=== PATIENT | male | born 1950 | race Caucasian/White ===

== ENCOUNTER → 2017-07-15 09:12 | Outpatient (CLI) | payer MEDICARE ==
[2015-03-11 08:24] VITALS: BMI 25.7
[~2017-07-15 09:12] MED LIST: ATARAX 25 MG TA25 MG PO; BAYER CHEWABLE81 MG PO; GLUCOPHAGE1000 MG PO; LANTUS SOL100 UNIT/1 SQ; LISINOPRIL2.5 MG PO; PLAVIX75 MG PO; PRAVACHOL40 MG PO; PROZAC20 MG PO; TENORMIN25 MG PO
--- NOTE | 2017-07-15 11:29 | NUR ---
ATTEMPTED TO IN AND OUT CATHETERIZE PATIENT WITH 15 BENINESE IN AND OUT CATHETER, UNABLE TO ADVANCE CATHETER, CALLED FOR SMALLER STRAIGHT URINARY CATHETER
--- NOTE | 2017-07-15 11:50 | NUR ---
PATIENT CATHETERIZED SUCCESSFULLY WITH KUDE CATHETER BY GHADA CHILEL RN, ENOUGH URINE DRAINED FOR SPECIMEN AND PATIENT SENT TO BATHROOM TO FINISH URINATING.
[2017-07-15 13:08] LABS: APPEARANCE SLT CLOUDY (CLEAR); COLOR YELLOW (YELLOW); LEUKOCYTE ESTERASE 2+ (NEGATIVE); NITRITE NEGATIVE (NEGATIVE); PROTEIN TRACE mg/dL (NEGATIVE); SPECIFIC GRAVITY 1.015 (1.005-1.020)
[2017-07-15 13:09] LABS: BACTERIA MODERATE /hpf (NONE SEEN); BILIRUBIN NEGATIVE (NEGATIVE); EPITHELIAL CELLS 0-5 /hpf (0-5); GLUCOSE 1000 mg/dL (NEGATIVE); KETONE NEGATIVE (NEGATIVE); MUCUS <1+ /lpf (NONE SEEN); RED CELLS - URINE 0-5 /hpf (0-5); UROBILINOGEN NORMAL (NORMAL); WHITE CELLS - URINE >50 /hpf (0-5)
== END | disposition home or self-care (01) ==
LOC: D.OPS 09:12
PROVIDERS: Radiology Diagnostic Radiology
DX: N39.0 Urinary tract infection, site not specified (principal)

== ENCOUNTER → 2017-07-18 16:29 | Outpatient (CLI) | payer MEDICARE ==
[2017-07-18 17:18] VITALS: BP 125/67; BMI 28.1
--- NOTE | 2017-07-18 17:39 | NUR ---
5258 DISCHARGE INSTRUCTIONS COMPLETE. IN AND OUT CATH DONE. PT HAS NO QUESTIONS OR CONCERNS AT THIS TIME. ESCORTED OUT.
[2017-07-18 19:07] LABS: APPEARANCE CLOUDY (CLEAR); BACTERIA MODERATE /hpf (NONE SEEN); BILIRUBIN NEGATIVE (NEGATIVE); COLOR YELLOW (YELLOW); EPITHELIAL CELLS 0-5 /hpf (0-5); GLUCOSE 1000 mg/dL (NEGATIVE); KETONE NEGATIVE (NEGATIVE); NITRITE NEGATIVE (NEGATIVE); PROTEIN 1+ mg/dL (NEGATIVE); UROBILINOGEN NORMAL (NORMAL); WHITE CELLS - URINE >50 /hpf (0-5)
--- NOTE | 2017-07-19 11:49 | NUR ---
1745 DISCHARGE INSTRUCTIONS GIVEN. PT HAS NO QUESTIONS OR CONCERNS AT THIS TIME. ESCORTED OUT BY CORNELIUS HOWARD.
== END | disposition home or self-care (01) ==
LOC: D.OPS 16:29
PROVIDERS: Radiology Diagnostic Radiology
DX: N39.0 Urinary tract infection, site not specified (principal)

== ENCOUNTER → 2017-07-22 08:05 | Outpatient (CLI) | payer MEDICARE ==
[2017-07-18 17:18] VITALS: BMI 28.1
[2017-07-22 08:38] LABS: APPEARANCE CLOUDY (CLEAR); BILIRUBIN NEGATIVE (NEGATIVE); COLOR YELLOW (YELLOW); GLUCOSE 1000 mg/dL (NEGATIVE); KETONE NEGATIVE (NEGATIVE); NITRITE NEGATIVE (NEGATIVE); PROTEIN 1+ mg/dL (NEGATIVE); UROBILINOGEN NORMAL (NORMAL)
[2017-07-22 08:39] LABS: BACTERIA FEW /hpf (NONE SEEN); WHITE CELLS - URINE >50 /hpf (0-5)
[2017-07-22 08:40] LABS: EPITHELIAL CELLS RARE /hpf (0-5); MUCUS <1+ /lpf (NONE SEEN)
== END | disposition home or self-care (01) ==
LOC: D.LAB 08:05
PROVIDERS: Radiology Diagnostic Radiology
DX: S32.038A Other fracture of third lumbar vertebra, initial encounter for closed fracture (principal)

== ENCOUNTER 2019-08-31 14:15 | Inpatient (IN) | payer MEDICARE ==
[~2019-08-31] VITALS: Ht 175.3 cm; Wt 78.5 kg
[2019-08-31 15:01] LABS: APPEARANCE CLEAR (CLEAR); BILIRUBIN NEGATIVE (NEGATIVE); COLOR YELLOW (YELLOW); GLUCOSE 1000 mg/dL (NEGATIVE); KETONE NEGATIVE (NEGATIVE); NITRITE NEGATIVE (NEGATIVE); PROTEIN NEGATIVE (NEGATIVE); SPECIFIC GRAVITY 1.015 (1.005-1.020); UROBILINOGEN NORMAL (NORMAL)
[2019-08-31 15:02] LABS: UDS - AMPHET NEGATIVE QUAL (NEGATIVE); UDS - BARB NEGATIVE QUAL (NEGATIVE); UDS - BENZO NEGATIVE QUAL (NEGATIVE); UDS - COCAINE NEGATIVE QUAL (NEGATIVE); UDS - OPIATE NEGATIVE QUAL (NEGATIVE); UDS - PCP NEGATIVE QUAL (NEGATIVE); UDS - THC NEGATIVE QUAL (NEGATIVE)
[2019-08-31 15:45] LABS: BASOPHILS 0.3 % (0-2); EOSINOPHILS 2.1 % (0-7); HEMATOCRIT 39.3 % (42.0-54.0); HEMOGLOBIN 12.6 g/dL (13.5-17.5); IMMATURE GRANULOCYTES 0.4 % (0-5); LYMPHOCYTES 15.8 % (15-50); MCH 29.3 pg (26.0-34.0); MCHC 32.1 g/dL (31.0-37.0); MCV 91.4 fL (80.0-100.0); MONOCYTES 7.3 % (2-11); NEUTROPHILS 74.1 % (40-80); PLATELET COUNT 228 10x3/uL (130-400); RDW 13.5 % (11.5-14.5); WBC 9.6 10x3/uL (4.8-10.8)
[2019-08-31 16:00] LABS: CALC OSMOLALITY 289 mosm/kg (275-300); CALCIUM 8.8 mg/dL (8.5-10.1); CARBON DIOXIDE 27.5 mmol/L (21.0-32.0); CHLORIDE - SERUM 101 mmol/L (98-107); CREATININE - SERUM 1.7 mg/dL (0.6-1.3); POTASSIUM - SERUM 4.7 mmol/L (3.5-5.1); SODIUM 135 mmol/L (136-145); UREA NITROGEN 28 mg/dL (7-18); eGFR NON AFRICAN AMERICAN 43 mL/min (90-120)
[2019-08-31 16:06] LABS: GLUCOSE 354 mg/dL (74-106)
[2019-08-31 16:19] LABS: ALBUMIN 3.5 g/dL (3.4-5.0); ALKALINE PHOSPHATASE 74 U/L (46-116); ALT (SGPT) 28 U/L (10-68); BILIRUBIN - TOTAL 0.36 mg/dL (0.2-1.3); CKMB 0.4 U/L (0.0-3.6); CREATINE KINASE 42 UL (21-232); PROTEIN - SERUM 6.7 g/dL (6.4-8.2); THYROID STIMULATING HORMONE 1.57 uIU/mL (0.36-3.74); TROPONIN-I < 0.017 ng/mL (0.000-0.060)
[2019-08-31 16:58] LABS: APTT 26.9 SECONDS (22.8-39.4); INR 1.14 (0.85-1.17); PROTIME 14.1 SECONDS (11.6-15.0)
--- NOTE | 2019-08-31 19:25 | NUR ---
BS 207 SEE EMAR. PT GIVEN MEAL TRAY AT THIS TIME PT SITTING UP IN BED DENIES NEEDS.
[2019-08-31 22:03] VITALS: BP 169/75; BMI 24.4
[2019-09-01 01:06] VITALS: BP 151/76
[2019-09-01 04:49] VITALS: BP 138/71
--- NOTE | 2019-09-01 07:56 | NUR ---
PT LYING IN BED AWAKE ALERT AND ORIENTED, NATIVE, NO NEEDS VOICED, STATED HE IS PLEASED WITH MORNING SUGAR LEVEL. PT BLOOD SUGAR 109 THIS MORNING, CONTINUE WITH PLAN OF CARE
[2019-09-01 09:05] VITALS: BP 130/74
[2019-09-01 10:53] LABS: BASOPHILS 0.3 % (0-2); EOSINOPHILS 2.7 % (0-7); HEMATOCRIT 38.1 % (42.0-54.0); HEMOGLOBIN 12.2 g/dL (13.5-17.5); IMMATURE GRANULOCYTES 0.4 % (0-5); LYMPHOCYTES 15.9 % (15-50); MCH 29.6 pg (26.0-34.0); MCV 92.5 fL (80.0-100.0); MEAN PLATELET VOLUME 10.9 fL (7.4-10.4); MONOCYTES 9.8 % (2-11); NEUTROPHILS 70.9 % (40-80); PLATELET COUNT 215 10x3/uL (130-400); RBC 4.12 10x6/uL (4.20-6.10); RDW 13.6 % (11.5-14.5)
[2019-09-01 11:00] LABS: WBC 7.1 10x3/uL (4.8-10.8)
[2019-09-01 11:10] LABS: ALBUMIN 3.3 g/dL (3.4-5.0); ANION GAP 8.9 mmol/L (8-16); BILIRUBIN - TOTAL 0.51 mg/dL (0.2-1.3); CALCIUM 8.4 mg/dL (8.5-10.1); CARBON DIOXIDE 28.1 mmol/L (21.0-32.0); CREATININE - SERUM 1.5 mg/dL (0.6-1.3); PROTEIN - SERUM 6.7 g/dL (6.4-8.2)
--- NOTE | 2019-09-01 12:16 | NUR ---
I have reviewed this patient and I concur with the Shift Assessment completed by the Licensed Practical Nurse today this shift.
[2019-09-01 12:54] VITALS: BP 185/85
[2019-09-01 13:25] VITALS: Ht 175.3 cm; Wt 78.5 kg
--- NOTE | 2019-09-01 17:09 | NUR ---
OT NOTE: PT COMPLETED SIT TO STAND WITH CGA. PT COMPLETED ADL MOB WITH CGA. PT COMPLETED HAND WASH AT SINK WITH CGA. PT COMPLETED UE AROM AX. THANK YOU,SHARMAINE PALMER
[2019-09-01 17:17] VITALS: BP 119/71
[2019-09-01 20:31] VITALS: BP 139/70
--- NOTE | 2019-09-02 | NUR ---
RESTING IN BED WITH NO S/S OF DISTRESS. REQUESTED TO SKIP MIDNIGHT VS. PAST VS ARE STABLE. WILL CONTINUE TO MONITOR.
--- NOTE | 2019-09-02 00:01 | NUR ---
ANSWERS QUESTIONS APPROPRIATELY BUT IS SLOW TO RESPOND. IV TO THE RT FOREARM WITH NO REDNESS OR SWELLING. ROHIT ALARM ON. DENIES NO NEEDS AT THIS TIME. CONTINUE PLAN OF CARE.
[2019-09-02 03:58] VITALS: BP 134/68
[2019-09-02 06:27] LABS: BASOPHILS 0.3 % (0-2); EOSINOPHILS 3.2 % (0-7); HEMOGLOBIN 12.7 g/dL (13.5-17.5); IMMATURE GRANULOCYTES 0.3 % (0-5); LYMPHOCYTES 23.5 % (15-50); MCH 29.2 pg (26.0-34.0); MCHC 31.8 g/dL (31.0-37.0); MEAN PLATELET VOLUME 11.2 fL (7.4-10.4); MONOCYTES 11.9 % (2-11); NEUTROPHILS 60.8 % (40-80); PLATELET COUNT 227 10x3/uL (130-400); RBC 4.35 10x6/uL (4.20-6.10); RDW 13.8 % (11.5-14.5); WBC 6.2 10x3/uL (4.8-10.8)
[2019-09-02 06:34] LABS: ALBUMIN 3.4 g/dL (3.4-5.0); ANION GAP 12.6 mmol/L (8-16); BILIRUBIN - TOTAL 0.39 mg/dL (0.2-1.3); CALCIUM 8.2 mg/dL (8.5-10.1); CARBON DIOXIDE 27.3 mmol/L (21.0-32.0); CREATININE - SERUM 1.2 mg/dL (0.6-1.3); POTASSIUM - SERUM 3.9 mmol/L (3.5-5.1); PROTEIN - SERUM 6.7 g/dL (6.4-8.2)
--- NOTE | 2019-09-02 07:25 | NUR ---
PT RESTING IN BED. NO SIGNS OF DISTRESS. IV TO RIGHT FORARM PATENT NO REDNESS OR TENDERNESS. ON TELEMETRY 69 SR. ALL FALL PRECAUTIONS ARE IN PLACE. DENIES ANY FURTHER NEED AT THIS TIME. CALL LIGHT IN REACH. BED LOW POSITION. NO FAMILY AT BEDSIDE AT THIS TIME.
[2019-09-02 09:13] VITALS: BP 131/75
--- NOTE | 2019-09-02 10:46 | NUR ---
OT NOTE: PT PERFORMED VERY WELL TODAY. BED MOB WITH CGA; SIT TO STAND WITH MIN ASSIST; AMB WITH MIN ASSIST APPROX 250 FT WITH RW AND G- BALANCE. SLIGHTLY IMPULSIVE WHEN ATTEMPTING TO GET TO CHAIR. EDUCATED PT ON SAFETY AWARENESS AND INSTRUCTED TO USE CALL LIGHT IF NEEDING TO GET UP. AROM EXS WHILE UP IN CHAIR; MIN ASSIST WITH DONNING SOCKS AND GOWN. SET UP WITH WASHING FACE AND HANDS WITH CLOTH. PT A AND O X 3 TODAY. NEHA CUMMINGS, OTR/L
[2019-09-02 12:26] VITALS: BP 110/65
--- NOTE | 2019-09-02 13:39 | MORECARE ---
CASE MANAGEMENT DISCHARGE SUMMARY PATIENT: IWONA ALCANTAR DON UNIT: [id number] ADM DATE: 09/01/19 AGE: 69 : 49 SEX: M ROOM/BED: D.2233 AUTHOR: ERIK REN PHYSICIAN: REFERRING PHYSICIAN: RED NIEVES MD DATE OF SERVICE: 09/02/19 Discharge Plan Patient Name: IWONA ALCANTAR Facility: [facility]:[place] : 1950 Planned Disposition: Home Anticipated Discharge Date: Discharge Date: Expected LOS: Initial Reviewer: [email or web address] Initial Review Date: 09/02/2019 Generated: 09/02/19 2:39 pm DCPIA - Discharge Planning Initial Assessment Updated by [email or web address]: Kaila Strickland on 09/02/19 1:35 pm * Is the patient Alert and Oriented? Yes * How many steps to enter\exit or inside your home? 0/0 * PCP Mary Coates * Pharmacy [facility] * Preadmission Environment Home with Family * ADLs Independent * Equipment Walker * List name and contact numbers for known caregivers / representatives who currently or will assist patient after discharge: Chilango Alcantar - [id number] - [phone] * Verbal permission to speak to the caregivers and representatives has been obtained from the patient. Yes * Community resources currently utilized None * Additional services required to return to the preadmission environment? No * Can the patient safely return to the preadmission environment? Yes * Has this patient been hospitalized within the prior 30 days at any hospital? No Coverage Notice Reviewer: [id number] Raisa Graff Notice Issued Date-Time: 08/31/2019 18:00 Notice Type: Medicare Outpatient Observation Notice Notice Delivered To: Patient Relationship to Patient: Flower Planter Name: Delivery Method: HAND - Hand Delivered Dionna Days: Prior Verbal Notification: Recipient Understood Notice: Recipient Signature: Med Rec Note Co-signed by Attending: Coverage Notice Comment: Patient Name: IWONA ALCANTAR Page 68812 at 1339 All edits/amendments must be made on the electronic document DICTATION DATE: 09/02/19 1339 FAMILY WORKER: SUSAN 09/02/19 1339 RPT#: [id number] [place] DATE: STATUS: ADM IN [facility] [address] [place] [address] END OF REPORT
--- NOTE | 2019-09-02 13:49 | MORECARE ---
CASE MANAGEMENT DISCHARGE SUMMARY PATIENT: IWONA ALCANTAR UNIT: [id number] ADM DATE: 09/01/19 AGE: 69 : 49 SEX: M ROOM/BED: D.2233 AUTHOR: MIKALDOC PHYSICIAN: REFERRING PHYSICIAN: RED NIEVES MD DATE OF SERVICE: 09/02/19 Discharge Plan Patient Name: IWONA ALCANTAR Facility: [facility]:[place] : 1950 Planned Disposition: Home Anticipated Discharge Date: Discharge Date: Expected LOS: Initial Reviewer: [email or web address] Initial Review Date: 09/02/2019 Generated: 09/02/19 2:49 pm Comments DCP- Discharge Planning Updated by [id number]: Kaila Strickland on 09/02/19 12:[address] Patient Name: IWONA ALCANTAR Admission Status: ER Accout number: [id number] Admission Date: 09-01-2019 : 1950 Admission Diagnosis: Attending: RED NIEVES Current LOS: 1 Anticipated DC Date: Planned Disposition: Home Primary Insurance: [facility] MEDICARE SOLUTIONS Discharge Planning Comments: CM met with patient to complete initial dc planning assessment. CM educated patient on the CM role and verbal consent given by patient to complete assessment. Patient lives at home with his mother. States he plans to return home on discharge and feels this is a safe discharge. States he will need to take a taxi to [address] [address] to get his car. States he has money for a taxi. I discussed the availability of inpatient rehab, SNF, home health and additional DME if needed and he declines needs at this time. CM will continue to follow and assist with discharge planning/needs. Line Maintainer: Kaila Strickland DCPIA - Discharge Planning Initial Assessment Updated by [id number]: Kaila Strickland on 09/02/19 1:35 pm * Is the patient Alert and Oriented? Yes * How many steps to enter\exit or inside your home? 0/0 * PCP Mary Coates * [facility] [address] * Preadmission Environment Home with Family * ADLs Independent * Equipment Walker * List name and contact numbers for known caregivers / representatives who currently or will assist patient after discharge: Chilango Alcantar - [id number] - [phone] * Verbal permission to speak to the caregivers and representatives has been obtained from the patient. Yes * Community resources currently utilized None * Additional services required to return to the preadmission environment? No * Can the patient safely return to the preadmission environment? Yes * Has this patient been hospitalized within the prior 30 days at any hospital? No Coverage Notice Reviewer: [id number] Raisa Graff Notice Issued Date-Time: 08/31/2019 18:00 Notice Type: Medicare Outpatient Observation Notice Notice Delivered To: Patient Relationship to Patient: Tank Storage Supervisor Name: Delivery Method: HAND - Hand Delivered Dionna Days: Prior Verbal Notification: Recipient Understood Notice: Recipient Signature: Med Rec Note Co-signed by Attending: Coverage Notice Comment: Last DP export: 09/02/19 12:40 Patient Name: IWONA ALCANTAR Page 37813 at 1349 All edits/amendments must be made on the electronic document DICTATION DATE: 09/02/19 1349 ELECTRIC MOTOR REBUILDER: SUSAN 09/02/19 1349 RPT#: [id number] DC DATE: STATUS: ADM IN [facility] [address] [place] [address] END OF REPORT
[2019-09-02 16:22] VITALS: BP 140/73
[2019-09-02 19:30] VITALS: BP 149/66
[2019-09-03 00:30] VITALS: BP 152/70
[2019-09-03 04:30] VITALS: BP 161/78
[2019-09-03 06:36] LABS: BASOPHILS 0.2 % (0-2); EOSINOPHILS 1.1 % (0-7); HEMATOCRIT 41.7 % (42.0-54.0); HEMOGLOBIN 13.2 g/dL (13.5-17.5); IMMATURE GRANULOCYTES 0.4 % (0-5); LYMPHOCYTES 15.4 % (15-50); MCH 29.1 pg (26.0-34.0); MCHC 31.7 g/dL (31.0-37.0); MCV 92.1 fL (80.0-100.0); MEAN PLATELET VOLUME 11.4 fL (7.4-10.4); MONOCYTES 9.6 % (2-11); NEUTROPHILS 73.3 % (40-80); PLATELET COUNT 226 10x3/uL (130-400); RBC 4.53 10x6/uL (4.20-6.10); RDW 13.8 % (11.5-14.5)
[2019-09-03 06:46] LABS: WBC 10.3 10x3/uL (4.8-10.8)
[2019-09-03 07:11] LABS: ALBUMIN 3.4 g/dL (3.4-5.0); BILIRUBIN - TOTAL 0.35 mg/dL (0.2-1.3); CALCIUM 8.4 mg/dL (8.5-10.1); CREATININE - SERUM 1.4 mg/dL (0.6-1.3)
[2019-09-03 08:03] LABS: ANION GAP 14.2 mmol/L (8-16); POTASSIUM - SERUM 3.2 mmol/L (3.5-5.1)
[2019-09-03 09:02] VITALS: BP 131/66
--- NOTE | 2019-09-03 11:29 | NUR ---
BILLY SINAN- [phone] WOULD LIKE TO ADD HER PHONE NUMBER A SECONDARY CONTACT IF POSSIBLE. PATIENT AGREES.
[2019-09-03 13:07] VITALS: BP 126/59
--- NOTE | 2019-09-03 13:37 | NUR ---
NUTRITION F/U PT TOLERATING DIABETIC DIET. REPORTS GOOD APPETITE AND PO INTAKE. WILL CONTINUE TO PROVIDE DIET, MONITOR PO INTAKE. RD FOLLOWING
--- NOTE | 2019-09-03 14:03 | NUR ---
OT NOTE: PT DOING WELL. REMAINS CGA FOR IN ROOM AMBULATION, TRANSFERS, AND ADLS DUE TO IMPULSIVITY. CONT WORKING ON SAFETY AWARENESS DEFECITS. NEHA CUMMINGS, OTR/L
--- NOTE | 2019-09-03 15:14 | NUR ---
OT NOTE: PT EXHIBITS DECREASED SAFETY AWARENESS. PT REQUIRED CGA FOR ADL MOB AND DYNAMIC BALANCE AXS SECONDARY TO IMPULSIVITY. PT COMPLETED TOILETING TASKS WITH DONNA Maldonado. THANK YOU,SHARMAINE PALMER
[2019-09-03 16:45] VITALS: BP 149/73
--- NOTE | 2019-09-03 19:00 | NUR ---
BEDSIDE REPORT RECEIVED AND CARE OF PT ASSUMED. PT LYING IN SUPINE POSITION WATCHING TV. IV TO LEFT FA SALINE LOCKED. WILL MONITOR FOR NEEDS. BED ALARM IN USE FOR SAFETY.
[2019-09-03 19:30] VITALS: BP 175/76
--- NOTE | 2019-09-03 21:25 | NUR ---
HS MEDICATIONS GIVEN. FSBS 105 THIS CHECK REQUIRING NO COVERAGE PER SLIDING SCALE.
[2019-09-04] VITALS: BP 133/57
[2019-09-04 04:00] VITALS: BP 140/68
[2019-09-04 05:42] LABS: BASOPHILS 0.3 % (0-2); EOSINOPHILS 2.4 % (0-7); HEMATOCRIT 39.3 % (42.0-54.0); HEMOGLOBIN 12.5 g/dL (13.5-17.5); IMMATURE GRANULOCYTES 0.3 % (0-5); LYMPHOCYTES 23.9 % (15-50); MCH 29.3 pg (26.0-34.0); MCHC 31.8 g/dL (31.0-37.0); MCV 92.3 fL (80.0-100.0); MONOCYTES 9.7 % (2-11); NEUTROPHILS 63.4 % (40-80); PLATELET COUNT 203 10x3/uL (130-400); RBC 4.26 10x6/uL (4.20-6.10); RDW 13.8 % (11.5-14.5)
[2019-09-04 05:48] LABS: WBC 7.6 10x3/uL (4.8-10.8)
[2019-09-04 06:32] LABS: ALBUMIN 3.3 g/dL (3.4-5.0); ANION GAP 14.4 mmol/L (8-16); BILIRUBIN - TOTAL 0.29 mg/dL (0.2-1.3); CALCIUM 8.1 mg/dL (8.5-10.1); CARBON DIOXIDE 24.4 mmol/L (21.0-32.0); CREATININE - SERUM 1.4 mg/dL (0.6-1.3); POTASSIUM - SERUM 3.8 mmol/L (3.5-5.1); PROTEIN - SERUM 6.3 g/dL (6.4-8.2)
[2019-09-04 08:07] VITALS: BP 141/60
[2019-09-04 12:58] VITALS: BP 145/80
--- NOTE | 2019-09-04 16:00 | NUR ---
IV THERAPY RESTARTED IN LEFT FOREARM WITH 22G. ONE ATTEMPT. IV THERAPY DC'ED FROM LEFT FOREARM WHERE IT WAS PREVIOUSLY. CONSIDERABLE AMOUNT OF HAIR WAS REMOVED AND REDNESS WHERE IT WAS. CL IN REACH. TOLERATED WELL. WCTM
[2019-09-04 17:43] VITALS: BP 146/62
--- NOTE | 2019-09-04 19:00 | NUR ---
BEDSIDE REPORT RECEIVED AND CARE OF PT ASSUMED. PT LYING IN LOW HADLEY'S POSITION WATCHING TV. IV TO LEFT FA SALINE LOCKED. TELEMETRY IN PLACE PER ORDER. BED ALARM IN USE FOR SAFETY.
[2019-09-04 20:00] VITALS: BP 121/68
--- NOTE | 2019-09-04 20:01 | NUR ---
OT NOTE: PT COMPLETED ADL MOB WITH CGA. PT COMPLETED SIT TO STAND WITH CGA. PT COMPLETED LB HYGIENE TASKS WITH CGA. THANK YOU, SHARMAINE PALMER
--- NOTE | 2019-09-04 20:01 | NUR ---
HS MEDICATIONS GIVEN. FSBS 213 THIS CHECK REQUIRING COVERAGE WITH 4 UNITS OF REGULAR INSULIN PER SLIDING SCALE. GAVE SNACK OF JIGNESH CRACKERS.
--- NOTE | 2019-09-04 23:17 | NUR ---
PT SHOWERED, SHAVED AND PERFORMED ORAL CARE. ALL BEDDING AND GOWN CHANGED.
[2019-09-05] VITALS: BP 129/59
[2019-09-05 04:00] VITALS: BP 96/69
[2019-09-05 06:36] LABS: BASOPHILS 0.1 % (0-2); EOSINOPHILS 0 % (0-7); HEMATOCRIT 38.3 % (42.0-54.0); HEMOGLOBIN 12.6 g/dL (13.5-17.5); IMMATURE GRANULOCYTES 0.2 % (0-5); LYMPHOCYTES 6.9 % (15-50); MCH 29.5 pg (26.0-34.0); MCHC 32.9 g/dL (31.0-37.0); MEAN PLATELET VOLUME 11.2 fL (7.4-10.4); MONOCYTES 2.1 % (2-11); NEUTROPHILS 90.7 % (40-80); PLATELET COUNT 212 10x3/uL (130-400); RBC 4.27 10x6/uL (4.20-6.10); RDW 13.4 % (11.5-14.5); WBC 9.4 10x3/uL (4.8-10.8)
[2019-09-05 06:40] LABS: MCV 89.7 fL (80.0-100.0)
[2019-09-05 07:03] LABS: ALBUMIN 3.5 g/dL (3.4-5.0); ANION GAP 14.2 mmol/L (8-16); BILIRUBIN - TOTAL 0.4 mg/dL (0.2-1.3); CALCIUM 8.5 mg/dL (8.5-10.1); CREATININE - SERUM 1.1 mg/dL (0.6-1.3); POTASSIUM - SERUM 4.2 mmol/L (3.5-5.1)
--- NOTE | 2019-09-05 08:07 | NUR ---
AWAKE AND ALERT. ORIENTED X3. NO C/O AT THIS TIME. LUNGS ARE CLEAR BILATERALLY, NO COUGH NOTED. SKIN IS INTACT WTIHOUT REDNESS. SL TO LEFT FOREARM IS PATENT WITHOUT REDNESS AT INSERTION SITE. VOIDED CLEAR YELLOW URINE IN URINAL. DENIES NEEDS.
[2019-09-05 08:45] VITALS: BP 136/78
--- NOTE | 2019-09-05 10:00 | NUR ---
ATE ALMOST ALL OF BREAKFAST. DENIES NEEDS.
[2019-09-05 12:32] VITALS: BP 132/66
--- NOTE | 2019-09-05 13:14 | CN ---
PATIENT NAME:IWONA BIRCH MEDICAL RECORD: [id number] : [birth year] LOCATION:D.MS [id number] ADMIT DATE: 09/01/19 ACCOUNT: [id number] CONSULTING PHYSICIAN: BEATRIZ OROPEZA MD REFERRING PHYSICIAN: RED NIEVES MD DATE OF CONSULTATION: 09/04/2019 IDENTIFYING DATA: The patient is 69 years old and he was admitted to the hospital 4 days ago because of hyperglycemia and incontinence. HISTORY OF PRESENT ILLNESS: The patient is currently being treated medically. He did have some confusion. At that time, he was admitted and I have reviewed the chart and I am unclear about what I am being asked to evaluate. Please clarify and reconsult if he is still a patient you wish me to see. I do not understand the reason for consult. TRANSINT:[id number] Voice Confirmation ID: [id number] DOCUMENT ID: [id number] BEATRIZ OROPEZA MD at 1314 CC: [id number] DICTATION DATE: 09/04/19 174 ORNAMENT STITCHER: 09/04/19 1830 ADM IN [facility] [address] [place] [address]
[2019-09-05 16:43] VITALS: BP 146/68
--- NOTE | 2019-09-05 17:00 | NUR ---
FSBS 309. GIVEN 8 UNITS REGULAR SUBQ PER SS. CONSENTS FOR AM SURGERY SIGNED AT THIS TIME. ALL QUESTIONS ANSWERED.
--- NOTE | 2019-09-05 18:24 | NUR ---
ATE MOST OF SUPPER. DENIES NEEDS. NO CHANGES NOTED.
--- NOTE | 2019-09-05 19:00 | NUR ---
BEDSIDE REPORT RECEIVED AND CARE OF PT ASSUMED. PT LYING IN SUPINE POSITION WITH EYES CLOSED. IV TO LEFT FA SALINE LOCKED. TELEMETRY IN PLACE AND READING 53 SB AT THIS ASSESSMENT. WILL MONITOR FOR NEEDS.
[2019-09-05 19:57] VITALS: BP 152/73
--- NOTE | 2019-09-05 20:04 | NUR ---
HS MEDICATIONS GIVEN. FSBS 270 THIS CHECK REQUIRING COVERAGE WITH 6 UNITS OF INSULIN PER SLIDING SCALE. WILL CONTINUE TO MONITOR FOR NEEDS.
--- NOTE | 2019-09-05 22:41 | NUR ---
PT HAD HIBACLENS SHOWER AND ALLL LINENS AND GOWN CHANGED.
[2019-09-06] VITALS (19 sets, daily range): BP systolic 116–185; BP diastolic 58–100
--- NOTE | 2019-09-06 | NUR ---
VS STABLE. WILL CONTINUE TO MONITOR.
--- NOTE | 2019-09-06 | NUR ---
NPO STATUS STARTS NOW FOR AM SURGERY.
[2019-09-06 06:33] LABS: BASOPHILS 0 % (0-2); EOSINOPHILS 0 % (0-7); HEMATOCRIT 36.2 % (42.0-54.0); HEMOGLOBIN 11.8 g/dL (13.5-17.5); IMMATURE GRANULOCYTES 0.2 % (0-5); LYMPHOCYTES 9.2 % (15-50); MCH 29.4 pg (26.0-34.0); MCHC 32.6 g/dL (31.0-37.0); MEAN PLATELET VOLUME 11.7 fL (7.4-10.4); MONOCYTES 4.9 % (2-11); NEUTROPHILS 85.7 % (40-80); PLATELET COUNT 221 10x3/uL (130-400); RBC 4.02 10x6/uL (4.20-6.10); RDW 13.6 % (11.5-14.5); WBC 8.7 10x3/uL (4.8-10.8)
[2019-09-06 07:00] LABS: ALBUMIN 3.2 g/dL (3.4-5.0); ANION GAP 12.4 mmol/L (8-16); BILIRUBIN - TOTAL 0.31 mg/dL (0.2-1.3); CALCIUM 8.6 mg/dL (8.5-10.1); CARBON DIOXIDE 26.6 mmol/L (21.0-32.0); CREATININE - SERUM 1.3 mg/dL (0.6-1.3); PROTEIN - SERUM 6.9 g/dL (6.4-8.2)
--- NOTE | 2019-09-06 07:59 | NUR ---
AWAKE AND ALERT. ORIENTED X3. NO C/O AT THIS TIME. LUNGS ARE CLEAR BILATERALLY, NO COUGH NOTED. SKIN IS INTACT WITHOUT REDNESS. SL TO LEFT FOREARM IS PATENT WITHOUT REDNESS AT INSERTION SITE. DENIES NEEDS. NPO FOR SURGERY THIS AM.
--- NOTE | 2019-09-06 08:45 | NUR ---
OFF UNIT VIA BED TO SURGERY.
--- NOTE | 2019-09-06 12:10 | NUR ---
REC'D VIA BED FROM RECOVERY ROOM NURSE, JANICE AND KADE, C/O OF BEING TIRED, BUT NOT HAVING ANY PAIN, VS BP 167/90, HR 70, RR 10,, AND SAT 98% ON ROOM AIR, RIGHT NECK, DRESSING CDI, PIV TO LFT WRIST WITH NS ATTACHED, ASSESSMENT COMPLETED PER FLOWSHEET, NO FAMILY IN WAITING ROOM AT THIS TIME, WILL CONTINUE TO MONITOR
--- NOTE | 2019-09-06 14:09 | NUR ---
C/O OF PAIN 6-7/10 IN NECK, NORCO 5/325 X2, ROBAXIN 750MG, AND DECAFRON 4MG GIVEN PER MAR ORDER, APPLE JUICE AND JELLO TO BEDSIDE, WILL CONTINUE TO MONITOR
--- NOTE | 2019-09-06 16:19 | NUR ---
PC TO JIGNESH BIRCH WHO IS PATIENTS MOM, STATUS UPDATED, STATES SHE WILL CALL BACK ON TOMORROW, NO OTHER NEEDS AT THIS TIME
--- NOTE | 2019-09-06 18:06 | NUR ---
BEDSIDE SHIFT REPORT OBTAINED FROM DANIEL HOWARD.
--- NOTE | 2019-09-06 19:00 | NUR ---
DURING BEDSIDE SHIFT REPORT PT ATTEMPTED TO GET OUT OF BED TO LEAVE TO GO TO THE BATHROOM. ATTEMPTED REORIENTATION. PT INCREASINGLY AGGITATED. URINAL PROVIDED. PT STATES "HE WANTS A NEW NURSE AND WE ARE TRYING TO RESTRAIN HIM." PT REFUSES TO WEAR SCD. WILL CONTINUE TO MONITOR.
--- NOTE | 2019-09-06 20:00 | NUR ---
VS STABLE. WILL CONTINUE TO MONITOR.
--- NOTE | 2019-09-06 20:09 | NUR ---
DR BUI INFORMED OF PT STATUS. NO CERVICAL COLLAR NEEDED. NO PM PAIN MED TO BE GIVEN. NO SCD NEEDED. WILL CONTINUE TO MONITOR.
--- NOTE | 2019-09-06 22:00 | NUR ---
VS STABLE. WILL CONTINUE TO MONITOR.
[2019-09-07] VITALS (9 sets, daily range): BP systolic 137–171; BP diastolic 60–91
--- NOTE | 2019-09-07 02:00 | NUR ---
VS STABLE. WILL CONTINUE TO MONITOR.
--- NOTE | 2019-09-07 04:00 | NUR ---
VS STABLE. WILL CONTINUE TO MONITOR.
[2019-09-07 04:23] LABS: BASOPHILS 0.1 % (0-2); EOSINOPHILS 0 % (0-7); HEMATOCRIT 34.7 % (42.0-54.0); IMMATURE GRANULOCYTES 0.2 % (0-5); LYMPHOCYTES 8.8 % (15-50); MCHC 31.7 g/dL (31.0-37.0); MCV 91.6 fL (80.0-100.0); MEAN PLATELET VOLUME 11.5 fL (7.4-10.4); MONOCYTES 7.7 % (2-11); NEUTROPHILS 83.2 % (40-80); PLATELET COUNT 230 10x3/uL (130-400); RBC 3.79 10x6/uL (4.20-6.10); RDW 13.8 % (11.5-14.5)
[2019-09-07 04:36] LABS: WBC 11.3 10x3/uL (4.8-10.8)
[2019-09-07 04:55] LABS: ANION GAP 11.5 mmol/L (8-16); BILIRUBIN - TOTAL 0.39 mg/dL (0.2-1.3); CALCIUM 7.8 mg/dL (8.5-10.1); CARBON DIOXIDE 27.4 mmol/L (21.0-32.0); CREATININE - SERUM 1.1 mg/dL (0.6-1.3); MAGNESIUM - SERUM 2.1 mg/dL (1.8-2.4); POTASSIUM - SERUM 3.9 mmol/L (3.5-5.1); PROTEIN - SERUM 6.6 g/dL (6.4-8.2)
--- NOTE | 2019-09-07 06:00 | NUR ---
VS STABLE. WILL CONTINUE TO MONITOR.
--- NOTE | 2019-09-07 07:00 | NUR ---
BEDSIDE REPORT RECEIVED. PT AGGITATED AND ANGRY, REFUSING MEDICATIONS, VS, ASSESSMENTS ETC. PT DEMANDED PIV TO BE REMOVED. L FA PIV REMOVED CATH INTACT. PT ABLE TO STATE NAME DATE AND SITUATION. PT ABLE TO STATE 2/3 WORDS GIVEN TO HIM AT THE BEGINNING OF THE ASSESSMENT. PT STATES HE IS LEAVING AT THIS TIME. WAS TOLD HE COULD NOT LEAVE UNTIL I WAS ABLE TO CLARIFY WITH DR BUI. DR BUI PAGED AT THIS TIME. PT PACING IN HIS ROOM.
--- NOTE | 2019-09-07 08:00 | NUR ---
DR BUI AT BEDSIDE. PT AGREED TO GOING TO THE FLOOR AND GOING TO REHAB UPON DISCHARGE. DR BUI NEW ORDER TO TRANSFER OUT OF ICU IMMEDIATELY. HOUSE SUP CALLED GIVEN UPDATE.
--- NOTE | 2019-09-07 08:30 | NUR ---
RECEIVED PATIENT FROM ICU. ALERT AND ORIENTED. UP AD HUY. NO C/O PAIN. NO S/S OF ACUTE DISTRESS NOTED. IV TO LEFT FOREARM, SL. SITE PATENT WITHOUT REDNESS OR SWELLING. DENIES ANY NEEDS AT THIS TIME. CALL LIGHT IN REACH. WILL CONTINUE TO MONITOR.
--- NOTE | 2019-09-07 09:41 | NUR ---
I have reviewed this patient and I concur with the Shift Assessment completed by the Licensed Practical Nurse today this shift.
--- NOTE | 2019-09-07 10:01 | NUR ---
Nutrition follow-up: Diet advanced to consistent CHO PO intake 100% of meals Labs reviewed WT: 173# Will provide food choices with selective menus and honor food preferences within diet restrictions. RDN following.
--- NOTE | 2019-09-07 18:44 | NUR ---
ALERT AND ORIENTED, RESTING IN BED. NO C/O PAIN. NO S/S OF ACUTE DISTRESS NOTED. DENIES ANY NEEDS AT THIS TIME. CALL LIGHT IN REACH. WILL CONTINUE TO MONITOR.
--- NOTE | 2019-09-08 04:52 | NUR ---
I have reviewed this patient and I concur with the Shift Assessment completed by the Licensed Practical Nurse today this shift.
[2019-09-08 06:38] LABS: ALBUMIN 2.9 g/dL (3.4-5.0); ANION GAP 11.1 mmol/L (8-16); BILIRUBIN - TOTAL 0.39 mg/dL (0.2-1.3); CALCIUM 8.1 mg/dL (8.5-10.1); CARBON DIOXIDE 27.7 mmol/L (21.0-32.0); CREATININE - SERUM 1.3 mg/dL (0.6-1.3); POTASSIUM - SERUM 3.8 mmol/L (3.5-5.1); PROTEIN - SERUM 6.5 g/dL (6.4-8.2)
[2019-09-08 06:51] LABS: BASOPHILS 0 % (0-2); EOSINOPHILS 0 % (0-7); HEMATOCRIT 34.8 % (42.0-54.0); IMMATURE GRANULOCYTES 0.3 % (0-5); LYMPHOCYTES 11.7 % (15-50); MCH 28.9 pg (26.0-34.0); MCHC 31.6 g/dL (31.0-37.0); MCV 91.6 fL (80.0-100.0); MEAN PLATELET VOLUME 12.1 fL (7.4-10.4); MONOCYTES 10.7 % (2-11); NEUTROPHILS 77.3 % (40-80); PLATELET COUNT 226 10x3/uL (130-400); RDW 13.9 % (11.5-14.5); WBC 10.1 10x3/uL (4.8-10.8)
--- NOTE | 2019-09-08 09:48 | NUR ---
Rehab Prescreening Consult recieved and the chart has been reviewed. He is [facility] and would reguire a preauth for the rehab. He is up ad aleida and has been signed off by PT. He is to high level for the ARU at this time. Discussed with the CM Kaila Awan RN Clinical Liaison, Rehab
--- NOTE | 2019-09-08 09:53 | MORECARE ---
CASE MANAGEMENT DISCHARGE SUMMARY PATIENT: IWONA ALCANTAR DON UNIT: [id number] ADM DATE: 09/01/19 AGE: 69 : 49 SEX: M ROOM/BED: D.2229 AUTHOR: ERIK REN PHYSICIAN: REFERRING PHYSICIAN: RED NIEVES MD DATE OF SERVICE: 09/08/19 Discharge Plan Patient Name: IWONA ALCANTAR Facility: [facility]:[place] : 1950 Planned Disposition: Home Anticipated Discharge Date: Discharge Date: Expected LOS: Initial Reviewer: [email or web address] Initial Review Date: 09/02/2019 Generated: 09/08/19 10:53 am Comments DCP- Discharge Planning Updated by [id number]: Kaila Strickland on 09/08/19 8:[address] I met with patient today concerning discharge planning/needs. He states a family friend is taking care of his mother while he is in the hospital. He states Dr. Berg wants him to get rehab. I discussed the availability of inpatient rehab vs SNF. He understands he will need authorization from insurance prior to admission to rehab. He states he would like to stay here at [facility] for inpatient rehab. I have placed an order for PT/OT to continue to see him and a rehab screen. CM will continue to follow and assist with discharge planning/needs. DCP- Discharge Planning Updated by [id number]: Kaila Strickland on 09/02/19 12:[address] Patient Name: IWONA ALCANTAR Admission Status: ER Accout number: [id number] Admission Date: 09-01-2019 : 1950 Admission Diagnosis: Attending: RED NIEVES Current LOS: 1 Anticipated DC Date: Planned Disposition: Home Primary Insurance: [facility] MEDICARE SOLUTIONS Discharge Planning Comments: CM met with patient to complete initial dc planning assessment. CM educated patient on the CM role and verbal consent given by patient to complete assessment. Patient lives at home with his mother. States he plans to return home on discharge and feels this is a safe discharge. States he will need to take a taxi to [facility] [address] to get his car. States he has money for a taxi. I discussed the availability of inpatient rehab, SNF, home health and additional DME if needed and he declines needs at this time. CM will continue to follow and assist with discharge planning/needs. Print Graphic Designer: Kaila Strickland DCPIA - Discharge Planning Initial Assessment Updated by [id number]: Kaila Strickland on 09/02/19 1:35 pm * Is the patient Alert and Oriented? Yes * How many steps to enter\exit or inside your home? 0/0 * PCP Mary Coates * Pharmacy [facility] on [address] * Preadmission Environment Home with Family * ADLs Independent * Equipment Walker * List name and contact numbers for known caregivers / representatives who currently or will assist patient after discharge: Chilango Alcantar - [id number] - [phone] * Verbal permission to speak to the caregivers and representatives has been obtained from the patient. Yes * Community resources currently utilized None * Additional services required to return to the preadmission environment? No * Can the patient safely return to the preadmission environment? Yes * Has this patient been hospitalized within the prior 30 days at any hospital? No Coverage Notice Reviewer: [id number] Raisa Graff Notice Issued Date-Time: 08/31/2019 18:00 Notice Type: Medicare Outpatient Observation Notice Notice Delivered To: Patient Relationship to Patient: Special Police Officer Name: Delivery Method: HAND - Hand Delivered Dionna Days: Prior Verbal Notification: Recipient Understood Notice: Recipient Signature: Anibal Rec Note Co-signed by Attending: Coverage Notice Comment: Last DP export: 09/02/19 12:49 Patient Name: IWONA ALCANTAR Page 21100 at 0953 All edits/amendments must be made on the electronic document DICTATION DATE: 09/08/19952 SOLAR SALES SPECIALIST: SUSAN 09/08/19 09 RPT#: [id number] DC DATE: STATUS: ADM IN [facility] [address] [place] [address] END OF REPORT
--- NOTE | 2019-09-08 12:45 | MORECARE ---
CASE MANAGEMENT DISCHARGE SUMMARY PATIENT: IWONA ALCANTAR DON UNIT: [id number] ADM DATE: 09/01/19 AGE: 69 : 49 SEX: M ROOM/BED: D.2229 AUTHOR: ERIK REN PHYSICIAN: REFERRING PHYSICIAN: RED NIEVES MD DATE OF SERVICE: 09/08/19 Discharge Plan Patient Name: IWONA ALCANTAR Facility: [facility]:[place] : 1950 Planned Disposition: Home Anticipated Discharge Date: Discharge Date: Expected LOS: Initial Reviewer: [email or web address] Initial Review Date: 09/02/2019 Generated: 09/08/19 1:45 pm Comments DCP- Discharge Planning Updated by [email or web address]: Kaila Strickland on 09/08/19 8:[address] I met with patient today concerning discharge planning/needs. He states a family friend is taking care of his mother while he is in the hospital. He states Dr. Berg wants him to get rehab. I discussed the availability of inpatient rehab vs SNF. He understands he will need authorization from insurance prior to admission to rehab. He states he would like to stay here at [facility] for inpatient rehab. I have placed an order for PT/OT to continue to see him and a rehab screen. CM will continue to follow and assist with discharge planning/needs. DCP- Discharge Planning Updated by [id number]: Kaila Strickland on 09/02/19 12:[address] Patient Name: IWONA ALCANTAR Admission Status: ER Accout number: [id number] Admission Date: 09-01-2019 : 1950 Admission Diagnosis: Attending: RED NIEVES Current LOS: 1 Anticipated DC Date: Planned Disposition: Home Primary Insurance: [facility] MEDICARE SOLUTIONS Discharge Planning Comments: CM met with patient to complete initial dc planning assessment. CM educated patient on the CM role and verbal consent given by patient to complete assessment. Patient lives at home with his mother. States he plans to return home on discharge and feels this is a safe discharge. States he will need to take a taxi to [facility] [address] to get his car. States he has money for a taxi. I discussed the availability of inpatient rehab, SNF, home health and additional DME if needed and he declines needs at this time. CM will continue to follow and assist with discharge planning/needs. Knot Bumper: Kaila Strickland DCPIA - Discharge Planning Initial Assessment Updated by [email or web address]: Kaila Strickland on 09/02/19 1:35 pm * Is the patient Alert and Oriented? Yes * How many steps to enter\exit or inside your home? 0/0 * PCP Mary Coates * Pharmacy [facility] on [address] * Preadmission Environment Home with Family * ADLs Independent * Equipment Walker * List name and contact numbers for known caregivers / representatives who currently or will assist patient after discharge: Chilango Alcantar - [id number] - [phone] * Verbal permission to speak to the caregivers and representatives has been obtained from the patient. Yes * Community resources currently utilized None * Additional services required to return to the preadmission environment? No * Can the patient safely return to the preadmission environment? Yes * Has this patient been hospitalized within the prior 30 days at any hospital? No External Providers External Provider: [facility] Next Contact Date: Service Request Date: Service Type: Resolution: Reviewer: Comments: Coverage Notice Reviewer: [id number] Raisa Graff Notice Issued Date-Time: 08/31/2019 18:00 Notice Type: Medicare Outpatient Observation Notice Notice Delivered To: Patient Relationship to Patient: Science Instructor Name: Delivery Method: HAND - Hand Delivered Dionna Days: Prior Verbal Notification: Recipient Understood Notice: Recipient Signature: Med Rec Note Co-signed by Attending: Coverage Notice Comment: Last DP export: 09/08/19 8:53 Patient Name: IWONA ALCANTAR Page [phone] at 1245 All edits/amendments must be made on the electronic document DICTATION DATE: 09/08/19 1245 SANDWICH HAND: SUSAN 09/08/19 1245 RPT#: [id number] [place] DATE: STATUS: ADM IN [facility] [address] [place] [address] END OF REPORT
--- NOTE | 2019-09-08 12:51 | MORECARE ---
CASE MANAGEMENT DISCHARGE SUMMARY PATIENT: IWONA ALCANTAR DON UNIT: [id number] ADM DATE: 09/01/19 AGE: 69 : 49 SEX: M ROOM/BED: D.2229 AUTHOR: ERIK REN PHYSICIAN: REFERRING PHYSICIAN: RED NIEVES MD DATE OF SERVICE: 09/08/19 Discharge Plan Patient Name: IWONA ALCANTAR Facility: [facility]:[place] : 1950 Planned Disposition: Home Anticipated Discharge Date: Discharge Date: Expected LOS: Initial Reviewer: [email or web address] Initial Review Date: 09/02/2019 Generated: 09/08/19 1:51 pm Comments DCP- Discharge Planning Updated by [id number]: Kaila Strickland on 09/08/19 8:[address] I met with patient today concerning discharge planning/needs. He states a family friend is taking care of his mother while he is in the hospital. He states Dr. Berg wants him to get rehab. I discussed the availability of inpatient rehab vs SNF. He understands he will need authorization from insurance prior to admission to rehab. He states he would like to stay here at [facility] for inpatient rehab. I have placed an order for PT/OT to continue to see him and a rehab screen. CM will continue to follow and assist with discharge planning/needs. DCP- Discharge Planning Updated by [id number]: Kaila Strickland on 09/02/19 12:[address] Patient Name: IWONA ALCANTAR Admission Status: ER Accout number: [id number] Admission Date: 09-01-2019 : 1950 Admission Diagnosis: Attending: RED NIEVES Current LOS: 1 Anticipated DC Date: Planned Disposition: Home Primary Insurance: [facility] MEDICARE SOLUTIONS Discharge Planning Comments: CM met with patient to complete initial dc planning assessment. CM educated patient on the CM role and verbal consent given by patient to complete assessment. Patient lives at home with his mother. States he plans to return home on discharge and feels this is a safe discharge. States he will need to take a taxi to [address] [address] to get his car. States he has money for a taxi. I discussed the availability of inpatient rehab, SNF, home health and additional DME if needed and he declines needs at this time. CM will continue to follow and assist with discharge planning/needs. Taxi Dancer: Kaila Em DCPIA - Discharge Planning Initial Assessment Updated by [id number]: Kaila Strickland on 09/02/19 1:35 pm * Is the patient Alert and Oriented? Yes * How many steps to enter\exit or inside your home? 0/0 * PCP Mary Coates * Pharmacy [facility] on [address] * Preadmission Environment Home with Family * ADLs Independent * Equipment Walker * List name and contact numbers for known caregivers / representatives who currently or will assist patient after discharge: Chilango Alcantar - [email or web address] - [phone] * Verbal permission to speak to the caregivers and representatives has been obtained from the patient. Yes * Community resources currently utilized None * Additional services required to return to the preadmission environment? No * Can the patient safely return to the preadmission environment? Yes * Has this patient been hospitalized within the prior 30 days at any hospital? No Coverage Notice Reviewer: [id number] Raisa Graff Notice Issued Date-Time: 08/31/2019 18:00 Notice Type: Medicare Outpatient Observation Notice Notice Delivered To: Patient Relationship to Patient: Barrel Rib Matting Machine Operator Name: Delivery Method: HAND - Hand Delivered Dionna Days: Prior Verbal Notification: Recipient Understood Notice: Recipient Signature: Med Rec Note Co-signed by Attending: Coverage Notice Comment: Reviewer: [id number] - Kaila Strickland Notice Issued Date-Time: 09/08/2019 12:47 Notice Type: Patient Choice Letter Notice Delivered To: Patient Relationship to Patient: Self Barrel Rib Matting Machine Operator Name: Delivery Method: HAND - Hand Delivered Dionna Days: Prior Verbal Notification: Recipient Understood Notice: Yes Recipient Signature: Yes Med Rec Note Co-signed by Attending: Coverage Notice Comment: [facility] for [facility] or second choice is [facility] Last DP export: 09/08/19 11:45 Patient Name: IWONA ALCANTAR Page [id number] at 1251 All edits/amendments must be made on the electronic document DICTATION DATE: 09/08/19 1251 ACID ADJUSTER: SUSAN 09/08/19 1251 RPT#: [id number] MS DATE: STATUS: ADM IN [place] [address] [place] [address] END OF REPORT
--- NOTE | 2019-09-08 13:05 | MORECARE ---
CASE MANAGEMENT DISCHARGE SUMMARY PATIENT: IWONA ALCANTAR UNIT: [id number] ADM DATE: 09/01/19 AGE: 69 : 49 SEX: M ROOM/BED: D.2229 AUTHOR: MIKAL,DOC PHYSICIAN: REFERRING PHYSICIAN: RED NIEVES MD DATE OF SERVICE: 09/08/19 Discharge Plan Patient Name: IWONA ALCANTAR Facility: [facility]:[place] : 1950 Planned Disposition: Home Anticipated Discharge Date: Discharge Date: Expected LOS: Initial Reviewer: [id number] Initial Review Date: 09/02/2019 Generated: 09/08/19 2:05 pm Comments DCP- Discharge Planning Updated by [id number]: Kaila Em on 09/08/19 12:[address] Patient is too high level for inpatient rehab per Massiel. I spoke with the patient and he is agreeable to home health which PT and OT recommend. IKE for [facility] signed. I spoke with Taty at [facility] and referral faxed. He states he has a friend that will run errands for him and does house keeping. He states she also may be able to pick him up at discharge. Her name is Kat Cartagena and phone number is [phone]. I called her and she states she will be able to transport him home and to call her at her number or if it is in the morning to call at the patient's house, she will be taking care of his mother. CM will continue to follow and assist with discharge planning/needs. DCP- Discharge Planning Updated by [id number]: Kaila Strickland on 09/08/19 8:[address] I met with patient today concerning discharge planning/needs. He states a family friend is taking care of his mother while he is in the hospital. He states Dr. Berg wants him to get rehab. I discussed the availability of inpatient rehab vs SNF. He understands he will need authorization from insurance prior to admission to rehab. He states he would like to stay here at [facility] for inpatient rehab. I have placed an order for PT/OT to continue to see him and a rehab screen. CM will continue to follow and assist with discharge planning/needs. DCP- Discharge Planning Updated by [id number]: Kaila Strickland on 09/02/19 12:[address] Patient Name: IWONA ALCANTAR Admission Status: ER Accout number: [id number] Admission Date: 09-01-2019 : 1950 Admission Diagnosis: Attending: RED NIEVES Current LOS: 1 Anticipated DC Date: Planned Disposition: Home Primary Insurance: [facility] MEDICARE SOLUTIONS Discharge Planning Comments: CM met with patient to complete initial dc planning assessment. CM educated patient on the CM role and verbal consent given by patient to complete assessment. Patient lives at home with his mother. States he plans to return home on discharge and feels this is a safe discharge. States he will need to take a taxi to [facility] [address] to get his car. States he has money for a taxi. I discussed the availability of inpatient rehab, SNF, home health and additional DME if needed and he declines needs at this time. CM will continue to follow and assist with discharge planning/needs. District Administrative Assistant: Kaila Strickland DCPIA - Discharge Planning Initial Assessment Updated by [id number]: Kaila Strickland on 09/02/19 1:35 pm * Is the patient Alert and Oriented? Yes * How many steps to enter\exit or inside your home? 0/0 * PCP Mary Coates * Pharmacy [facility] * Preadmission Environment Home with Family * ADLs Independent * Equipment Walker * List name and contact numbers for known caregivers / representatives who currently or will assist patient after discharge: Chilango Alcantar - mother - [phone] * Verbal permission to speak to the caregivers and representatives has been obtained from the patient. Yes * Community resources currently utilized None * Additional services required to return to the preadmission environment? No * Can the patient safely return to the preadmission environment? Yes * Has this patient been hospitalized within the prior 30 days at any hospital? No Coverage Notice Reviewer: [email or web address] - Alyx Graff Notice Issued Date-Time: 08/31/2019 18:00 Notice Type: Medicare Outpatient Observation Notice Notice Delivered To: Patient Relationship to Patient: Flight Nurse Name: Delivery Method: HAND - Hand Delivered Dionna Days: Prior Verbal Notification: Recipient Understood Notice: Recipient Signature: Med Rec Note Co-signed by Attending: Coverage Notice Comment: Reviewer: [id number] - Kaila Strickland Notice Issued Date-Time: 09/08/2019 12:47 Notice Type: Patient Choice Letter Notice Delivered To: Patient Relationship to Patient: Self Flight Nurse Name: Delivery Method: HAND - Hand Delivered Dionna Days: Prior Verbal Notification: Recipient Understood Notice: Yes Recipient Signature: Yes Med Rec Note Co-signed by Attending: Coverage Notice Comment: IKE for [facility] or second choice is [facility] Last DP export: 09/08/19 11:51 Patient Name: IWONA ALCANTAR Page 78497 at 1305 All edits/amendments must be made on the electronic document DICTATION DATE: 09/08/19 1305 CORRECTIONAL FACILITY PSYCHIATRIST: SUSAN 09/08/19 1305 RPT#: [id number] DC DATE: STATUS: ADM IN [facility] [address] [place] [address] END OF REPORT
[2019-09-08] MEDS ORDERED: ROBAXIN PO (15:29)
--- NOTE | 2019-09-08 15:58 | MORECARE ---
CASE MANAGEMENT DISCHARGE SUMMARY PATIENT: IWONA ALCANTAR UNIT: [id number] ADM DATE: 09/01/19 AGE: 69 : 49 SEX: M ROOM/BED: D.2229 AUTHOR: ERIK REN PHYSICIAN: REFERRING PHYSICIAN: RED NIEVES MD DATE OF SERVICE: 09/08/19 Discharge Plan Patient Name: IWONA ALCANTAR Facility: [facility]:[place] : 1950 Planned Disposition: Home Anticipated Discharge Date: Discharge Date: Expected LOS: Initial Reviewer: [email or web address] Initial Review Date: 09/02/2019 Generated: 09/08/19 4:57 pm Comments DCP- Discharge Planning Updated by [id number]: Kaila Strickland on 09/08/19 2:[address] Patient Name: IWONA ALCANTAR Encounter No: [id number] : 1950 Primary Insurance: [facility] MEDICARE SOLUTIONS Anticipated DC Date: Planned Disposition: Home External Planned Provider: : DCP follow-up note: Patient in agreement with discharge plan. No changes to plan. Taty at [facility] informed of discharging today. Case management will follow and assist as needed. Kaila Strickland DCP- Discharge Planning Updated by [id number]: Kaila Strickland on 09/08/19 12:[address] Patient is too high level for inpatient rehab per Massiel. I spoke with the patient and he is agreeable to home health which PT and OT recommend. IKE for [facility] signed. I spoke with Taty at [facility] and referral faxed. He states he has a friend that will run errands for him and does house keeping. He states she also may be able to pick him up at discharge. Her name is Kat Cartagena and phone number is [phone]. I called her and she states she will be able to transport him home and to call her at her number or if it is in the morning to call at the patient's house, she will be taking care of his mother. CM will continue to follow and assist with discharge planning/needs. DCP- Discharge Planning Updated by [id number]: Kaila Strickland on 09/08/19 8:[address] I met with patient today concerning discharge planning/needs. He states a family friend is taking care of his mother while he is in the hospital. He states Dr. Berg wants him to get rehab. I discussed the availability of inpatient rehab vs SNF. He understands he will need authorization from insurance prior to admission to rehab. He states he would like to stay here at [facility] for inpatient rehab. I have placed an order for PT/OT to continue to see him and a rehab screen. CM will continue to follow and assist with discharge planning/needs. DCP- Discharge Planning Updated by [id number]: Kaila Strickland on 09/02/19 12:[address] Patient Name: IWONA ALCANTAR Admission Status: ER Accout number: [id number] Admission Date: 09-01-2019 : 1950 Admission Diagnosis: Attending: RED NIEVES Current LOS: 1 Anticipated DC Date: Planned Disposition: Home Primary Insurance: [facility] MEDICARE SOLUTIONS Discharge Planning Comments: CM met with patient to complete initial dc planning assessment. CM educated patient on the CM role and verbal consent given by patient to complete assessment. Patient lives at home with his mother. States he plans to return home on discharge and feels this is a safe discharge. States he will need to take a taxi to [facility] [address] to get his car. States he has money for a taxi. I discussed the availability of inpatient rehab, SNF, home health and additional DME if needed and he declines needs at this time. CM will continue to follow and assist with discharge planning/needs. Hr Internship: Kaila Strickland DCPIA - Discharge Planning Initial Assessment Updated by [email or web address]: Kaila Strickland on 09/02/19 1:35 pm * Is the patient Alert and Oriented? Yes * How many steps to enter\exit or inside your home? 0/0 * PCP Mary Coates * Pharmacy [facility] * Preadmission Environment Home with Family * ADLs Independent * Equipment Walker * List name and contact numbers for known caregivers / representatives who currently or will assist patient after discharge: Chilango Alcantar - mother - [phone] * Verbal permission to speak to the caregivers and representatives has been obtained from the patient. Yes * Community resources currently utilized None * Additional services required to return to the preadmission environment? No * Can the patient safely return to the preadmission environment? Yes * Has this patient been hospitalized within the prior 30 days at any hospital? No Coverage Notice Reviewer: [id number] Raisa Graff Notice Issued Date-Time: 08/31/2019 18:00 Notice Type: Medicare Outpatient Observation Notice Notice Delivered To: Patient Relationship to Patient: Gasoline Engine Inspector Name: Delivery Method: HAND - Hand Delivered Dionna Days: Prior Verbal Notification: Recipient Understood Notice: Recipient Signature: Med Rec Note Co-signed by Attending: Coverage Notice Comment: Reviewer: [id number] Strickland Notice Issued Date-Time: 09/08/2019 12:47 Notice Type: Patient Choice Letter Notice Delivered To: Patient Relationship to Patient: Self Gasoline Engine Inspector Name: Delivery Method: HAND - Hand Delivered Dionna Days: Prior Verbal Notification: Recipient Understood Notice: Yes Recipient Signature: Yes Med Rec Note Co-signed by Attending: Coverage Notice Comment: IKE for [place] [facility] or second choice is [facility] Reviewer: [email or web address] Raisa Strickland Notice Issued Date-Time: 09/08/2019 15:44 Notice Type: IM Discharge Notice Notice Delivered To: Patient Relationship to Patient: Self Gasoline Engine Inspector Name: Delivery Method: HAND - Hand Delivered Dionna Days: Prior Verbal Notification: Recipient Understood Notice: Yes Recipient Signature: Yes Med Rec Note Co-signed by Attending: Coverage Notice Comment: IMM explained, signed, given, copy placed in MR Last DP export: 09/08/19 12:05 Patient Name: IWONA ALCANTAR Page [id number] at 1558 All edits/amendments must be made on the electronic document DICTATION DATE: 09/08/191556 DIRECT CHILL CASTER: SUSAN 09/08/191556 RPT#: [id number] DC DATE: STATUS: ADM IN [facility] [address] [place] [address] END OF REPORT
[2019-09-08] MEDS ORDERED: PREDNISONE10 MG PO (16:08)
--- NOTE | 2019-09-08 17:12 | NUR ---
IV DCD WITH CATH TIP INTACT.DISCHARGE INSTRUCTIONS,STATES UNDERSTANDING. CALL TO LATOSHA GARNER [phone] FOR [facility]
--- NOTE | 2019-09-08 19:44 | NUR ---
OT NOTE: PT COMPLETED ADL MOB WITH MIN A WITH GAIT BELT. PT COMPLETED SUPINE TO SIT WITH MIN A. PT COMPLETED UB HYGIENE TASKS WITH SBA/CGA. THANK YOU, SHARMAINE PALMER
--- NOTE | 2019-09-10 06:53 | MORECARE ---
CASE MANAGEMENT DISCHARGE SUMMARY PATIENT: IWONA ALCANTAR UNIT: [id number] ADM DATE: 09/01/19 AGE: 69 : 49 SEX: M ROOM/BED: D.2229 AUTHOR: MIKALDOC PHYSICIAN: REFERRING PHYSICIAN: RED NIEVES MD DATE OF SERVICE: 09/10/19 Discharge Plan Patient Name: IWONA ALCANTAR Facility: [facility]:[place] : 1950 Planned Disposition: Home Anticipated Discharge Date: Discharge Date: 09/08/2019 Expected LOS: 0 Initial Reviewer: [email or web address] Initial Review Date: 09/02/2019 Generated: 09/10/19 7:53 am Comments DCP- Discharge Planning Updated by [id number]: Kaila Strickland on 09/08/19 2:[address] Patient Name: IWONA ALCANTAR Encounter No: [id number] : 1950 Primary Insurance: [facility] MEDICARE SOLUTIONS Anticipated DC Date: Planned Disposition: Home External Planned Provider: : DCP follow-up note: Patient in agreement with discharge plan. No changes to plan. Taty at [facility] informed of discharging today. Case management will follow and assist as needed. Kaila Strickland DCP- Discharge Planning Updated by [id number]: Kaila Strickland on 09/08/19 12:[address] Patient is too high level for inpatient rehab per Massiel. I spoke with the patient and he is agreeable to home health which PT and OT recommend. IKE for [facility] signed. I spoke with Taty at [facility] and referral faxed. He states he has a friend that will run errands for him and does house keeping. He states she also may be able to pick him up at discharge. Her name is Kat Cartagena and phone number is [phone]. I called her and she states she will be able to transport him home and to call her at her number or if it is in the morning to call at the patient's house, she will be taking care of his mother. CM will continue to follow and assist with discharge planning/needs. DCP- Discharge Planning Updated by [id number]: Kaila Strickland on 09/08/19 8:[address] I met with patient today concerning discharge planning/needs. He states a family friend is taking care of his mother while he is in the hospital. He states Dr. Berg wants him to get rehab. I discussed the availability of inpatient rehab vs SNF. He understands he will need authorization from insurance prior to admission to rehab. He states he would like to stay here at [facility] for inpatient rehab. I have placed an order for PT/OT to continue to see him and a rehab screen. CM will continue to follow and assist with discharge planning/needs. DCP- Discharge Planning Updated by [id number]: Kaila Em on 09/02/19 12:[address] Patient Name: IWONA ALCANTAR Admission Status: ER Accout number: [id number] Admission Date: 09-01-2019 : 1950 Admission Diagnosis: Attending: RED NIEVES Current LOS: 1 Anticipated DC Date: Planned Disposition: Home Primary Insurance: [facility] MEDICARE SOLUTIONS Discharge Planning Comments: CM met with patient to complete initial dc planning assessment. CM educated patient on the CM role and verbal consent given by patient to complete assessment. Patient lives at home with his mother. States he plans to return home on discharge and feels this is a safe discharge. States he will need to take a taxi to [facility] [address] to get his car. States he has money for a taxi. I discussed the availability of inpatient rehab, SNF, home health and additional DME if needed and he declines needs at this time. CM will continue to follow and assist with discharge planning/needs. Transmission Specialist: Kaila Strickland DCPIA - Discharge Planning Initial Assessment Updated by [id number]: aKila Strickland on 09/02/19 1:35 pm * Is the patient Alert and Oriented? Yes * How many steps to enter\exit or inside your home? 0/0 * PCP Mary Coates * Pharmacy [facility] on [address] * Preadmission Environment Home with Family * ADLs Independent * Equipment Walker * List name and contact numbers for known caregivers / representatives who currently or will assist patient after discharge: Chilango Alcantar - mother - [phone] * Verbal permission to speak to the caregivers and representatives has been obtained from the patient. Yes * Community resources currently utilized None * Additional services required to return to the preadmission environment? No * Can the patient safely return to the preadmission environment? Yes * Has this patient been hospitalized within the prior 30 days at any hospital? No Coverage Notice Reviewer: [id number] Raisa Graff Notice Issued Date-Time: 08/31/2019 18:00 Notice Type: Medicare Outpatient Observation Notice Notice Delivered To: Patient Relationship to Patient: Line Installer Trolley Name: Delivery Method: HAND - Hand Delivered Dionna Days: Prior Verbal Notification: Recipient Understood Notice: Recipient Signature: Med Rec Note Co-signed by Attending: Coverage Notice Comment: Reviewer: [id number] Strickland Notice Issued Date-Time: 09/08/2019 12:47 Notice Type: Patient Choice Letter Notice Delivered To: Patient Relationship to Patient: Self Line Installer Trolley Name: Delivery Method: HAND - Hand Delivered Dionna Days: Prior Verbal Notification: Recipient Understood Notice: Yes Recipient Signature: Yes Med Rec Note Co-signed by Attending: Coverage Notice Comment: IKE for [place] [facility] or second choice is [facility] Reviewer: [id number] Strickland Notice Issued Date-Time: 09/08/2019 15:44 Notice Type: IM Discharge Notice Notice Delivered To: Patient Relationship to Patient: Self Line Installer Trolley Name: Delivery Method: HAND - Hand Delivered Dionna Days: Prior Verbal Notification: Recipient Understood Notice: Yes Recipient Signature: Yes Med Rec Note Co-signed by Attending: Coverage Notice Comment: IMM explained, signed, given, copy placed in MR Last DP export: 09/08/19 2:58 Patient Name: IWONA ALCANTAR Page 74639 at 0653 All edits/amendments must be made on the electronic document DICTATION DATE: 09/10/19652 RAILROAD DETECTIVE: SUSAN 09/10/19652 RPT#: [id number] DC DATE:09/08/19 STATUS: DIS IN [facility] [address] [place] [address] END OF REPORT
--- NOTE | 2019-09-25 09:47 | OP ---
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 SURGEON: Val Bui MD PROCEDURE: Anterior cervical discectomy and fusion at C4-C5 and C5-C6 with Zavation anterior cervical plate and screws, PEEK interbody cages, Lilian bone allograft with bone stem cells. DESCRIPTION AND TECHNIQUE: After induction of general endotracheal anesthesia, the patient was positioned supine on the operating table. Neck was prepped and draped in usual sterile fashion. Fluoroscopic x-ray and Dillon dissector localized the C4-C5 interspace. After infiltration of skin with 1:100,000 epinephrine and 1% lidocaine, a transverse skin incision was carried out from the midline to the sternocleidomastoid muscle. The platysma was divided with #15 blade. Using blunt and sharp dissection with Metzenbaum scissors, I proceeded in avascular plane medial to the carotid sheath. The C4-C5 and C5-C6 interspace was identified with fluoroscopic x-ray and a spinal needle. The longus colli muscles were elevated from C4, C5, and C6. Osteophytes removed anteriorly with Adson rongeurs. Portal distracting pins were placed in the bodies of C4, C5, and C6. The C4-C5 and C5-C6 interspaces were incised with a #11 blade. Pituitary rongeurs and curettes were used to prepare the endplates at each level at C4-C5 and C5-C6 into the disc space and disc material. Osteophytes removed with the Midas Scott drill under microscopic illumination at each level. The posterior longitudinal was removed at C4-C5 and C5-C6 with 2 mm Cloward rongeurs. Following this, the central dura as well as the nerve roots were decompressed well. Peek interbody cages were placed in disc spaces at C4-C5 and C5-C6. Prior to this, they were filled with Lilian bone allograft with bone stem cells. Zavation anterior cervical plate and screws was used to span the C4-C5 and C5-C6 interspaces. Locking cams were tightened down over the screw heads. Good position of the hardware was confirmed with fluoroscopic x-ray. Meticulous hemostasis was maintained throughout the wound. Wound was irrigated with copious amounts of Ancef irrigant solution. The platysma and subdermal layer closed with interrupted 3-0 Vicryl suture. The skin was reapproximated with Steri-Strips and benzoin. A sterile dressing was applied to the wound. The patient was awakened in good condition, taken to recovery. All counts were reported as correct. Estimated blood loss was minimal. TRANSINT:[id number] Voice Confirmation ID: [id number] DOCUMENT ID: [id number] OPERATIVE REPORT [id number] IWONA BIRCH, VAL CARIAS at 0947 CC: [id number] DICTATION DATE: 09/10/1933 SEARCH ENGINE OPTIMIZATION MANAGER: 09/10/19 0726 DIS IN 09/08/19 [id number] [place] [address]
== END 2019-09-08 17:14 | disposition home health service (06) | DRG 471 ==
LOC: D.ER 14:15 → D.MS 17:50 → OBSVTIME 17:50 → D.MS 17:50 → D.SDCHOLD 09-02 13:25 → D.ICU 09-06 11:03 → D.MS 09-07 08:22
PROVIDERS: Emergency Medicine; Neurological Surgery; ADMIT Internal Medicine Nephrology; ATTEND Internal Medicine Nephrology
PROC: 0RB30ZZ Excision of Cervical Vertebral Disc, Open Approach (ICD-10-PCS; 2019-09-06)
PROC: 0RG20A0 Fusion of 2 or more Cervical Vertebral Joints with Interbody Fusion Device, Anterior Approach, Anterior Column, Open Approach (ICD-10-PCS; principal; 2019-09-06 06:53)
DX: M48.02 Spinal stenosis, cervical region (principal); G93.41 Metabolic encephalopathy; J96.01 Acute respiratory failure with hypoxia; R53.2 Functional quadriplegia; G91.9 Hydrocephalus, unspecified; G99.2 Myelopathy in diseases classified elsewhere; E11.65 Type 2 diabetes mellitus with hyperglycemia; I25.10 Atherosclerotic heart disease of native coronary artery without angina pectoris; I10 Essential (primary) hypertension; E78.5 Hyperlipidemia, unspecified; M19.90 Unspecified osteoarthritis, unspecified site; F41.8 Other specified anxiety disorders; F03.90 Unspecified dementia, unspecified severity, without behavioral disturbance, psychotic disturbance, mood disturbance, and anxiety; N40.0 Benign prostatic hyperplasia without lower urinary tract symptoms; Z91.81 History of falling

== ENCOUNTER 2019-09-24 02:04 | Emergency (ER) | payer MEDICARE ==
[~2019-09-24] VITALS: Ht 175.3 cm; Wt 75.0 kg
[~2019-09-24 02:04] MED LIST changes: +PREDNISONE10 MG PO; +ROBAXIN PO
[2019-09-24 02:05] VITALS: Ht 175.3 cm; Wt 75.0 kg
[2019-09-24 03:28] LABS: HEMATOCRIT 33.9 % (42.0-54.0); HEMOGLOBIN 11.2 g/dL (13.5-17.5); LYMPHOCYTES 24.4 % (15-50); MCH 29.7 pg (26.0-34.0); MCV 89.9 fL (80.0-100.0); MEAN PLATELET VOLUME 9.7 fL (7.4-10.4); NEUTROPHILS 62.8 % (40-80); RBC 3.77 10x6/uL (4.20-6.10); RDW 13.5 % (11.5-14.5); WBC 5.4 10x3/uL (4.8-10.8)
[2019-09-24 03:31] LABS: PLATELET COUNT 178 10x3/uL (130-400)
[2019-09-24 03:33] LABS: CALC OSMOLALITY 289 mosm/kg (275-300); CALCIUM 8.4 mg/dL (8.5-10.1); CHLORIDE - SERUM 106 mmol/L (98-107); CREATININE - SERUM 1.4 mg/dL (0.6-1.3); GLUCOSE 113 mg/dL (74-106); SODIUM 143 mmol/L (136-145); UREA NITROGEN 25 mg/dL (7-18); eGFR NON AFRICAN AMERICAN 53 mL/min (90-120)
[2019-09-24 03:50] LABS: ALBUMIN 2.9 g/dL (3.4-5.0); ALKALINE PHOSPHATASE 73 U/L (46-116); ALT (SGPT) 41 U/L (10-68); BILIRUBIN - TOTAL 0.33 mg/dL (0.2-1.3); CREATINE KINASE 77 UL (21-232); LIPASE 90 U/L (73-393); MAGNESIUM - SERUM 2.3 mg/dL (1.8-2.4); PRO BNP 968 pg/mL (0-125); PROTEIN - SERUM 6.5 g/dL (6.4-8.2); TROPONIN-I < 0.017 ng/mL (0.000-0.060)
[2019-09-24 04:10] LABS: APPEARANCE CLEAR (CLEAR); BILIRUBIN NEGATIVE (NEGATIVE); COLOR YELLOW (YELLOW); GLUCOSE 100 mg/dL (NEGATIVE); KETONE NEGATIVE (NEGATIVE); NITRITE NEGATIVE (NEGATIVE); PROTEIN 1+ mg/dL (NEGATIVE); UROBILINOGEN NORMAL (NORMAL)
[2019-09-24 04:18] LABS: UDS - AMPHET NEGATIVE QUAL (NEGATIVE); UDS - BARB NEGATIVE QUAL (NEGATIVE); UDS - BENZO NEGATIVE QUAL (NEGATIVE); UDS - COCAINE NEGATIVE QUAL (NEGATIVE); UDS - OPIATE NEGATIVE QUAL (NEGATIVE); UDS - PCP NEGATIVE QUAL (NEGATIVE); UDS - THC NEGATIVE QUAL (NEGATIVE)
[2019-09-24] MEDS ORDERED: CHRONULAC30 ML PO (06:59)
[2019-09-24 07:18] VITALS: BP 168/83
== END 2019-09-24 07:18 | disposition home or self-care (01) ==
LOC: D.ER 02:04
PROVIDERS: Family Medicine
DX: K59.00 Constipation, unspecified (principal); R53.1 Weakness; E11.9 Type 2 diabetes mellitus without complications; Z79.4 Long term (current) use of insulin

== ENCOUNTER → 2020-02-29 07:21 | Outpatient (CLI) | payer MEDICARE ==
[2019-09-24 02:05] VITALS: BMI 24.4
[~2020-02-29 07:21] MED LIST changes: +CHRONULAC30 ML PO
--- NOTE | 2020-03-02 08:24 | EC ---
PATIENT:IWONA BIRCH DATE OF SERVICE: 02/29/20 SEX: M MEDICAL RECORD: [id number] DATE OF : 48 LOCATION:[facility] AGE OF PATIENT: 70 ADMISSION DATE: 02/29/20 REFERRING PHYSICIAN: INTERPRETING PHYSICIAN: FRANCO PARR MD ECHOCARDIOGRAM REPORT ECHO CHARGES 4 ECHO COMPLETE Date: 02/29/20 CLINICAL DIAGNOSIS: HTN HEART MURMUR ECHOCARDIOGRAPHIC MEASUREMENTS (adult normal given) AC root (d.<3.7cm) 3.6 cm LV Septum d (<1.2 cm> 1.4 cm Valve Excursion 1.8 cm LV Septum (systole) 1.7 cm Left Atria (s.<4.0cm> 4.0 cm LVPW d(<1.2cm) 1.5 cm RV (d.<2.3cm) 4.1 cm LVPW (sytole) 1.9 cm LV diastole(<5.6CM) 5.2 cm MV E-F(>70mm/sec) cm LV systole 3.1 cm LVOT Diameter 1.9 cm MV exc.(>10mm) 1.1 cm Est.ejection fraction (50-75%) % DOPPLER: LVIT cm/sec A 82.0 cm/sec E 52.0 cm/sec LA cm/sec RVSP 28 mmHg LVOT 72 cm/sec AOP1/2T m/s Asc. Ao 107 cm/sec RVOT 68 cm/sec RA cm/sec PA 115 cm/sec AV Gradient Peak 4.62 mmHg AV Mean 2.42 mmHg AV Area cm MV Gradient Peak mmHg MV Mean mmHg MV Area cm COMMENTS: Steam Conditioner Operator: 2 DAVE MARTINEZ Fleet Assistant: 3 Dr. Mcallister TAPE# PACS Pericardial Effusion N DATE OF SERVICE: Adequate 2D, color flow imaging, spectral Doppler, and M-Mode. LVH is present. LV internal dimensions are normal. Wall motion is normal. EF is greater than or equal to 55%. Aortic valve is tricuspid. No evidence of stenosis by Doppler interrogation. Left atrium is normal at 4.0 cm. Mitral valve shows no prolapse. Trace MR. Right-sided chambers are grossly normal. Mild TR. ECHOCARDIOGRAM REPORT [id number] IWONA BIRCH TRANSINT:[id number] Voice Confirmation ID: [id number] DOCUMENT ID: [id number] FRANCO PARR MD at 0824 CC: [id number] DICTATION DATE: 03/01/20 0843 MASTER AT ARMS: 03/01/20 0929 DEP CLI 02/29/20 [id number] [place] [address]
== END | disposition home or self-care (01) ==
LOC: D.HCCECHO 07:21
PROVIDERS: ATTEND Internal Medicine Cardiovascular Disease
DX: I25.119 Atherosclerotic heart disease of native coronary artery with unspecified angina pectoris (principal); I10 Essential (primary) hypertension; R09.89 Other specified symptoms and signs involving the circulatory and respiratory systems

== ENCOUNTER 2020-12-19 19:33 | Emergency (ER) | payer MEDICARE ==
[~2020-12-19] VITALS: Ht 175.3 cm; Wt 75.0 kg
[~2020-12-19 19:33] MED LIST changes: +ACETAMINOPHEN325 MG PO; +ACETAMINOPHEN500 M1 PO; +BUPROPION HCL200 M1 PO; +COLACE100 MG PO; +CYCLOBENZAPRINE10 MG PO; +FLORAJEN3 CAPS460 MG PO; +HYDROCODON-ACE1 EAC7 PO; +LANTUS INS100 UNITS/ SC; +LEVOFLOXACIN500 MG PO; +MEDROL DOSE PACK4 MG PO; +MIRALAX17 GM PO; +PHENAZOPYRIDIN100 MG PO; +PRAVACHOL20 MG PO; +PROSCAR5 MG PO; +PROTONIX40 MG PO; +WELLBUTRIN XL150 M1 PO; +ZOFRAN4 MG PO
[2020-12-19 19:38] VITALS: BP 135/70; Ht 175.3 cm; Wt 75.0 kg
[2020-12-19] MEDS ORDERED: PROZAC20 MG PO (19:49)
[2020-12-19] MEDS ORDERED: BUPROPION XL150 MG PO (19:49)
== END 2020-12-19 21:03 | disposition home or self-care (01) ==
LOC: D.ER 19:33
DX: R45.851 Suicidal ideations (principal); R45.4 Irritability and anger; E11.9 Type 2 diabetes mellitus without complications; Z79.4 Long term (current) use of insulin; Z95.5 Presence of coronary angioplasty implant and graft; F32.9 Major depressive disorder, single episode, unspecified; M54.9 Dorsalgia, unspecified

== ENCOUNTER 2021-03-04 12:06 | Observation (INO) | payer MEDICARE ==
[~2021-03-04] VITALS: Ht 175.3 cm; Wt 74.8 kg
[~2021-03-04 12:06] MED LIST changes: +BUPROPION XL150 MG PO
[2021-03-04 12:57] VITALS: Ht 175.3 cm; Wt 74.8 kg
[2021-03-04 13:31] LABS: BASOPHILS 0.3 % (0-2); EOSINOPHILS 9.6 % (0-7); HEMOGLOBIN 10.6 g/dL (13.5-17.5); IMMATURE GRANULOCYTES 0.3 % (0-5); LYMPHOCYTE ABS# 0.64 10x3/uL (1.32-3.57); LYMPHOCYTES 6.8 % (15-50); MCH 27.7 pg (26.0-34.0); MCHC 31.2 g/dL (31.0-37.0); MCV 88.8 fL (80.0-100.0); MEAN PLATELET VOLUME 10.5 fL (7.4-10.4); MONOCYTES 10.7 % (2-11); NEUTROPHILS 72.3 % (40-80); PLATELET COUNT 311 10x3/uL (130-400); RBC 3.83 10x6/uL (4.20-6.10); RDW 14.4 % (11.5-14.5); WBC 9.4 10x3/uL (4.8-10.8)
[2021-03-04 13:37] LABS: APTT 27.2 SECONDS (22.8-39.4); INR 1.22 (0.85-1.17); PROTIME 14.3 SECONDS (11.6-15.0)
[2021-03-04 13:39] LABS: CALC OSMOLALITY 291 mosm/kg (275-300); CALCIUM 9.1 mg/dL (8.5-10.1); CARBON DIOXIDE 31.4 mmol/L (21.0-32.0); CHLORIDE - SERUM 103 mmol/L (98-107); CREATININE - SERUM 1.9 mg/dL (0.6-1.3); POTASSIUM - SERUM 4.5 mmol/L (3.5-5.1); SODIUM 142 mmol/L (136-145); UREA NITROGEN 36 mg/dL (7-18); eGFR NON AFRICAN AMERICAN 37 mL/min (90-120)
[2021-03-04 13:44] LABS: GLUCOSE 115 mg/dL (74-106)
--- NOTE | 2021-03-04 13:52 | NUR ---
RESPIRATORY CALLED AT THIS TIME FOR BREATHING TREATMENT AND ABG'S
[2021-03-04 13:56] LABS: ALBUMIN 3.1 g/dL (3.4-5.0); ALKALINE PHOSPHATASE 99 U/L (30-120); ALT (SGPT) 23 U/L (10-68); BILIRUBIN - TOTAL 0.23 mg/dL (0.2-1.3); CKMB 0.9 U/L (0.0-3.6); CREATINE KINASE 56 UL (21-232); PRO BNP 1261 pg/mL (0-125); PROTEIN - SERUM 7.2 g/dL (6.4-8.2)
[2021-03-04 14:00] LABS: TROPONIN-I < 0.017 ng/mL (0.000-0.060)
[2021-03-04 14:30] VITALS: BP 147/77
[2021-03-04 15:30] VITALS: BP 154/75
--- NOTE | 2021-03-04 15:30 | NUR ---
PT RETURN FROM SCAN, MONIORS AND IV FLUIDS RECONNECTED AT THIS TIME
[2021-03-04 15:39] LABS: BILIRUBIN NEGATIVE (NEGATIVE); KETONE NEGATIVE (NEGATIVE); NITRITE NEGATIVE (NEGATIVE); SQUAMOUS EPITHELIAL 0-5 HPF (0-4); UROBILINOGEN NORMAL mg/dL (< 2); WHITE CELLS - URINE >50 HPF (0-1)
[2021-03-04 15:40] LABS: BACTERIA MANY HPF (NONE SEEN)
[2021-03-04 16:30] VITALS: BP 164/83
--- NOTE | 2021-03-04 18:21 | NUR ---
PT BLOOD GLUCOSE 69, NO SYMPTOMS, PT REQUESTED SANDWICH TRAY, SANDWICH TRAY, SODA, AND PUDDING PROVIDED, PT IS SITTING UP EATING AT THIS TIME.
--- NOTE | 2021-03-04 18:43 | NUR ---
REPORT HAS BEEN CALED ON PT TO ALEX RN AWAITING TRANPORT TO ROOM.
--- NOTE | 2021-03-04 19:05 | NUR ---
PT TO ROOM 2135 VIA WHEELCHAIR ACCOMPANIED BY HOSPITAL STAFF.
[2021-03-04 20:32] VITALS: BP 118/69
[2021-03-04 21:46] VITALS: BP 104/62
--- NOTE | 2021-03-05 00:38 | NUR ---
CARLIN, AAOX4. DURING ADMISSION PROCESS, PT REQUESTED TO GO HOME, STATES, "I FEEL MUCH BETTER THAN I DID THIS MORNING AND THESE PAST FEW DAYS." THIS NURSE EXPLAINED RISKS OF LEAVING AMA AND BENEFITS OF STAYING INPATIENT, PT VERBALIZED UNDERSTANDING. ENCOURAGED PT TO ARRANGE APPOINTMENT WITH HIS PCP, DR. JAJA LEOS. SPOKE WITH BARBY BUTT APRN, REGARDING PT REQUEST, AMA FORM SIGNED AND WITNESSED. PIV TO LEFT HAND DC'D, TIP INTACT, TOLERATED WELL. PT OFF FLOOR.
== END 2021-03-05 00:49 | disposition left against medical advice (07) ==
LOC: D.ER 12:06 → D.M2 14:33 → OBSVTIME 14:33 → D.M2 03-05 00:49
PROVIDERS: Family Medicine; ADMIT Emergency Medicine; ATTEND Emergency Medicine
DX: R06.09 Other forms of dyspnea (principal); G72.81 Critical illness myopathy; E86.0 Dehydration; N17.9 Acute kidney failure, unspecified; E11.65 Type 2 diabetes mellitus with hyperglycemia; F32.9 Major depressive disorder, single episode, unspecified; G62.9 Polyneuropathy, unspecified; Z53.29 Procedure and treatment not carried out because of patient's decision for other reasons; Z79.4 Long term (current) use of insulin

== ENCOUNTER 2021-03-19 10:48 | Emergency (ER) | payer MEDICARE ==
[~2021-03-19] VITALS: Ht 175.3 cm; Wt 75.0 kg
[2021-03-19 11:03] VITALS: Ht 175.3 cm; Wt 75.0 kg
[2021-03-19 11:45] LABS: BASOPHILS 0.6 % (0-2); EOSINOPHILS 8.2 % (0-7); HEMATOCRIT 30.1 % (42.0-54.0); HEMOGLOBIN 9.8 g/dL (13.5-17.5); LYMPHOCYTES 7.4 % (15-50); MCH 27.6 pg (26.0-34.0); MCHC 32.5 g/dL (31.0-37.0); MCV 84.7 fL (80.0-100.0); MEAN PLATELET VOLUME 7.7 fL (7.4-10.4); MONOCYTES 7.6 % (2-11); NEUTROPHILS 76.2 % (40-80); PLATELET COUNT 318 10x3/uL (130-400); RBC 3.56 10x6/uL (4.20-6.10); RDW 15.1 % (11.5-14.5)
[2021-03-19 11:53] LABS: CALC OSMOLALITY 284 mosm/kg (275-300); CALCIUM 8.4 mg/dL (8.5-10.1); CHLORIDE - SERUM 104 mmol/L (98-107); CREATININE - SERUM 1.4 mg/dL (0.6-1.3); GLUCOSE 135 mg/dL (74-106); INR 1.29 (0.85-1.17); PROTIME 14.9 SECONDS (11.6-15.0); SODIUM 140 mmol/L (136-145); UREA NITROGEN 25 mg/dL (7-18); eGFR NON AFRICAN AMERICAN 53 mL/min (90-120)
[2021-03-19 11:54] LABS: D-DIMER-QUANTITATIVE 0.93 ug/mLFEU (0.20-0.54)
[2021-03-19 12:11] LABS: ALBUMIN 2.9 g/dL (3.4-5.0); ALKALINE PHOSPHATASE 91 U/L (30-120); ALT (SGPT) 24 U/L (10-68); BILIRUBIN - TOTAL 0.37 mg/dL (0.2-1.3); CKMB 0.5 U/L (0.0-3.6); CREATINE KINASE 20 UL (21-232); PRO BNP 2330 pg/mL (0-125); PROTEIN - SERUM 6.9 g/dL (6.4-8.2); TROPONIN-I < 0.017 ng/mL (0.000-0.060)
[2021-03-19 13:26] VITALS: BP 152/69
[2021-03-19] MEDS ORDERED: FUROSEMIDE20 MG PO (13:49)
== END 2021-03-19 14:15 | disposition home or self-care (01) ==
LOC: D.ER 10:48
PROVIDERS: Family Medicine
DX: R06.09 Other forms of dyspnea (principal); R62.7 Adult failure to thrive; R06.02 Shortness of breath; R79.89 Other specified abnormal findings of blood chemistry; E11.40 Type 2 diabetes mellitus with diabetic neuropathy, unspecified; Z79.4 Long term (current) use of insulin; R11.0 Nausea

== ENCOUNTER 2021-03-29 07:23 | Inpatient (IN) | payer MEDICARE ==
[~2021-03-29] VITALS: Ht 175.3 cm; Wt 67.8 kg
[~2021-03-29 07:23] MED LIST changes: +FUROSEMIDE20 MG PO
[2021-03-29 08:17] LABS: BASOPHILS 0.4 % (0-2); EOSINOPHILS 3.3 % (0-7); HEMATOCRIT 30.5 % (42.0-54.0); HEMOGLOBIN 9.8 g/dL (13.5-17.5); LYMPHOCYTES 5.7 % (15-50); MCH 27.1 pg (26.0-34.0); MCHC 32.2 g/dL (31.0-37.0); MCV 84.1 fL (80.0-100.0); MEAN PLATELET VOLUME 7.9 fL (7.4-10.4); MONOCYTES 7.7 % (2-11); NEUTROPHILS 82.9 % (40-80); PLATELET COUNT 312 10x3/uL (130-400); RBC 3.62 10x6/uL (4.20-6.10); RDW 15.7 % (11.5-14.5); WBC 10.7 10x3/uL (4.8-10.8)
--- NOTE | 2021-03-29 08:19 | NUR ---
PT STATES SYMPTOMS STARTED UP 2 WEEKS AGO.
[2021-03-29 08:28] LABS: CALC OSMOLALITY 282 mosm/kg (275-300); CALCIUM 8.3 mg/dL (8.5-10.1); CARBON DIOXIDE 29.9 mmol/L (21.0-32.0); CHLORIDE - SERUM 103 mmol/L (98-107); CREATININE - SERUM 1.2 mg/dL (0.6-1.3); POTASSIUM - SERUM 3.2 mmol/L (3.5-5.1); SODIUM 141 mmol/L (136-145); UREA NITROGEN 20 mg/dL (7-18); eGFR NON AFRICAN AMERICAN 63 mL/min (90-120)
[2021-03-29 08:30] LABS: GLUCOSE 87 mg/dL (74-106)
[2021-03-29 08:44] LABS: ALBUMIN 2.5 g/dL (3.4-5.0); ALKALINE PHOSPHATASE 86 U/L (30-120); ALT (SGPT) 29 U/L (10-68); BILIRUBIN - TOTAL 0.38 mg/dL (0.2-1.3); CKMB 0.7 U/L (0.0-3.6); CREATINE KINASE 29 UL (21-232); PRO BNP 3368 pg/mL (0-125); PROTEIN - SERUM 6.5 g/dL (6.4-8.2)
[2021-03-29 08:45] LABS: TROPONIN-I < 0.017 ng/mL (0.000-0.060)
[2021-03-29 08:52] LABS: INR 1.28 (0.85-1.17); PROTIME 14.8 SECONDS (11.6-15.0)
[2021-03-29 08:53] LABS: SARS-CoV-2 ANTIGEN NEGATIVE- SARS-COV-2 (NEGATIVE)
[2021-03-29 08:53] LABS: D-DIMER-QUANTITATIVE 1.14 ug/mLFEU (0.20-0.54)
[2021-03-29 09:25] LABS: BILIRUBIN NEGATIVE (NEGATIVE); KETONE NEGATIVE (NEGATIVE); NITRITE NEGATIVE (NEGATIVE); UROBILINOGEN NORMAL mg/dL (< 2)
[2021-03-29 09:26] LABS: BACTERIA FEW HPF (NONE SEEN); SQUAMOUS EPITHELIAL 0-5 HPF (0-4)
[2021-03-29 09:34] LABS: APTT 37.9 SECONDS (22.8-39.4)
[2021-03-29 11:22] LABS: CREATINE KINASE 27 UL (21-232)
[2021-03-29 11:25] LABS: TROPONIN-I < 0.017 ng/mL (0.000-0.060)
[2021-03-29 11:27] VITALS: BP 162/61
--- NOTE | 2021-03-29 11:53 | NUR ---
PT ARRIVED TO UNIT ACCOMPANIED BY HOSPITAL STAFF. SETTLED INTO ROOM. NO DISTRESS NOTED. CLIR. BED IN LOWEST POSITION. SIDE RAILS X2
--- NOTE | 2021-03-29 12:15 | NUR ---
PT ADMITTED TO SUICIDAL THOUGHTS. CHARGE NURSE, PING HOWARD, AND RANGE SCIENTIST NOTIFIED. DETENTION TO COME AND EVALUATE
[2021-03-29 12:45] VITALS: BP 162/61; BMI 22.9
[2021-03-29 15:16] VITALS: BP 131/50
[2021-03-29 17:48] LABS: CKMB 0.5 U/L (0.0-3.6); CREATINE KINASE 28 UL (21-232); TROPONIN-I < 0.017 ng/mL (0.000-0.060)
--- NOTE | 2021-03-29 19:00 | NUR ---
REPORT RECEIVED. PATIENT IS AAOX3, SITTING UP IN BED. NO S/S OF DISTRESS OBSERVED, RR EVEN AND UNLABORED ON 3L O2 VIA NC. PIV TO RT FA, PATENT, INFUSING NS @ 50ML/HR. PATIENT DENIES NEEDS AT THIS TIME. CL IN REACH, BED LOCKED AND LOWERED. COVID PRECAUTIONS FOLLWED. WILL CPOC.
[2021-03-29 20:50] VITALS: BP 151/61
[2021-03-29 23:41] LABS: CKMB 0.5 U/L (0.0-3.6); CREATINE KINASE 26 UL (21-232)
[2021-03-29 23:45] LABS: TROPONIN-I < 0.017 ng/mL (0.000-0.060)
[2021-03-30 00:23] VITALS: BP 141/66
--- NOTE | 2021-03-30 00:52 | NUR ---
PATIENT C/O HEADACHE. ADMINISTERED PRN TYLENOL PER ORDERS.
--- NOTE | 2021-03-30 01:37 | NUR ---
I have reviewed this patient and I concur with the Shift Assessment completed by the Licensed Practical Nurse today this shift.
[2021-03-30 04:58] VITALS: BP 158/70
[2021-03-30 06:34] LABS: BASOPHILS 0.5 % (0-2); EOSINOPHILS 2.6 % (0-7); HEMATOCRIT 29.6 % (42.0-54.0); HEMOGLOBIN 9.6 g/dL (13.5-17.5); LYMPHOCYTES 5.9 % (15-50); MCH 27.1 pg (26.0-34.0); MCHC 32.5 g/dL (31.0-37.0); MCV 83.6 fL (80.0-100.0); MEAN PLATELET VOLUME 7.7 fL (7.4-10.4); MONOCYTES 8.4 % (2-11); NEUTROPHILS 82.6 % (40-80); PLATELET COUNT 373 10x3/uL (130-400); RBC 3.54 10x6/uL (4.20-6.10); RDW 15.2 % (11.5-14.5); WBC 11.7 10x3/uL (4.8-10.8)
[2021-03-30 07:23] LABS: ALBUMIN 2.5 g/dL (3.4-5.0); ANION GAP 13.1 mmol/L (8-16); BILIRUBIN - TOTAL 0.52 mg/dL (0.2-1.3); CALCIUM 8.2 mg/dL (8.5-10.1); CARBON DIOXIDE 31.3 mmol/L (21.0-32.0); CREATININE - SERUM 1.3 mg/dL (0.6-1.3); POTASSIUM - SERUM 3.4 mmol/L (3.5-5.1); PROTEIN - SERUM 7.1 g/dL (6.4-8.2)
[2021-03-30 08:09] VITALS: BP 158/72
--- NOTE | 2021-03-30 08:22 | NUR ---
PATIENT AAOX4, RESP EVEN AND NON LABORED, NO S/S OF DISTRESS, LAB CALLED WITH A GLUCOSE OF 55, APPLE JUICE AND ORANGE JUICE GIVEN, BREAKAST PROVIDED, MEDICATIONS ADMINISTERED, IV ANTIBIOTICS INFUSING, NO FURTHER NEEDS, PATIENT IN A PLEASANT MOOD, CLIR, BLP
[2021-03-30 11:38] VITALS: BP 138/65
[2021-03-30 15:11] VITALS: BP 164/76
--- NOTE | 2021-03-30 16:11 | NUR ---
COVID PCR negative. May discontinue enhanced droplet isolation.
--- NOTE | 2021-03-30 16:51 | CN ---
PATIENT NAME:IWONA BIRCH MEDICAL RECORD: [id number] : 48 LOCATION:D. D.2102 ADMIT DATE: 03/29/21 ACCOUNT: [id number] CONSULTING PHYSICIAN: BEATRIZ OROPEZA MD REFERRING PHYSICIAN: BRYANT BENITO MD DATE OF CONSULTATION: 03/29/2021 IDENTIFYING DATA: The patient is 71 years old and he is admitted to the hospital on a voluntary basis. CHIEF COMPLAINT: Shortness of breath. HISTORY OF PRESENT ILLNESS: The patient tells me that he has been short of breath and would become winded with minor exertion for several weeks. He has been to the Emergency Room 3 times about this, in the first 2 times he says he was checked out and sent home and this most recent time he was admitted. The chest x-ray is reading a pneumonia, multifocal and apparently at some point during this entire process, he was being assessed by nursing and did make some statements that he wanted to hurt himself. He now is backing away from that saying that he has just been very frustrated and upset and that he does not want to hurt himself, he has never wanted to hurt himself, he never has tried to hurt himself, he has never been hospitalized for psychiatric reasons, he is not an alcoholic or drug addict and that he has no history of inpatient or outpatient psychiatric care. He has been treated for depression by his primary care physician and recently some changes were made to his Prozac. I see that on the MAR that he currently is taking 20 mg a day instead of 40. He thinks that the increase to 40 may have caused some dizziness. Again, he has no thoughts of harming himself, he does have a depressive illness. ASSESSMENT: Major depression. PLAN: The patient does not require a sitter. He does not need to be transferred to the behavioral unit once medically stabilized. He is taking 2 antidepressants, which is probably a redundant polypharmacy. I did talk to him about changing him to another medicine from a different class. I was thinking perhaps Effexor, but he wanted to try and take the lower dose of the Prozac first. I or Karen Guillen, the nurse practitioner will follow up with him while he is hospitalized here in case the circumstances described here change and he needs something in addition to what we are currently doing. TRANSINT:[id number] Voice Confirmation ID: [id number] DOCUMENT ID: [id number] BEATRIZ OROPEZA MD at 1651 CC: [id number] DICTATION DATE: 03/29/21 1613 FINISH SANDER: 03/29/21 1714 ADM IN [facility] [address] [place] [address]
--- NOTE | 2021-03-30 19:45 | NUR ---
REPORT RECEIVED. PT A&C, UP IN BED. REQUESTS THAT THIS NURSE KEEPS HIM ALIVE UNTIL THE MORNING SO HE CAN SAY HIS GOODBYES. ENSURED PT THAT WE WILL FOLLOW THE MDS ORDERS SO THAT HE CAN GET BETTER AND D/C. PT STATES HE WANTS TO NATURALLY AND HAS NO PLANS OF SUICIDE. NO S/S OF DISTRESS OBSERVED. RR EVEN & UNLABORED ON 3L. ST 103 ON TELE. BED LOCKED AND LOWERED, CL IN REACH. ASSESSMENT COMPLETE. WILL CONT POC.
--- NOTE | 2021-03-30 20:21 | NUR ---
RECEIVED PT W/O IV. WILL ATTEMPT TO REGAIN ACCESS THIS SHIFT.
[2021-03-30 21:34] VITALS: BP 157/73
--- NOTE | 2021-03-30 22:46 | NUR ---
DR. OROPEZA NOTIFIED AND REVIEWED PT'S BEHAVIOR AND ASSESSMENT RESULTS. PT IS A LOW RISK PER DR. OROPEZA. DR. OROPEZA STATED TO GIVE RESOURCES TO PT AT TIME OF DISCHARGE. NO FURTHER ORDERS AT THIS TIME. RESOURCES REVIEWED WITH PT AND HE VERBALIZED UNDERSTANDING. PT STATES HE DOESNT WANT TO HURT HIMSELF BUT HAS THOUGHTS AT TIMES THAT TELL HIM TO END IT.
--- NOTE | 2021-03-30 23:37 | NUR ---
CONSULTED WITH ANITA SANDHU FROM [facility] TO EVALUATE PT FOR SUICIDAL IDEATIONS. EVALUATION COMPLETE BY ANITA SANDHU. NO NEW ORDERS RECEIVED. PLACE PT ON VIDEO MONITOR FOR CLOSE MONITORING. PT A&O TO SELF, TIME, LOCATION BUT CONFUSED ABOUT SITUATION AND DISEASE PROCESS. NO S/S OF DISTRESS OBSERVED. RR EVEN AND UNLABORED. WILL CONT POC.
--- NOTE | 2021-03-31 00:19 | NUR ---
IV RESITED TO R HAND 22G X3 STICKS. PT TOLERATED WELL. NO S/S OF DISTRESS OBSERVED. RR EVEN & UNLABORED. RESTING IN BED PEACEFULLY.
[2021-03-31 03:12] VITALS: BP 156/76
[2021-03-31 07:06] LABS: BASOPHILS 0.4 % (0-2); EOSINOPHILS 1.2 % (0-7); HEMATOCRIT 28.7 % (42.0-54.0); HEMOGLOBIN 9.1 g/dL (13.5-17.5); LYMPHOCYTES 8.3 % (15-50); MCH 26.5 pg (26.0-34.0); MCHC 31.8 g/dL (31.0-37.0); MCV 83.4 fL (80.0-100.0); MEAN PLATELET VOLUME 7.9 fL (7.4-10.4); MONOCYTES 8.9 % (2-11); NEUTROPHILS 81.2 % (40-80); PLATELET COUNT 378 10x3/uL (130-400); RBC 3.44 10x6/uL (4.20-6.10); RDW 15.4 % (11.5-14.5); WBC 11.4 10x3/uL (4.8-10.8)
[2021-03-31 07:46] LABS: ALBUMIN 2.3 g/dL (3.4-5.0); ANION GAP 8.9 mmol/L (8-16); BILIRUBIN - TOTAL 0.56 mg/dL (0.2-1.3); CALCIUM 8.5 mg/dL (8.5-10.1); CARBON DIOXIDE 30.4 mmol/L (21.0-32.0); CREATININE - SERUM 1.2 mg/dL (0.6-1.3); MAGNESIUM - SERUM 2.2 mg/dL (1.8-2.4); PHOSPHOROUS 3.1 mg/dL (2.5-4.9); POTASSIUM - SERUM 3.3 mmol/L (3.5-5.1); PROTEIN - SERUM 7.2 g/dL (6.4-8.2)
--- NOTE | 2021-03-31 07:47 | NUR ---
AM ROUNDING DONE WITH PATIENTSLIGHT CONFUSION, SLOW TO RESPOND BUT NIGHT NURSE STATES HE IS THIS WAY. ON VENTIMASK 50 %. 12 L. RIGHT HAND SEEN WITH SALINE LOCK, ORANGE SWAB CAP IN PLACE. ROHIT MAT ALARM PLACED UNDER PATIENT AND TURNED ON. PATIENT HAS YELLOW ARM BAND, YELLOW GOWN AND NON SKID SOCKS ON. RIGHT SHOULDER TO RIGHT FA SEEN WITH HEALING BRUISE, STATES HE FELL 5 DAYS PRIOR. ON HEART MONITOR. CALL LIGHT IN LAP.
[2021-03-31 07:50] VITALS: BP 152/75
--- NOTE | 2021-03-31 09:05 | NUR ---
AM MEDS CRUSHED AND GIVEN WITH APPLESAUCE.
--- NOTE | 2021-03-31 09:24 | EC ---
PATIENT:IWONA BIRCH DATE OF SERVICE: 03/29/21 SEX: M MEDICAL RECORD: [id number] DATE OF : 48 LOCATION:D.M2 D.210 AGE OF PATIENT: 71 ADMISSION DATE: 03/29/21 REFERRING PHYSICIAN: INTERPRETING PHYSICIAN: FRANCO PARR MD ECHOCARDIOGRAM REPORT ECHO CHARGES 5 ECHO LIMITED Date: 03/30/21 CLINICAL DIAGNOSIS: SOB ECHOCARDIOGRAPHIC MEASUREMENTS (adult normal given) AC root (d.<3.7cm) 0 cm LV Septum d (<1.2 cm> 0 cm Valve Excursion 0 cm LV Septum (systole) 0 cm Left Atria (s.<4.0cm> 0 cm LVPW d(<1.2cm) 0 cm RV (d.<2.3cm) 0 cm LVPW (sytole) 0 cm LV diastole(<5.6CM) 0 cm MV E-F(>70mm/sec) 0 cm LV systole 0 cm LVOT Diameter 0 cm MV exc.(>10mm) 0 cm Est.ejection fraction (50-75%) % DOPPLER: LVIT cm/sec A 62 cm/sec E 88 cm/sec LA cm/sec RVSP 27 mmHg LVOT cm/sec AOP1/2T m/s Asc. Ao cm/sec RVOT 68 cm/sec RA 76 cm/sec PA cm/sec AV Gradient Peak mmHg AV Mean mmHg AV Area cm MV Gradient Peak mmHg MV Mean mmHg MV Area cm COMMENTS: Gm Video: Blaine GARCIA Professor Of Music: 3 Dr. Mcallister TAPE# Pericardial Effusion N DATE OF SERVICE: Limited 2D, color flow. FINDINGS: No LVH. LV internal dimension is normal. Wall motion is normal. EF is greater than or equal to 55%. Aortic valve is tricuspid with good valve excursion. No significant AI. Left atrium grossly appears normal. Mitral valve has no prolapse and no more than trivial MR. Right-sided chambers appear grossly normal. Normal and trivial TR. ECHOCARDIOGRAM REPORT [id number] IWONA BIRCH TRANSINT:[id number] Voice Confirmation ID: [id number] DOCUMENT ID: [id number] FRANCO PARR MD at 0924 CC: [id number] DICTATION DATE: 03/30/21 170 CASINO RUNNER: 03/30/21 1802 ADM IN [facility] [address] [id number]
--- NOTE | 2021-03-31 10:35 | NUR ---
TO CT SCAN VIA BED AND PORTABLE OXYGEN
--- NOTE | 2021-03-31 10:47 | NUR ---
LAB TO CALL ON CRITICAL D. DIMER WITH RESULT OF 2.52. BACK FROM CT SCAN AND DR BENITO AND MARTINEZ MEADE APN MADE AWARE OF THIS.
[2021-03-31 10:55] VITALS: BP 142/66
--- NOTE | 2021-03-31 12:22 | NUR ---
COMPLETE BED AND LINEN CHANGE DONE FOR INCONT OF SPILLED URINE. PATIENT ALSO WAS ASSSITED TO BEDPAN AND HAD LARGE SOFT BROWN STOOL.
--- NOTE | 2021-03-31 13:07 | NUR ---
REDRAW OF POTASSIUM LEVEL IS RESULTED AT 3.8.
[2021-03-31 15:59] VITALS: BP 147/71
--- NOTE | 2021-03-31 19:46 | NUR ---
PT IN BED, AAO X 2, RESP EVEN AND UNLABORED, NO DISTRESS NOTED, CL IN REACH, SR UP X 2.
[2021-03-31 21:33] VITALS: BP 154/67
[2021-04-01 05:07] VITALS: BP 130/61
[2021-04-01 05:47] LABS: BASOPHILS 0.4 % (0-2); EOSINOPHILS 2.7 % (0-7); HEMATOCRIT 26.2 % (42.0-54.0); HEMOGLOBIN 8.7 g/dL (13.5-17.5); LYMPHOCYTES 7.3 % (15-50); MCH 27.5 pg (26.0-34.0); MCV 83.2 fL (80.0-100.0); MEAN PLATELET VOLUME 8.1 fL (7.4-10.4); MONOCYTES 8.1 % (2-11); NEUTROPHILS 81.5 % (40-80); PLATELET COUNT 357 10x3/uL (130-400); RBC 3.15 10x6/uL (4.20-6.10); RDW 15.4 % (11.5-14.5); RETIC 2.33 % (0.45-2.28); WBC 10.5 10x3/uL (4.8-10.8)
[2021-04-01 05:55] LABS: % SATURATION 6 % (15-55); IRON 12 ug/dl (35-150); TOTAL IRON BIND CAPACITY 182 ug/dl (260-445); UNSAT IRON BIND CAPACITY 170 ug/dl (150-375)
[2021-04-01 06:17] LABS: ALBUMIN 2.3 g/dL (3.4-5.0); BILIRUBIN - TOTAL 0.55 mg/dL (0.2-1.3); CALCIUM 8.4 mg/dL (8.5-10.1); CARBON DIOXIDE 29.4 mmol/L (21.0-32.0); CREATININE - SERUM 1.3 mg/dL (0.6-1.3); MAGNESIUM - SERUM 2.3 mg/dL (1.8-2.4); PHOSPHOROUS 3.2 mg/dL (2.5-4.9); POTASSIUM - SERUM 3.4 mmol/L (3.5-5.1); PROTEIN - SERUM 6.7 g/dL (6.4-8.2)
--- NOTE | 2021-04-01 07:30 | NUR ---
AM ROUNDING DONE WITH PATIENT BEING ON VENTI MASK AT 50% ON 12L. CONTIN. PULSE OX IN USE, SATS ARE 96 %. ROHIT MAT ALARM ON AND IN USE. RIGHT SHOULDER/ARM SEEN WITH OLD HEALING BRUISE. ON HEART MONITOR SHOWING SR, HR 94. ON EP, LABS ARE WNL. ON LOVENOX. RIGHT HAND SEEN PIV WITH SALINE LOCK, ORANGE CAP IN PLACE. CALL LIGHT AT SIDE.
[2021-04-01 07:59] VITALS: BP 125/64
[2021-04-01 12:08] VITALS: BP 129/57
--- NOTE | 2021-04-01 13:25 | NUR ---
PATIENT IS VERY AGGITATED EVEN THOUGH I HAVE SLOWED THE ZITH DOWN TO 50 CC/HR. IV FLUSHES WELL. PATIENT IS GIVEN ORAL ATIVAN TO HELP CALM HIM DOWN. MERYL VOGEL TO TRY AND RE-SITE IV HE IS ADAMENT TO IT COMING OUT. STATES, "JUST LET ME , I DON'T WANT THIS OR ANY MEDICINE ANY MORE". UNSUCCESSFUL TO IV RE-SITE. CALL PLACED TO AUGUSTUS HENRIQUEZ TO COME TALK TO PATIENT.
--- NOTE | 2021-04-01 13:30 | NUR ---
MARTNIEZ MEADE APN TO RETURN PHONE CALL AND MADE AWARE OF SITUATION.
--- NOTE | 2021-04-01 14:26 | NUR ---
PATIENT STATES THAT HE IS "MORE CALM NOW" WITH THE ATIVAN. STILL REQUESTED PAIN MEDICATION. PERCOCET GIVEN ORDERED.
[2021-04-01 15:18] VITALS: BP 139/62
--- NOTE | 2021-04-01 15:48 | NUR ---
PATIENT IS IN MUCH BETTER SPIRIT AT THIS TIME. HE APOLIGIZED FROM THIS AM. DR LUNDBERG IN TO SEE PATIENT.
[2021-04-01 17:08] LABS: ANA REFLEX - ANTICHROMATIN ABS 0.2 AI (0.0-0.9); ANA REFLEX - CENTROMERE B ABS <0.2 AI (0.0-0.9); ANA REFLEX - DBL STRANDED DNA 50 IU/mL (0-9); ANA REFLEX - DIRECT Positive (Negative); ANA REFLEX - JO-1 AB <0.2 AI (0.0-0.9); ANA REFLEX - RNP ANTIBODIES 2.1 AI (0.0-0.9); ANA REFLEX - SCL-70 <0.2 AI (0.0-0.9); ANA REFLEX - SJOGRENS AB SSA 0.3 AI (0.0-0.9); ANA REFLEX - SJOGRENS AB SSB <0.2 AI (0.0-0.9); ANA REFLEX - SMITH AB <0.2 AI (0.0-0.9)
--- NOTE | 2021-04-01 17:54 | NUR ---
NO NEEDS VOICED AT THIS TIME. CLEAN TOP SHEET AND BLANKET CHANGED OUT. ROHIT MAT ALARM IS ON
--- NOTE | 2021-04-01 19:47 | NUR ---
INITIAL ROUNDS COMPLETED. NO DISTRESS NOTED.
[2021-04-01 20:00] VITALS: BP 135/63
--- NOTE | 2021-04-01 23:21 | NUR ---
ASSESSMENT COMPLETED AT 2135 HRRS. VSS. SR PER CM HR 91. PT WITHDRAWN. FOLLOWS COMMANDS AND ANSWERS APPROPRIATELY. NO IV. O2 12 50% VENTI MASK. LUNGS DIMINISHEDIN BASES BILAT. ASKEW. PALPABLE PERIPHERAL PULSES. FADING BRUISE TO R SHOULDER AND ARM. PM FSBS 231. INSULIN GIVEN SUB-Q TO UPPER L ARM PER S/S. PM MEDS GIVEN. PT CURRENTLY RESTING WITH EYES CLOSED. RESP EVEN AND REGULAR. SR UP X2, CALL LIGHT WITHIN REACH.
[2021-04-02] VITALS: BP 117/54
--- NOTE | 2021-04-02 00:53 | NUR ---
PT RESTING WITH EYES CLOSED. RESP EVEN AND REGULAR. CALL LIGHT WITHIN REACH.
--- NOTE | 2021-04-02 01:04 | NUR ---
O2 CHANGED TO 7 LITER HIGH FLOW O2 PER RT.
--- NOTE | 2021-04-02 01:37 | NUR ---
O2 SAT 95% ON 7L HIGH FLOW O2.
--- NOTE | 2021-04-02 02:34 | NUR ---
PT RESTING WITH EYES CLOSED. RESP EVEN AND REGULAR. SR UP X2, CALL LIGHT WITHIN EACH AND BED ALARM ON.
[2021-04-02 04:00] VITALS: BP 120/59
[2021-04-02 05:54] LABS: BASOPHILS 0.1 % (0-2); EOSINOPHILS 6.4 % (0-7); HEMATOCRIT 27.5 % (42.0-54.0); HEMOGLOBIN 8.4 g/dL (13.5-17.5); IMMATURE GRANULOCYTES 0.3 % (0-5); LYMPHOCYTE ABS# 0.73 10x3/uL (1.32-3.57); LYMPHOCYTES 8.1 % (15-50); MCH 26.6 pg (26.0-34.0); MCHC 30.5 g/dL (31.0-37.0); MEAN PLATELET VOLUME 9.8 fL (7.4-10.4); MONOCYTES 7.6 % (2-11); NEUTROPHIL ABS# 6.99 10x3/uL (1.78-5.38); NEUTROPHILS 77.5 % (40-80); PLATELET COUNT 399 10x3/uL (130-400); RBC 3.16 10x6/uL (4.20-6.10)
[2021-04-02 06:07] LABS: ANION GAP 11.7 mmol/L (8-16); BILIRUBIN - TOTAL 0.35 mg/dL (0.2-1.3); CALCIUM 8.5 mg/dL (8.5-10.1); CARBON DIOXIDE 30.9 mmol/L (21.0-32.0); CREATININE - SERUM 1.5 mg/dL (0.6-1.3); MAGNESIUM - SERUM 2.5 mg/dL (1.8-2.4); PHOSPHOROUS 3.9 mg/dL (2.5-4.9); POTASSIUM - SERUM 3.6 mmol/L (3.5-5.1); PROTEIN - SERUM 6.8 g/dL (6.4-8.2)
--- NOTE | 2021-04-02 06:27 | NUR ---
VSS THROUGHOUT NIGHT. SR PER CM. PT RESTED WELL DURNG SHIFT. AM FSBS 206. 4 UNITS INSULIN GIVEN SUB-Q PER S/S. NEEDS MET; WILL CONTINUE TO MONITOR.
--- NOTE | 2021-04-02 07:00 | NUR ---
RECEIVED REPORT. ASSUMED CARE OF PATIENT. RESTING WITH EYES CLOSED, RESP EVEN AND UNLABORED. WHITE BOARD UPDATED, BEDSIDE SHIFT REPORT COMPLETE. NO DISTRESS.
[2021-04-02 08:23] VITALS: BP 119/54
--- NOTE | 2021-04-02 11:08 | NUR ---
fsbs 357. 10 units humulin administered per sliding scale. patient has no iv and refuses iv insertion, iv abx unable to be administered.
--- NOTE | 2021-04-02 11:22 | NUR ---
PATIENT HAS NO IV ACCESS, REFUSES IV PLACEMENT. 2 UNITS PRBC ORDERED AND UNABLE TO BE ADMINISTERED AT THIS TIME.
--- NOTE | 2021-04-02 11:30 | NUR ---
INFORMED FRAME OPENERDESHAUN, THAT PATIENT HAS REFUSED IV PLACEMENT AND UNABLE TO ADMINISTER BLOOD OR IV ANTIBIOTICS. CAN CONSULT SURGERY PER FRAME OPENER IF PATIENT WILL AGREE TO CENTRAL LINE PLACEMENT. SPOKE WITH THE PATIENT AND PATIENT AGREES TO CENTRAL LINE PLACEMENT DUE TO THE FACT THAT HE WILL NOT HAVE TO BE STUCK BY LAB OR ANY OTHER ATTEMPTS FROM NURSING TO HAVE IV PLACED.
--- NOTE | 2021-04-02 13:46 | NUR ---
CONTINUE TO AWAIT CENTRAL LINE PLACEMENT FOR BLOOD ADMINISTRATION AND ABX ADMINISTRATION. PT RESTING IN BED WITH EYES CLOSED. NO DISTRESS.
[2021-04-02 14:54] VITALS: BP 137/57
--- NOTE | 2021-04-02 16:14 | NUR ---
fsbs 219. 4 units humulin administered per sliding scale. no distress. awaiting central line placement.
--- NOTE | 2021-04-02 17:28 | NUR ---
CENTRAL LINE PLACED, BIOPATCH VISIBLE IN CLEAR WINDOW OF DRESSING, SWABCAPS PLACED TO LINES, DRESSING DATED. AWAITING CXR TO VERIFY PLACEMENT.
--- NOTE | 2021-04-02 18:28 | NUR ---
STILL AWAITING CXR TO VERIFY PLACEMENT OF CVL FOR BLOOD TRANSFUSION AND ABX THERAPY.
--- NOTE | 2021-04-02 20:20 | NUR ---
INITIAL ROUNDS COMPLETED AT 1915 HRS. PT DENIED ANY DISCOMFORT. SR UP X2, CALL LIGHT WITHIN REACH.
[2021-04-02 20:56] VITALS: BP 132/65
--- NOTE | 2021-04-02 22:17 | NUR ---
ASSESSMENT COMPLETED AT 1950 HRS. VSS. SR PER CM HR 94. PT ALERT AND ORIENTED. AFFECT WITHDRAWN. DENEIS ANY DISCOMFORT. O2 7L HF O2. LUNGS DIMINISHED IN BASES BILAT. HEALING BRUISE NOTED TO R SHOULDER AND ARM. RTLSC WITH IRON INFUSING VIA MEDIAL PORT. PPALPABLE PERIPHERAL PULSES. PM FSBS 229. 4 UINITS INSULIN GIVEN SUB-Q TO UPPER L ARM PER S/S. PM MEDS GIVEN. TYLENOL 500MG, BENADRYL 25MG IV GIVEN PRE BLOOD ADMINISTRATION. 1ST UNIT PRBCS INITIATED AT 2100 HRS. PT CURRENTLY WATCHING TV. BLOOD INFUSING WITHOUT PROBLEMS. SR UP X2, CALL LIGHT WITHIN REACH.
--- NOTE | 2021-04-02 23:21 | NUR ---
1ST UNIT OF PRBCS INFUSED. NO REACTION NOTED. PT DENIES ANY DISCOMFORT.
--- NOTE | 2021-04-02 23:56 | NUR ---
2ND UNIT PRBCS INITIATED AT 2345 HRS. VSS.
[2021-04-03 00:53] VITALS: BP 145/63
--- NOTE | 2021-04-03 02:05 | NUR ---
PT AWAKE; WATCHING TV. NO DISTRES NOTED. CALL LIGHT WITHIN REACH.
--- NOTE | 2021-04-03 03:08 | NUR ---
2ND UNIT PRBCS INFUSED AT 0235 HRS. NO REACTION NOTED. PT DENIED ANY DISCOMFORT.
--- NOTE | 2021-04-03 04:40 | NUR ---
PT RESTING WITH EYES CLOSED. RESP EVEN AND REGULAR. SR UP X2, CALL LIGHT WITHIN REACH AND BED ALARM ON.
[2021-04-03 05:23] VITALS: BP 163/71
--- NOTE | 2021-04-03 06:41 | NUR ---
AM LAB [facility] VIA [facility]. FSBS 53. 1/2 AMP D50W GIVEN IVP PER PROTOCAL. BS RECHECKED WIT 114 RESULTED. AM MEDS GIVEN. VSS THROUGHOUT NIGHT. PT DENIED ANY DISCOMFORT. NEEDS MET; WILL CONTINUE TO MONITOR.
[2021-04-03 06:50] LABS: BASOPHILS 0.4 % (0-2); EOSINOPHILS 5.9 % (0-7); HEMATOCRIT 32.7 % (42.0-54.0); HEMOGLOBIN 10.6 g/dL (13.5-17.5); LYMPHOCYTES 10.6 % (15-50); MCH 27.5 pg (26.0-34.0); MCHC 32.5 g/dL (31.0-37.0); MCV 84.6 fL (80.0-100.0); MEAN PLATELET VOLUME 7.8 fL (7.4-10.4); MONOCYTES 8.1 % (2-11); PLATELET COUNT 430 10x3/uL (130-400); RBC 3.86 10x6/uL (4.20-6.10); RDW 15.9 % (11.5-14.5)
[2021-04-03 06:55] LABS: ALBUMIN 2.2 g/dL (3.4-5.0); BILIRUBIN - TOTAL 0.74 mg/dL (0.2-1.3); CALCIUM 8.4 mg/dL (8.5-10.1); CARBON DIOXIDE 32.9 mmol/L (21.0-32.0); CREATININE - SERUM 1.2 mg/dL (0.6-1.3); MAGNESIUM - SERUM 2.4 mg/dL (1.8-2.4); PHOSPHOROUS 3.6 mg/dL (2.5-4.9); PROTEIN - SERUM 7.1 g/dL (6.4-8.2)
--- NOTE | 2021-04-03 07:00 | NUR ---
RECEIVED REPORT. ASSUMED CARE OF PATIENT. RESTING WELL WITH EYES CLOSED. RESP EVEN AND UNLABORED. BEDSIDE SHIFT REPORT COMPLETE, WHITE BOARD UPDATED. NO DISTRESS. CALL LIGHT WITHIN REACH.
[2021-04-03 07:32] LABS: ANION GAP 8.8 mmol/L (8-16)
[2021-04-03 07:34] LABS: POTASSIUM - SERUM 2.7 mmol/L (3.5-5.1)
[2021-04-03 09:43] VITALS: BP 154/74
--- NOTE | 2021-04-03 11:50 | NUR ---
FSBS 236. 4 UNITS HUMULIN ADMINISTERED PER SLIDING SCALE.
[2021-04-03 12:17] VITALS: BP 167/72
[2021-04-03 12:23] VITALS: Ht 175.3 cm; Wt 67.8 kg
--- NOTE | 2021-04-03 16:40 | NUR ---
FSBS 214. 4 UNITS HUMULIN ADMINISTERED PER SLIDING SCALE.
[2021-04-03 20:00] VITALS: BP 138/58
--- NOTE | 2021-04-03 23:22 | NUR ---
PT A/O X4. VSS. 02-92% 2L NC. RR-18. PT COMPLAINS OF DULL PAIN IN UPPER LEFT SIDE OF CHEST. PT ABLE TO LOCALIZE EXACT SPOT, STATING IT FEELS LIKE HE CANT "BREAK LOOSE" WHATEVER IT IS. PT STATES, "KELLEN BEEN HERE 10 DAYS AND I WANT TO KNOW IF I'M GETTING ANY BETTER. I WANT A PULMOLOGIST TO COME TALK TO ME. FOR ALL I KNOW IT'S A BONE DOCTOR! i WANT TO KNOW WHAT THE FUCK IS GOING ON WITH ME! PUT A NOTE IN." OTHERWISE PT DOESNT HAVE ANY S/S OF DISTRESS AT THIS TIME. BED LOW CALL LIGHT WITHIN REACH. WILL CONTINUE TO MONITOR.
[2021-04-04] VITALS: BP 161/65
--- NOTE | 2021-04-04 03:52 | NUR ---
I have reviewed this patient and I concur with the Shift Assessment completed by the Licensed Practical Nurse today this shift.
[2021-04-04 04:00] VITALS: BP 149/65
[2021-04-04 05:51] LABS: BASOPHILS 0.7 % (0-2); EOSINOPHILS 5.8 % (0-7); HEMATOCRIT 28.2 % (42.0-54.0); HEMOGLOBIN 9.5 g/dL (13.5-17.5); MCH 28.5 pg (26.0-34.0); MCHC 33.6 g/dL (31.0-37.0); MCV 84.7 fL (80.0-100.0); MEAN PLATELET VOLUME 7.6 fL (7.4-10.4); MONOCYTES 6.6 % (2-11); NEUTROPHILS 78.9 % (40-80); PLATELET COUNT 382 10x3/uL (130-400); RBC 3.33 10x6/uL (4.20-6.10); RDW 15.8 % (11.5-14.5); WBC 9.9 10x3/uL (4.8-10.8)
[2021-04-04 06:26] LABS: ALBUMIN 1.8 g/dL (3.4-5.0); ANION GAP 10.8 mmol/L (8-16); BILIRUBIN - TOTAL 0.29 mg/dL (0.2-1.3); CALCIUM 7.8 mg/dL (8.5-10.1); CREATININE - SERUM 1.2 mg/dL (0.6-1.3); POTASSIUM - SERUM 3.8 mmol/L (3.5-5.1)
--- NOTE | 2021-04-04 07:00 | NUR ---
Lying in bed, awake/alert/oriented, assist to T/R self freq for C/C, cont of B/B with use of urinal/bedpan with assist ad aleida, denies pain/other discomfort at this time, call light/phone/water within reach, no s/s of acute distress observed.
[2021-04-04 08:35] VITALS: BP 157/62
--- NOTE | 2021-04-04 12:00 | NUR ---
Up in chair at bedside at this time.
[2021-04-04 12:20] VITALS: BP 153/63
--- NOTE | 2021-04-04 14:10 | MORECARE ---
CASE MANAGEMENT DISCHARGE SUMMARY PATIENT: IWONA BIRCH UNIT: [id number] ADM DATE: 03/29/21 AGE: 71 : 49 SEX: M ROOM/BED: D.2102 AUTHOR: MIKAL,DOC PHYSICIAN: REFERRING PHYSICIAN: BRYANT BENITO MD DATE OF SERVICE: 04/04/21 Case Management Discharge Planning Summary COMMENTS ENTERED DATE: 04/04/21 14:04 CT COMMENT TYPE: Discharge Planning REVIEWER: Kaila Strickland DC PLAN: Home with home health ANTICIPATED DC NEEDS: [facility] signed CM met with patient to complete initial dc planning assessment. CM educated patient on the CM role and verbal consent given by patient to complete assessment. CM verified patient's address, phone number, and emergency contact phone numbers. Patient lives at home alone. At discharge patient plans to return and feels this is a safe discharge. CM discussed availability of home health, rehab services, and medical equipment. Patient denied need for rehab. He states he has been there before and does not like it. He does consent to home health and [facility] signed. He states he may need oxygen. I do not see a chronic lung diagnosis in his chart, but I will send clinical to [place] and see if they can see anything that would qualify him for oxygen. Transportation provider at discharge will be his friend, Penny. He states he drives and has a neighbor, Indira, that can assist as needed. CM will continue to follow and will assist as needed with dc plans/needs. DCP REVIEW SUMMARY ANTICIPATED D/C DATE: EXPECTED LOS : CASE STATUS: DCP Initiated INITIAL REVIEW: 04/04/2021 INITIAL REVIEWER: Kaila Strickland FINAL DISCHARGE DISPOSITION: : FINAL REVIEWER: FINAL REVIEW DATE: DCP Focus Questions & Answers DCP Screen QUESTION: ANSWER High Risk Factors: : Poor social support DCP Evaluation QUESTION: ANSWER Patient's ability to cope with chronic illness : d. No chronic illness Patient gives permission to discuss discharge plans with: (name, relationship and number) : Penny Miller - friend - [phone] Patient's current cognitive status: : *Oriented to person, place, situation, time and present Family / Caregiver's ability to cope with chronic illness: : a. Adequate (ability to meet patient's medical needs, ensures patient attends medical appts.) Patient and/or caregiver agree upon recommended discharge plan? : Yes Physical Status: : Independent with ADL's Family / Caregiver's ability to cope with chronic illness: : a. Adequate (ability to meet patient's medical needs, ensures patient attends medical appts.) Functional screen assessment: : Basic needs can adequately be met by self Does the patient have the ability to pay for or attain post discharge needs / services? : Yes Partial Dependence, assistance required for: : Ambulation / Mobility Living Arrangements: : Home Alone with Support Equipment needed for post hospitalization: : Home Oxygen with Nasal Cannula Baseline cognitive status: : *Oriented to person, place, situation, time and present Patient with capacity for self-care or can be cared for in same environment as prior to hospitalization? : Yes Results of this evaluation have been discussed with: : Patient Other Equipment comments: : May not qualify for oxygen, I do not see a chronic diagnosis Physical environment modification needed / anticipated for discharge: : No Medication Management: : Patient states can afford medications [facility] [address] PCP is Mary Nair Planned post hospital services available for patient? : Yes Does Patient have transportation to get home and to follow-up medical appointments when discharged from the hospital? : Yes Would patient like to participate in any Care Coordination programs (if applicable): : Not applicable Comments: : States he drives himself Equipment in use: : [facility] [place] Mental health screen: : Receiving treatment, not under the care of a mental health provider Abuse/Neglect: : None Resources / Services in place: : None DCP Re-evaluation QUESTION: ANSWER Would patient like to participate in any Care Coordination programs (if applicable): : Not applicable PATIENT: IWONA BIRCH ENCOUNTER: [id number] MEDICAL RECORD#: [id number] ADMISSION DATE: 03/29/2021 DISCHARGE DATE: ATTENDING MD: BRYANT VALDES : AGE: 71 MARITAL STATUS: S DC PLAN ID: [id number] FACILITY: [facility] PRINTED ON: 04/04/21 14:10 CT All edits/amendments must be made on the electronic document DICTATION DATE: 04/04/211409 TILE MECHANIC HELPER: SUSAN 04/04/21 141 RPT#: [id number] DC DATE: STATUS: ADM IN [facility] [address] [place] [address] END OF REPORT
--- NOTE | 2021-04-04 14:41 | MORECARE ---
CASE MANAGEMENT DISCHARGE SUMMARY PATIENT: IWONA BIRCH UNIT: [id number] ADM DATE: 03/29/21 AGE: 71 : 49 SEX: M ROOM/BED: D.2102 AUTHOR: MIKAL,DOC PHYSICIAN: REFERRING PHYSICIAN: BRYANT BENITO MD DATE OF SERVICE: 04/04/21 Case Management Discharge Planning Summary COMMENTS ENTERED DATE: 04/04/21 14:33 CT COMMENT TYPE: Discharge Planning REVIEWER: Kaila Strickland CM received a call from Taty at [facility] that they cannot accept because of psychiatric history. [facility] also declined because of history. [facility] not take [facility] insurance. I faxed clinical to [facility]. CM will continue to follow and assist with discharge planning/needs. ENTERED DATE: 04/04/21 14:04 CT COMMENT TYPE: Discharge Planning REVIEWER: Kaila Strickland DC PLAN: Home with home health ANTICIPATED DC NEEDS: [facility] for [facility] signed CM met with patient to complete initial dc planning assessment. CM educated patient on the CM role and verbal consent given by patient to complete assessment. CM verified patient's address, phone number, and emergency contact phone numbers. Patient lives at home alone. At discharge patient plans to return and feels this is a safe discharge. CM discussed availability of home health, rehab services, and medical equipment. Patient denied need for rehab. He states he has been there before and does not like it. He does consent to home health and [facility] signed. He states he may need oxygen. I do not see a chronic lung diagnosis in his chart, but I will send clinical to [place] and see if they can see anything that would qualify him for oxygen. Transportation provider at discharge will be his friend, Penny. He states he drives and has a neighbor, Indira, that can assist as needed. CM will continue to follow and will assist as needed with dc plans/needs. DCP REVIEW SUMMARY ANTICIPATED D/C DATE: EXPECTED LOS : CASE STATUS: DCP Initiated INITIAL REVIEW: 04/04/2021 INITIAL REVIEWER: Kaila Strickland FINAL DISCHARGE DISPOSITION: : FINAL REVIEWER: FINAL REVIEW DATE: DCP Focus Questions & Answers DCP Screen QUESTION: ANSWER High Risk Factors: : Poor social support DCP Evaluation QUESTION: ANSWER Patient's ability to cope with chronic illness : d. No chronic illness Patient gives permission to discuss discharge plans with: (name, relationship and number) : Penny robb - [phone] Patient's current cognitive status: : *Oriented to person, place, situation, time and present Family / Caregiver's ability to cope with chronic illness: : a. Adequate (ability to meet patient's medical needs, ensures patient attends medical appts.) Patient and/or caregiver agree upon recommended discharge plan? : Yes Physical Status: : Independent with ADL's Family / Caregiver's ability to cope with chronic illness: : a. Adequate (ability to meet patient's medical needs, ensures patient attends medical appts.) Functional screen assessment: : Basic needs can adequately be met by self Does the patient have the ability to pay for or attain post discharge needs / services? : Yes Partial Dependence, assistance required for: : Ambulation / Mobility Living Arrangements: : Home Alone with Support Equipment needed for post hospitalization: : Home Oxygen with Nasal Cannula Baseline cognitive status: : *Oriented to person, place, situation, time and present Patient with capacity for self-care or can be cared for in same environment as prior to hospitalization? : Yes Results of this evaluation have been discussed with: : Patient Other Equipment comments: : May not qualify for oxygen, I do not see a chronic diagnosis Physical environment modification needed / anticipated for discharge: : No Medication Management: : Patient states can afford medications Pharmacy name(s): : [facility] PCP is Mary Nair Planned post hospital services available for patient? : Yes Does Patient have transportation to get home and to follow-up medical appointments when discharged from the hospital? : Yes Would patient like to participate in any Care Coordination programs (if applicable): : Not applicable Comments: : States he drives himself Equipment in use: : [facility] - [place] Mental health screen: : Receiving treatment, not under the care of a mental health provider Abuse/Neglect: : None Resources / Services in place: : None DCP Re-evaluation QUESTION: ANSWER Would patient like to participate in any Care Coordination programs (if applicable): : Not applicable PATIENT: QUETA IWONA D ENCOUNTER: [id number] MEDICAL RECORD#: [id number] ADMISSION DATE: 03/29/2021 DISCHARGE DATE: ATTENDING MD: BRYANT VALDES : AGE: 71 MARITAL STATUS: S DC PLAN ID: [id number] FACILITY: [facility] PRINTED ON: 04/04/21 14:41 CT All edits/amendments must be made on the electronic document DICTATION DATE: 04/04/211440 PNEUDRAULIC SYSTEMS MECHANIC: SUSAN 04/04/211440 RPT#: [id number] DC DATE: STATUS: ADM IN [facility] [address] [place] [address] END OF REPORT
--- NOTE | 2021-04-04 15:59 | MORECARE ---
CASE MANAGEMENT DISCHARGE SUMMARY PATIENT: IWONA BIRCH UNIT: [id number] ADM DATE: 03/29/21 AGE: 71 : 49 SEX: M ROOM/BED: D.2102 AUTHOR: MIKAL,DOC PHYSICIAN: REFERRING PHYSICIAN: BRYANT BENITO MD DATE OF SERVICE: 04/04/21 Case Management Discharge Planning Summary COMMENTS ENTERED DATE: 04/04/21 15:56 CT COMMENT TYPE: Discharge Planning REVIEWER: Kaila Cook with [facility] states they are capped on C and cannot accept at this time. Joyce states we can check back when closer to DC. ENTERED DATE: 04/04/21 14:33 CT COMMENT TYPE: Discharge Planning REVIEWER: Kaila Strickland CM received a call from Taty at [facility] that they cannot accept because of psychiatric history. [facility] also declined because of history. [facility] do not take [facility] insurance. I faxed clinical to [facility]. CM will continue to follow and assist with discharge planning/needs. ENTERED DATE: 04/04/21 14:04 CT COMMENT TYPE: Discharge Planning REVIEWER: Kaila Strickland DC PLAN: Home with home health ANTICIPATED DC NEEDS: [facility] signed CM met with patient to complete initial dc planning assessment. CM educated patient on the CM role and verbal consent given by patient to complete assessment. CM verified patient's address, phone number, and emergency contact phone numbers. Patient lives at home alone. At discharge patient plans to return and feels this is a safe discharge. CM discussed availability of home health, rehab services, and medical equipment. Patient denied need for rehab. He states he has been there before and does not like it. He does consent to home health and [facility] signed. He states he may need oxygen. I do not see a chronic lung diagnosis in his chart, but I will send clinical to [facility] and see if they can see anything that would qualify him for oxygen. Transportation provider at discharge will be his friend, Penny. He states he drives and has a neighbor, Indira, that can assist as needed. CM will continue to follow and will assist as needed with dc plans/needs. DCP REVIEW SUMMARY ANTICIPATED D/C DATE: EXPECTED LOS : CASE STATUS: DCP Initiated INITIAL REVIEW: 04/04/2021 INITIAL REVIEWER: Kaila Strickland FINAL DISCHARGE DISPOSITION: : FINAL REVIEWER: FINAL REVIEW DATE: DCP Focus Questions & Answers DCP Screen QUESTION: ANSWER High Risk Factors: : Poor social support DCP Evaluation QUESTION: ANSWER Patient's ability to cope with chronic illness : d. No chronic illness Patient gives permission to discuss discharge plans with: (name, relationship and number) : Penny Miller - friend - [phone] Patient's current cognitive status: : *Oriented to person, place, situation, time and present Family / Caregiver's ability to cope with chronic illness: : a. Adequate (ability to meet patient's medical needs, ensures patient attends medical appts.) Patient and/or caregiver agree upon recommended discharge plan? : Yes Physical Status: : Independent with ADL's Family / Caregiver's ability to cope with chronic illness: : a. Adequate (ability to meet patient's medical needs, ensures patient attends medical appts.) Functional screen assessment: : Basic needs can adequately be met by self Does the patient have the ability to pay for or attain post discharge needs / services? : Yes Partial Dependence, assistance required for: : Ambulation / Mobility Living Arrangements: : Home Alone with Support Equipment needed for post hospitalization: : Home Oxygen with Nasal Cannula Baseline cognitive status: : *Oriented to person, place, situation, time and present Patient with capacity for self-care or can be cared for in same environment as prior to hospitalization? : Yes Results of this evaluation have been discussed with: : Patient Other Equipment comments: : May not qualify for oxygen, I do not see a chronic diagnosis Physical environment modification needed / anticipated for discharge: : No Medication Management: : Patient states can afford medications Pharmacy name(s): : [facility] [address] PCP is Mary Nair Planned post hospital services available for patient? : Yes Does Patient have transportation to get home and to follow-up medical appointments when discharged from the hospital? : Yes Would patient like to participate in any Care Coordination programs (if applicable): : Not applicable Comments: : States he drives himself Equipment in use: : [facility] [place] Mental health screen: : Receiving treatment, not under the care of a mental health provider Abuse/Neglect: : None Resources / Services in place: : None DCP Re-evaluation QUESTION: ANSWER Would patient like to participate in any Care Coordination programs (if applicable): : Not applicable PATIENT: IWONA BIRCH ENCOUNTER: [id number] MEDICAL RECORD#: [id number] ADMISSION DATE: 03/29/2021 DISCHARGE DATE: ATTENDING MD: BRYANT VALDES : AGE: 71 MARITAL STATUS: S DC PLAN ID: [id number] FACILITY: [facility] PRINTED ON: 04/04/21 15:59 CT All edits/amendments must be made on the electronic document DICTATION DATE: 04/04/211558 OPERATIONAL INTELLIGENCE OFFICER: SUSAN 04/04/21 155 RPT#: [id number] DC DATE: STATUS: ADM IN [facility] [address] [place] [address] END OF REPORT
[2021-04-04 16:13] VITALS: BP 151/72
--- NOTE | 2021-04-04 19:45 | NUR ---
REPORT RECEIVED. PATIENT IS AAOX4, LYING IN SEMI-FOWLERS POSITION. 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 APOLOGIZED TO PATIENT AND RETRIEVED TYLENOL AND RT VAL. NO S/S OF DISTRESS OBSERVED. RR EVEN AND UNLABORED ON 2L O2 VIA NC. RT CHEST SUBCLAVIAN, PATENT, INFUSING NS @ 100ML/HR. PATIENT DENIES FURTHER NEEDS AT THIS TIME. CL IN REACH, BED LOCKED AND LOWERED. WILL CPOC.
[2021-04-04 20:00] VITALS: BP 147/54
[2021-04-05] VITALS: BP 163/69
[2021-04-05 04:00] VITALS: BP 166/76
--- NOTE | 2021-04-05 04:55 | NUR ---
I have reviewed this patient and I concur with the Shift Assessment completed by the Licensed Practical Nurse today this shift.
[2021-04-05 05:38] LABS: BASOPHILS 0.5 % (0-2); EOSINOPHILS 3.7 % (0-7); HEMATOCRIT 31.9 % (42.0-54.0); HEMOGLOBIN 10.2 g/dL (13.5-17.5); LYMPHOCYTES 6.2 % (15-50); MCH 27.5 pg (26.0-34.0); MCV 85.8 fL (80.0-100.0); MEAN PLATELET VOLUME 7.8 fL (7.4-10.4); MONOCYTES 6.4 % (2-11); NEUTROPHILS 83.2 % (40-80); PLATELET COUNT 406 10x3/uL (130-400); RBC 3.72 10x6/uL (4.20-6.10); RDW 15.8 % (11.5-14.5)
[2021-04-05 05:42] LABS: ANION GAP 10.4 mmol/L (8-16); CALCIUM 8.3 mg/dL (8.5-10.1); CARBON DIOXIDE 29.5 mmol/L (21.0-32.0); CREATININE - SERUM 1.1 mg/dL (0.6-1.3); POTASSIUM - SERUM 3.9 mmol/L (3.5-5.1)
[2021-04-05 05:43] LABS: WBC 12.9 10x3/uL (4.8-10.8)
[2021-04-05 05:44] LABS: APTT 33.4 SECONDS (22.8-39.4); INR 1.44 (0.85-1.17); PROTIME 16.2 SECONDS (11.6-15.0)
--- NOTE | 2021-04-05 07:10 | NUR ---
Sitting up in bed, awake/alert/oriented, has intermittent episodes of confusion, T/R self ad aleida, encouraged frequently to change position, cont of B/B with episodes of incont, uses urinal and bedpan frequently, also uses incont pads for the episodes of incont, pericare provided with daily bath and prn, denies pain/other discomfort at this time, call light/phone/water within reach, no s/s of acute distress observed.
[2021-04-05 08:27] VITALS: BP 145/71
--- NOTE | 2021-04-05 10:15 | NUR ---
Up in chair at bedside.
--- NOTE | 2021-04-05 11:44 | NUR ---
OT NOTE: PTS ALARM GOING OFF AND PT WAS ATTEMPTING TO GET OUT OF BED..HE HAD INCONTINENT EPISODE OF BOWELS AND BM WAS ALL OVER HIS IV LINE, GOWN, BED, ETC.. REQUIURED ASSIST TO GET TO BATHROOM..EXTENSIVE VERBAL CUES TO DIRECT PT TO SIT DOWN ON TOILET.. DIFFICULTY FOLLOWING COMMANDS AND STAYING ON TASK TODAY. PT VERY SOB..STATES THAT HE CANT BREATH, HOWEVER, CEHCKED O2 AND SATS WERE 95%..PT ACTING MUCH WEAKER AND INCREASED SOB COMPARED TO YESTERDAY. INFORMED RESP THERAPY. REQUIRED MOD ASSIST AND EXT TIME FOR THOROUGH TOILET HYGIENE..MOD ASSIST WITH DONNING GOWN.. ASSISTED PT BACK TO BED WITH MIN ASSIST.. NEHA CUMMINGS, OTR/L [phone]
[2021-04-05 11:45] VITALS: BP 148/69
--- NOTE | 2021-04-05 12:48 | NUR ---
Off unit for procedure via bed in stable coindition accompanied by hospital staff.
--- NOTE | 2021-04-05 13:37 | NUR ---
Returned to unit via bed in stable condition accompanied by hospital staff.
--- NOTE | 2021-04-05 15:31 | NUR ---
OT NOTE: PT COMPLETED SUPINE TO SIT WITH MIN A. PT COMPLETED SITTING EOB WITH CGA. PT COMPLETED SIT TO STAND WITH CGA-MIN A. PT COMPLETED FACE HYGIENE WITH MIN A. PT COMPLETED HAND HYGIENE WITH MIN A. [phone] THANK YOU,SHARMAINE PALMER
[2021-04-05 15:56] VITALS: BP 139/80
[2021-04-05 20:00] VITALS: BP 160/70
[2021-04-06] VITALS (7 sets, daily range): BP systolic 133–161; BP diastolic 62–701
--- NOTE | 2021-04-06 02:23 | NUR ---
I have reviewed this patient and I concur with the Shift Assessment completed by the Licensed Practical Nurse today this shift.
--- NOTE | 2021-04-06 04:03 | NUR ---
LOUD NOISES HEARD FROM NURSES STATION THAT SOUNDED LIKE BROKEN GLASS. UPON ARRIVAL PT WAS BANGING INCENTIVE SPIROMETER ON BEDSIDE TABLE. PT YELLING "HOW LONG DOES THIS SHIT LAST" PT APPEARED TO BE UPSET ABOUT RESPIRATORY STATUS. IS REMOVED FROM ROOM FOR SAFETY. PT REMAINS UPSET STATES HE HAS BEEN HERE 14DAYS AND HASNT GOTTEN BETTER. UNABLE TO REDIRECT PT AT THIS TIME. WILL CTM.
--- NOTE | 2021-04-06 04:33 | NUR ---
PATIENT AGITATED AND YELLING. STATES, "I WANT A CURE NOW". ADMINISTERED PRN TYLENOL THAT HE STATES HE ASKED FOR 48HRS AGO AND PRN ATIVAN FOR AGITATION. PATIENT DENIES FURTHER NEEDS IF I'M NOT ABLE TO CURE HIM. CL IN REACH, BED LOCKED AND LOWERED. WILL CPOC.
--- NOTE | 2021-04-06 07:00 | NUR ---
Lying in bed, awake/alert/oriented, has episodes of intermittent confusion and is confused as to time, T/R self ad aleida, cont of B/B with use of urinal/bedpan with assist ad aleida, denies pain/other discomfort at this time, call light/phone/water within reach, no s/s of acute distress observed.
--- NOTE | 2021-04-06 10:52 | NUR ---
Nutrition Follow-up: Ate well this AM (75-100%). S/p bone marrow biopsy yesterday. Awaiting placement. Diet: Consistent Carb No new wt; last wt: 155# (04/03) Labs noted: POC Glu 64 Meds noted: Lasix, Protonix, Ferrlecit, Folate, Florajen, Lantus, Humulin, NS @ 50, electrolyte protocol -Encourage PO intake and honor food preferences within diet restrictions. -Need new wt; daily wts ordered. -RD will follow up within 4-5 days.
--- NOTE | 2021-04-06 14:25 | NUR ---
OT NOTE:(AM) PT COMPLETED SUPINE TO SIT WITH CGA. PT COMPLETED SIT TO STANDS WITH CGA. PT COMPLETED ADL MOBILITY WITH CGA TO TOILET. PT COMPLETED SELF SHAVING TASKS WITH MIN A. PT SITTING UP IN CHAIR WITH ALARM AND CL. (PM) PT COMPLETED CHAIR TO BED TSF WITH CGA. PT COMPLETED POSITIONING IN BED WITH SPV. [phone] THANK YOU,SHARMAINE PALMER
--- NOTE | 2021-04-06 19:30 | NUR ---
RECEIVED REPORT, WILL ASSUME CARE OF PT, SLEEPING, NO DISTRESS NOTICED AT THIS TIME, BED IS LOW, SRX2, CALL LIGHT IN REACH, WILL CONTINUE PLAN OF CARE
[2021-04-07 01:38] VITALS: BP 162/81
--- NOTE | 2021-04-07 06:26 | NUR ---
I have reviewed this patient and I concur with the Shift Assessment completed by the Licensed Practical Nurse today this shift.
[2021-04-07 06:37] VITALS: BP 156/71
--- NOTE | 2021-04-07 07:00 | NUR ---
Lying in bed, awake/alert/oriented, T/R self ad aleida, cont of B/B with use of urinal/bedpan with assist ad aleida, denies pain/other discomfort at this time, call light/phone/water within reach, no s/s of acute distress observed.
--- NOTE | 2021-04-07 08:26 | NUR ---
I AM FOLLOWING UP ON REFERRALS RECEIVED WHILE I WAS IN TRAINING. THIS PATIENT IS STILL ON 5L OF OXYGEN AND WOULD NEED TO BE AT 4L OR LESS FOR INPATIENT REHAB. MR. BIRCH CURRENTLY DOES NOT LOOK IF HE WILL BE ABLE TO PARTICIPATE IN 3 HOURS OF THERAPY, AND THEREFORE HIS INSURANCE ([facility]) WOULD NOT APPROVE HIM. WE WILL CONTINUE TO WATCH AND IF HE LOOKS LIKE HE WILL MEET CRITERIA, WE WILL PROCEED WITH THE SCREEN AND SUBMISSION FOR AUTH WITH HIS INSURANCE COMPANY. THANK YOU FOR THIS REFERRAL. WENDY HERNANDEZ RN CLINICAL LIAISON, INPATIENT REHAB.
--- NOTE | 2021-04-07 11:00 | NUR ---
Up in chair at bedside, awake/alert/oriented, no s/s of acute distress observed.
[2021-04-07 12:30] VITALS: BP 123/58
--- NOTE | 2021-04-07 14:33 | NUR ---
OT NOTE: PT COMPLETED SUPINE TO SIT WITH CGA. PT COMPLETED ADL MOBILITY WITH CGA-MIN A. PT COMPLETED LB HYGIENE WITH MAX A. PT COMPLETED SITTING BALANCE WITH CGA. PT COMPLETED FACE HYGIENE WITH SETUP. [phone] JOSE STEVEN COTA
--- NOTE | 2021-04-07 14:40 | NUR ---
OT NOTE: PERFORMED BED MOB WITH MIN ASSIST; EOB SITTING WITH GOOD BALANCE; AMB TO BATHROOMWITH WALKER AND MIN ASSIST; EXT TIME TO PERFORM TOILET HYGIENE BUT WAS ABLE TO PERFORM WITHOUT ASSIST; SIMPLE GROOMING WITH SET UP AND VC; LE DRESSING WITH MIN ASSIST NEHA CUMMINGS, OTR/L [phone]
[2021-04-07 16:10] VITALS: BP 123/58
[2021-04-07 20:20] VITALS: BP 136/65
[2021-04-08] VITALS (7 sets, daily range): BP systolic 138–160; BP diastolic 66–74
--- NOTE | 2021-04-08 03:28 | NUR ---
I have reviewed this patient and I concur with the Shift Assessment completed by the Licensed Practical Nurse today this shift.
--- NOTE | 2021-04-08 07:00 | NUR ---
RECEIVED REPORT. ASSUMED CARE OF PATIENT. PATIENT RESTING WELL IN BED WITH EYES CLOSED. RESP EVEN AND UNLABORED. WHITE BOARD UPDATED, BEDSIDE SHIFT REPORT COMPLETE. NO DISTRESS.
--- NOTE | 2021-04-08 11:17 | NUR ---
FSBS 240. 4 UNITS HUMULIN ADMINISTERED PER SLIDING SCALE.
--- NOTE | 2021-04-08 16:21 | NUR ---
FSBS 179. 2 UNITS HUMULIN ADMINISTERED PER SLIDING SCALE. NO DISTRESS.
--- NOTE | 2021-04-08 19:50 | NUR ---
RECEIVED REPORT, WILL ASSUME CARE PT, PT DENIES ANY NEEDS AT THIS TIME, BED IS LOW, SRX2, CALL LIGHT IN REACH, WILL CONTINUE PLAN OF CARE
[2021-04-09 02:23] VITALS: BP 142/66
[2021-04-09 06:14] VITALS: BP 138/68
--- NOTE | 2021-04-09 07:00 | NUR ---
RECEIVED REPORT. ASSUMED CARE OF PATIENT. PATIENT RESTING IN BED WITH EYES OPEN WITH ATTENTION TOWARD TELEVISION. CALL LIGHT WITHIN REACH. WHITE BOARD UPDATED, BEDSIDE SHIFT REPORT COMPLETE. NO DISTRESS.
[2021-04-09 07:45] VITALS: BP 132/63
--- NOTE | 2021-04-09 08:24 | NUR ---
ONE TIME DIETARY REQUEST SENT, PATIENT STILL HUNGRY.
[2021-04-09 09:13] LABS: BASOPHILS 0.7 % (0-2); EOSINOPHILS 3.6 % (0-7); HEMATOCRIT 31.5 % (42.0-54.0); HEMOGLOBIN 10.1 g/dL (13.5-17.5); LYMPHOCYTES 9.7 % (15-50); MCH 27.8 pg (26.0-34.0); MCHC 32.1 g/dL (31.0-37.0); MCV 86.8 fL (80.0-100.0); MEAN PLATELET VOLUME 7.9 fL (7.4-10.4); MONOCYTES 8.1 % (2-11); NEUTROPHILS 77.9 % (40-80); PLATELET COUNT 428 10x3/uL (130-400); RBC 3.63 10x6/uL (4.20-6.10); RDW 17.2 % (11.5-14.5)
[2021-04-09 09:25] LABS: ALBUMIN 2.2 g/dL (3.4-5.0); ALKALINE PHOSPHATASE 94 U/L (30-120); ALT (SGPT) 119 U/L (10-68); BILIRUBIN - TOTAL 0.22 mg/dL (0.2-1.3); CALC OSMOLALITY 285 mosm/kg (275-300); CALCIUM 8.1 mg/dL (8.5-10.1); CARBON DIOXIDE 31.9 mmol/L (21.0-32.0); CHLORIDE - SERUM 106 mmol/L (98-107); POTASSIUM - SERUM 3.5 mmol/L (3.5-5.1); PROTEIN - SERUM 6.3 g/dL (6.4-8.2); SODIUM 142 mmol/L (136-145); UREA NITROGEN 18 mg/dL (7-18); eGFR NON AFRICAN AMERICAN 78 mL/min (90-120)
[2021-04-09 09:33] LABS: GLUCOSE 111 mg/dL (74-106)
[2021-04-09 11:23] VITALS: BP 135/63
--- NOTE | 2021-04-09 11:51 | NUR ---
FSBS 163. 2 UNITS HUMULIN ADMINISTERED PER SLIDING SCALE. NO DISTRESS.
[2021-04-09 15:11] VITALS: BP 155/54
--- NOTE | 2021-04-09 16:55 | NUR ---
FSBS 163. 2 UNITS HUMULIN ADMINISTERED PER SLIDING SCALE. NO DISTRESS. CONSUMING PM MEAL AT THIS TIME.
--- NOTE | 2021-04-09 19:05 | NUR ---
REPORT RECEIVED. PATIENT IS AAOX4, LYING IN SEMI-FOWLERS POSITION. NO S/S OF DISTRESS OBSERVED, RR EVEN AND UNLABORED ON 5L HFNC. RT SUBCLAVIAN CVL, PATENT, INFUSING NS @ 100ML/HR. PATIENT DENIES NEEDS AT THIS TIME. CL IN REACH, BED LOCKED AND LOWERED. WILL CPOC.
[2021-04-09 20:00] VITALS: BP 152/65
[2021-04-10] VITALS: BP 149/70
[2021-04-10 04:00] VITALS: BP 134/64
--- NOTE | 2021-04-10 07:20 | NUR ---
RECIEVE REPORT. RESTING IN BED WITH EYES CLOSED. O2 @ 5LHF. RESPIRATIONS EVEN. NO SIGNS OF DISTRESS. CONTINUE PLAN OF CARE AND SAFETY PRECAUTIONS.
[2021-04-10 07:44] VITALS: BP 146/75
[2021-04-10] MEDS ORDERED: PLAVIX75 MG PO (09:41)
--- NOTE | 2021-04-10 10:24 | NUR ---
OT NOTE: PT REQUIRED CGA-MIN A FOR SUPINE TO SIT. PT COMPLETED SIT TO STAND WITH CGA-MIN A. PT COMPETED ADL MOB W/O DEVICE WITH CGA-MIN A. PT COMPLETED TOILETING WITH MIN A FOR CLOTHING MANAGEMENT. PT REQUIRED MOD A FOR TOILET HYGIENE. PT COMPLETED ADL MOBILITY TO SINK WITH CGA-MIN A. PT COMPLETED HAND HYGIENE AT SINK WITH CGA. PT COMPLETED FACE HYGIENE AT SINK WITH CGA. PT DONNED SOCK WHILE SUPINE IN BED WITH SETUP. [phone] JOSE STEVEN COTA
[2021-04-10 10:53] VITALS: BP 147/64
--- NOTE | 2021-04-10 12:31 | NUR ---
Nutrition Reassessment/Follow-up: Eating well. Awaiting placement. Diet: Carb Consistent PO intake: 100% x 3 yesterday Wt: 149.2# (04/06) Labs noted: POC Glu 264 Meds noted: Lasix, Protonix, Folate, Florajen, Humulin, NS @ 50 Nutrition Intervention/Recommendations: -Nutrition needs, Dx, & goals unchanged since initial assessment. -Need new wt. -RD will follow up within 7 days if pt still admitted.
--- NOTE | 2021-04-10 14:48 | OP ---
PATIENT NAME: IWONA BIRCH MEDICAL RECORD: [id number] :48 LOCATION:D.M2 D.2101 ADMISSION DATE:03/29/21 SURGEON: YORDAN COREAS MD DATE OF OPERATION: 04/02/2021 PREOPERATIVE DIAGNOSES: 1. Need for IV access. 2. Multifocal pneumonia. POSTOPERATIVE DIAGNOSES: 1. Need for IV access. 2. Multifocal pneumonia. PROCEDURE: Right subclavian vein triple-lumen central venous line placement. SURGEON: Yordan Coreas MD DESCRIPTION OF PROCEDURE: The patient's right chest was prepped and draped in sterile fashion. A 5 mL of 1% lidocaine with epinephrine was infused into the surrounding tissues. A needle was used to cannulate the right subclavian vein. The guidewire was advanced with ease. Over this wire, a dilator was placed followed by the triple lumen catheter. The catheter aspirated nonpulsatile dark blood and flushed easily in all 3 ports. This was sutured in place with 3-0 Prolene and dressed appropriately. COMPLICATIONS: None. CONDITION: Stable. ANESTHESIA: Local. BLOOD LOSS: Minimal. Procedure done at the bedside. TRANSINT:[id number] Voice Confirmation ID: [id number] DOCUMENT ID: [id number] YORDAN COREAS MD at 1448 CC: [id number] DICTATION DATE: 04/02/211713 INVESTIGATION LIEUTENANT: 04/02/21 214 ADM IN [facility] [address] [place] [address]
[2021-04-10] MEDS ORDERED: RANEXA500 MG PO (15:22)
[2021-04-10 15:28] VITALS: BP 141/58
--- NOTE | 2021-04-10 18:13 | NUR ---
OT NOTE: PT COMPLETED LB HYGIENE TASKS MAX A. PT COMPLETED HAND HYGIENE WITH SETUP. [phone] JOSE STEVEN COTA
[2021-04-10 20:00] VITALS: BP 150/75
[2021-04-11] VITALS (7 sets, daily range): BP systolic 113–152; BP diastolic 43–77
--- NOTE | 2021-04-11 03:29 | NUR ---
I have reviewed this patient and I concur with the Shift Assessment completed by the Licensed Practical Nurse today this shift.
[2021-04-11 07:08] LABS: EOSINOPHILS 4.5 % (0-7); HEMATOCRIT 31.5 % (42.0-54.0); HEMOGLOBIN 10.2 g/dL (13.5-17.5); LYMPHOCYTES 12.5 % (15-50); MCH 28.3 pg (26.0-34.0); MCHC 32.4 g/dL (31.0-37.0); MCV 87.4 fL (80.0-100.0); MEAN PLATELET VOLUME 8.3 fL (7.4-10.4); MONOCYTES 7.7 % (2-11); NEUTROPHILS 74.3 % (40-80); PLATELET COUNT 418 10x3/uL (130-400); RDW 17.7 % (11.5-14.5); WBC 8.3 10x3/uL (4.8-10.8)
--- NOTE | 2021-04-11 07:10 | NUR ---
Lying in bed with eyes closed, respirations slow/deep/even, rouses easily with verbal stimulus, denies pain/other discomfort at this time, call light/phone/water within reach, no s/s of acute distress observed.
--- NOTE | 2021-04-11 07:20 | NUR ---
Lying in bed, awake/alert/oriented, T/R self ad aleida, cont of B/B with episodes of incont, uses incont pads, uses urinal mostly, denies pain/other discomfort at this time, call light/phone/water within reach, no s/s of acute distress observed.
[2021-04-11 07:28] LABS: ALBUMIN 2.1 g/dL (3.4-5.0); ALKALINE PHOSPHATASE 90 U/L (30-120); ALT (SGPT) 97 U/L (10-68); BILIRUBIN - TOTAL 0.26 mg/dL (0.2-1.3); CALC OSMOLALITY 287 mosm/kg (275-300); CALCIUM 7.8 mg/dL (8.5-10.1); CARBON DIOXIDE 33.7 mmol/L (21.0-32.0); CHLORIDE - SERUM 106 mmol/L (98-107); GLUCOSE 97 mg/dL (74-106); PROTEIN - SERUM 6.3 g/dL (6.4-8.2); SODIUM 144 mmol/L (136-145); UREA NITROGEN 16 mg/dL (7-18); eGFR NON AFRICAN AMERICAN 78 mL/min (90-120)
--- NOTE | 2021-04-11 10:00 | NUR ---
Up to chair at bedside per self ad aleida, call light/phone/water within reach, no s/s of acute distress observed.
--- NOTE | 2021-04-11 10:50 | NUR ---
WE HAVE JUST RECEIVED ANOTHER REHAB PRESCREEN ON THIS PATIENT. WE HAVE BEEN FOLLOWING THIS PATIENT, BUT NEED GOOD REHAB NOTES IN ORDER TO SHOW HE MEETS THE CRITERIA FOR INPATIENT REHAB. I HAVE BEEN IN COMMUNICATION WITH THE MAT REPAIRER THAT WHEN WE HAVE THE REQUIREMENTS TO FOR INPATIENT REHAB AND THE INFORMATION TO SUBMIT TO THE INSURANCE COMPANY, WE WILL SUBMIT. THANK YOU FOR THE SECOND REFERRAL. WENDY HERNANDEZ RN CLINICAL LIAISON, INPATIENT REHAB.
--- NOTE | 2021-04-11 12:44 | NUR ---
OT NOTE: DISCUSSED WITH NURSING STAFF THE FACT THAT PT DOES NOT INITIATE ANY OF HIS SELF CARE ACTIVITIES. UPON SEEING PT TODAY, HE STATED THAT HE HAD HAD ANOTHER ACCIDENT. THERAPIST ASKED PT IF HE PREVIOUSLY HAD ANY PROBLEMS WITH INCONTINENCE OR BEING ABLE TO TELL WHEN HE NEEDED TO GO TO BATHROOM, AND PT STATED NO. PT THEN STATED THAT HE JUST NEEDED A BED OFNSECA SO HE WOULD NOT HAVE TO HAVE A BM IN THE BED. EXPLAINED TO PT THAT IF HE HAD ENOUGH TIME TO MANAGE BEDPAN, THEN HE COULD PROBABLY USE THE BS COMMODE JUST EASILY, AND THAT IT WOULD BE MORE HYGIENIC.. PT STATED THAT HE COULD NOT DO THAT BECAUSE OF "ALL THE TUBES" (MEANING IV LINES AND 02 TUBING) .. ASKED PT WHAT HE PLANNED TO DO UPON DC, AND HE STATED THAT HE WOULD GET SOMEONE TO COME OUT 2-3XS PER WEEK TO ASSIST HIM.. WHEN ASKED WHAT HE WOULD DO ABOUT TOILETING AT HOME, HE DID NOT HAVE AND ANSWER. PT WAS ABLE TO GET UP TO TOILET WITH MIN ASSIST AND ASSIST FOR MGMT OF IV; HE IS ABLE TO PERFORM TOILET HYGIENE BUT DOES NOT DO A THOROUGH JOB.. HE DOES NOT INITITATE WASHING HANDS, AND WHEN PROVIDED WITH A WARM WASHCLOTH, HE DOES NOT EVEN GET THE FECES OFF OF HIS HANDS.. PT ABLE TO AMB IN ROOM AND INTO HALLWAY WITH O2 AND RW.. FATIGUES QUICKLY.. PT IS UNSAFE TO RETURN HOME WITHOUT 24 HR CARE DUE TO LACK OF INITITATION, DECREASED ATTN TO TASK, SAFETY, AND LOW MOTIVATION. NEHA CUMMINGS, OTR/L 1100 PT ABLE TO PERFORM BED MOB WITH SBA.
--- NOTE | 2021-04-11 17:48 | MORECARE ---
CASE MANAGEMENT DISCHARGE SUMMARY PATIENT: IWONA BIRCH UNIT: [id number] ADM DATE: 03/29/21 AGE: 71 : 49 SEX: M ROOM/BED: D.2102 AUTHOR: MIKAL,DOC PHYSICIAN: REFERRING PHYSICIAN: BRYANT BENITO MD DATE OF SERVICE: 04/11/21 Case Management Discharge Planning Summary COMMENTS ENTERED DATE: 04/11/21 17:43 CT COMMENT TYPE: Discharge Planning REVIEWER: Ivana Peterson Inpatient Rehab [facility] evaluating patient. Awaiting therapy note to send for auth. ENTERED DATE: 04/04/21 15:56 CT COMMENT TYPE: Discharge Planning REVIEWER: Kaila Cook with [facility] states they are capped on [employer] and cannot accept at this time. Joyce states we can check back when closer to [place]. ENTERED DATE: 04/04/21 14:33 CT COMMENT TYPE: Discharge Planning REVIEWER: Kaila Strickland CM received a call from Taty at [facility] that they cannot accept because of psychiatric history. [facility] also declined because of history. [facility] not take [facility] insurance. I faxed clinical to [facility]. CM will continue to follow and assist with discharge planning/needs. ENTERED DATE: 04/04/21 14:04 CT COMMENT TYPE: Discharge Planning REVIEWER: Kaila Strickland DC PLAN: Home with home health ANTICIPATED DC NEEDS: IKE for [facility] signed CM met with patient to complete initial dc planning assessment. CM educated patient on the CM role and verbal consent given by patient to complete assessment. CM verified patient's address, phone number, and emergency contact phone numbers. Patient lives at home alone. At discharge patient plans to return and feels this is a safe discharge. CM discussed availability of home health, rehab services, and medical equipment. Patient denied need for rehab. He states he has been there before and does not like it. He does consent to home health and IKE for [facility] signed. He states he may need oxygen. I do not see a chronic lung diagnosis in his chart, but I will send clinical to [facility] and see if they can see anything that would qualify him for oxygen. Transportation provider at discharge will be his friend, Penny. He states he drives and has a neighbor, Indira, that can assist as needed. CM will continue to follow and will assist as needed with dc plans/needs. DCP REVIEW SUMMARY ANTICIPATED D/C DATE: EXPECTED LOS : CASE STATUS: DCP Initiated INITIAL REVIEW: 04/04/2021 INITIAL REVIEWER: Kaila Strickland FINAL DISCHARGE DISPOSITION: : FINAL REVIEWER: FINAL REVIEW DATE: DCP Focus Questions & Answers DCP Screen QUESTION: ANSWER High Risk Factors: : Poor social support DCP Evaluation QUESTION: ANSWER Patient and/or caregiver agree upon recommended discharge plan? : Yes Family / Caregiver's ability to cope with chronic illness: : a. Adequate (ability to meet patient's medical needs, ensures patient attends medical appts.) Patient's current cognitive status: : *Oriented to person, place, situation, time and present Patient gives permission to discuss discharge plans with: (name, relationship and number) : Penny Miller - friend - [phone] Patient's ability to cope with chronic illness : d. No chronic illness Does the patient have the ability to pay for or attain post discharge needs / services? : Yes Functional screen assessment: : Basic needs can adequately be met by self Family / Caregiver's ability to cope with chronic illness: : a. Adequate (ability to meet patient's medical needs, ensures patient attends medical appts.) Physical Status: : Independent with ADL's Equipment needed for post hospitalization: : Home Oxygen with Nasal Cannula Living Arrangements: : Home Alone with Support Partial Dependence, assistance required for: : Ambulation / Mobility Other Equipment comments: : May not qualify for oxygen, I do not see a chronic diagnosis Results of this evaluation have been discussed with: : Patient Patient with capacity for self-care or can be cared for in same environment as prior to hospitalization? : Yes Baseline cognitive status: : *Oriented to person, place, situation, time and present Physical environment modification needed / anticipated for discharge: : No Medication Management: : Patient states can afford medications Planned post hospital services available for patient? : Yes Pharmacy name(s): : [facility] [address] PCP is Mary Nair Does Patient have transportation to get home and to follow-up medical appointments when discharged from the hospital? : Yes Comments: : States he drives himself Would patient like to participate in any Care Coordination programs (if applicable): : Not applicable Equipment in use: : [facility] [employer] Mental health screen: : Receiving treatment, not under the care of a mental health provider Abuse/Neglect: : None Resources / Services in place: : None DCP Re-evaluation QUESTION: ANSWER Would patient like to participate in any Care Coordination programs (if applicable): : Not applicable PATIENT: IWONA BIRCH ENCOUNTER: [id number] MEDICAL RECORD#: [id number] ADMISSION DATE: 03/29/2021 DISCHARGE DATE: ATTENDING MD: BRYANT VALDES : AGE: 71 MARITAL STATUS: S DC PLAN ID: [id number] FACILITY: [facility] PRINTED ON: 04/11/21 17:48 CT All edits/amendments must be made on the electronic document DICTATION DATE: 04/11/211747 CARGOMAN: SUSAN 04/11/211747 [facility]#: [id number] DC DATE: STATUS: ADM IN [facility] [address] [place] [address] END OF REPORT
--- NOTE | 2021-04-11 20:00 | NUR ---
PT ASSESSMENT COMPLETED. PT ADMITTED FOR SOB, HYPOXIA HE IS A DIABETIC AND IS ON DIABETIC DIET. HE IS A/O. HE IS UP WITH ASSIST. HE HAS A RIGHT SUBCLAVIAN THAT IS PATIENT WITHNO PAIN. HEHAS NS INFUSING AT 50 ML/HR. HE IS ON 5 L ALONSO FLOW O2. HE IS ON TELE. HE IS RUNNING RATE 69 IN SINUS RHYTHM. HE HAS BS ACHS. BLOOD SUGAR WAS 191. HE RECEIVED 2 UNITS OF REGULAR INSULIN. HE WEARS PULL UP BUT IS MOSTLY CONTINENT. HE USES A URINAL. HE WATCHED BASKETBALL ALL NIGHT WAS REALLY GOT INTO THE GAME. HE WAS EXCITED WHEN IT WAS A THRILLER AT THE END. HE HAS NO C/O OR NEEDS AT THIS TIME HIS CALL LIGHT IS IN REACH AND HE KNOWS TO CALL IF HE NEEDS ANYTHING. SIDE RAILS UP X2.
[2021-04-12] VITALS: BP 149/69
[2021-04-12 04:00] VITALS: BP 141/62
[2021-04-12 06:27] LABS: EOSINOPHILS 3.9 % (0-7); HEMOGLOBIN 9.9 g/dL (13.5-17.5); LYMPHOCYTES 13.2 % (15-50); MCH 28.4 pg (26.0-34.0); MEAN PLATELET VOLUME 8.3 fL (7.4-10.4); MONOCYTES 7.9 % (2-11); PLATELET COUNT 411 10x3/uL (130-400); RBC 3.49 10x6/uL (4.20-6.10); WBC 8.9 10x3/uL (4.8-10.8)
[2021-04-12 06:39] LABS: ALBUMIN 2.1 g/dL (3.4-5.0); ANION GAP 6.2 mmol/L (8-16); BILIRUBIN - TOTAL 0.24 mg/dL (0.2-1.3); CALCIUM 7.8 mg/dL (8.5-10.1); CARBON DIOXIDE 32.7 mmol/L (21.0-32.0); CREATININE - SERUM 1.1 mg/dL (0.6-1.3); PROTEIN - SERUM 6.2 g/dL (6.4-8.2)
--- NOTE | 2021-04-12 07:20 | NUR ---
Lying in bed, awake/alert/oriented, T/R self ad aleida, cont of B/B with use of Urinal/bedpan ad aleida, cath care provided with daily bath and PRN, no s/s of pain/other discomfort observed, no s/s of acute distress observedl
[2021-04-12 07:42] LABS: POTASSIUM - SERUM 2.9 mmol/L (3.5-5.1)
--- NOTE | 2021-04-12 07:42 | NUR ---
Hand Roller Kathleen call potassium of 2.9
[2021-04-12 07:44] VITALS: BP 177/89
[2021-04-12 11:10] VITALS: BP 121/59
--- NOTE | 2021-04-12 12:28 | NUR ---
OT NOTE: PT UP IN CHAIR; PERFORMED SIT TO STAND EXS TO ASSIST IWTH UE STRENGTH AND ENDURANCE; PROVIDED PT WITH WASH CLOTH FOR FACE AND HANDS.. REQUIRED SEVERAL CUES TO PERFORM MORE THOROUGHLY.. PT GETS AGITATED WHEN ASKED TO REPEAT THIS TASK. PT ABLE TO JESICA AND DOFF SHOES WITH SET UP; REMAINS WEAK AND SOB WITH MIN EXERTION.. 02 AT 6L. NEHA CUMMINGS, OTR/L
--- NOTE | 2021-04-12 12:32 | NUR ---
THANK YOU FOR THIS REFERRAL. NOTIFIED ANITA COBOS, CM THAT PATIENT IS MOST APPROPRIATE FOR SKILLED REHAB AT THIS TIME. -JAJA HOGAN LPN, CLINICAL LIAISON
[2021-04-12 15:37] VITALS: BP 137/65
[2021-04-12 23:38] VITALS: BP 151/63
[2021-04-13 05:00] VITALS: BP 131/66
[2021-04-13 06:28] LABS: BASOPHILS 2.4 % (0-2); EOSINOPHILS 4.3 % (0-7); HEMATOCRIT 30.2 % (42.0-54.0); HEMOGLOBIN 9.9 g/dL (13.5-17.5); LYMPHOCYTES 16.6 % (15-50); MCH 28.3 pg (26.0-34.0); MCHC 32.7 g/dL (31.0-37.0); MCV 86.7 fL (80.0-100.0); MEAN PLATELET VOLUME 8.3 fL (7.4-10.4); MONOCYTES 10.1 % (2-11); NEUTROPHILS 66.6 % (40-80); PLATELET COUNT 396 10x3/uL (130-400); RBC 3.48 10x6/uL (4.20-6.10); RDW 17.5 % (11.5-14.5); WBC 6.8 10x3/uL (4.8-10.8)
[2021-04-13 06:32] LABS: ALBUMIN 2.2 g/dL (3.4-5.0); ALKALINE PHOSPHATASE 92 U/L (30-120); ALT (SGPT) 73 U/L (10-68); BILIRUBIN - TOTAL 0.27 mg/dL (0.2-1.3); CALC OSMOLALITY 290 mosm/kg (275-300); CALCIUM 7.9 mg/dL (8.5-10.1); CARBON DIOXIDE 33.1 mmol/L (21.0-32.0); CHLORIDE - SERUM 108 mmol/L (98-107); GLUCOSE 156 mg/dL (74-106); PROTEIN - SERUM 6.3 g/dL (6.4-8.2); SODIUM 144 mmol/L (136-145); UREA NITROGEN 15 mg/dL (7-18); eGFR NON AFRICAN AMERICAN 78 mL/min (90-120)
[2021-04-13 06:34] LABS: POTASSIUM - SERUM 3.6 mmol/L (3.5-5.1)
--- NOTE | 2021-04-13 07:00 | NUR ---
Lying in bed, awake/alert/oriented, T/R self ad aleida, cont of B/B with use of urinal/bedpan ad aleida, denies pain/other discomfort at this time, call light/phone/water within reach, no s/s of acute distress observed
[2021-04-13 09:00] VITALS: BP 129/68
[2021-04-13 12:00] VITALS: BP 114/61
[2021-04-13 20:00] VITALS: BP 126/85
--- NOTE | 2021-04-13 22:12 | NUR ---
OT NOTE: PT COMPLETED SUPINE TO SIT WITH SBA. PT COMPLETED EOB SITTING BALANCE WITH SBA. PT COMPLETED JESICA SHOES WITH SETUP. PT COMPLETED FACE AND HAND HYGIENE AT SINK LEVEL WITH SBA-CGA. PT COMPLETED ADL MOBILITY WITH CGA. PT STATED " I GUESS I AM GONNA LIVE HERE AND NEVER GET OUT." [phone] THANK YOU,SHARMAINE PALMER
[2021-04-13 23:30] VITALS: BP 133/64
--- NOTE | 2021-04-14 01:30 | NUR ---
PT HAVING OUT BURST CONCERNING HIS SERVICE. PT STATES, "YA'LL DON'T DO A GODDAMN THING! WHEN I RING THIS RANDALL I EXPECT SERVICE!" HOUSE NEIL ENTERED ROOM HEARING THE YELLING FROM THE PT. PT TOLD HER TO "GET THE FUCK OUT!' PT ASKED ME FOR PAPER STATING HE IS WRITING ALL OF THE STAFF UP. THIS NURSE PROVIDED PT WITH PAPER AND PENCIL. PT THANKS THIS NURSE. 20MIN LATER THIS NURSE CHECKS ON PT. HE HAD WRITTEN FRONT TO BACK ON PAPER AND STATES, "ILL NEED MORE PLEASE." I GAVE HIM MORE. IT SEEMED TO CALM PT AND THIS NURSE WAS ABLE TO GIVE INSULIN AND NIGHT MEDS WITHOUT PROBLEM. 0203- PT RESTING WITH EYES CLOSED RR E/U. NO S/S OF DISTRESS. BED LOW CALL LIGHT WITHIN REACH. WILL CONTINUE TO MONITROR.
[2021-04-14 05:39] VITALS: BP 132/55
[2021-04-14 06:25] LABS: EOSINOPHILS 4.1 % (0-7); HEMATOCRIT 30.5 % (42.0-54.0); HEMOGLOBIN 9.9 g/dL (13.5-17.5); LYMPHOCYTES 18.7 % (15-50); MCH 28.2 pg (26.0-34.0); MCHC 32.4 g/dL (31.0-37.0); MCV 87.1 fL (80.0-100.0); MEAN PLATELET VOLUME 8.4 fL (7.4-10.4); MONOCYTES 9.1 % (2-11); NEUTROPHILS 67.1 % (40-80); PLATELET COUNT 384 10x3/uL (130-400); RDW 17.4 % (11.5-14.5); WBC 7.7 10x3/uL (4.8-10.8)
--- NOTE | 2021-04-14 07:00 | NUR ---
Lying in bed, eyes closed, respirations slow/deep/even, rouses easily with verbal stimulus, cont of B/B with use of urinal/BSC/incont pads ad aleida, denies pain/other discomfort at this time, call light/phone/water within reach, no s/s of acute distress observed.
[2021-04-14 08:39] LABS: ALBUMIN 2.3 g/dL (3.4-5.0); ANION GAP 10.9 mmol/L (8-16); BILIRUBIN - TOTAL 0.26 mg/dL (0.2-1.3); CALCIUM 8.1 mg/dL (8.5-10.1); CARBON DIOXIDE 28.8 mmol/L (21.0-32.0); CREATININE - SERUM 1.2 mg/dL (0.6-1.3); POTASSIUM - SERUM 3.7 mmol/L (3.5-5.1); PROTEIN - SERUM 6.2 g/dL (6.4-8.2)
[2021-04-14 09:00] VITALS: BP 157/76
--- NOTE | 2021-04-14 12:24 | NUR ---
OT NOTE: PT COMPLETED SUPINE TO SIT WITH CGA. PT COMPLETED SIT TO STAND WITH CGA. PT COMPLETED ADL MOB WITH CGA. PT DONNED SOCKS AT EOB WITH SBA. PT COMPLETED SIMPLE BATHING TASKS WITH CGA. PT DONNED BRIEF WITH SETUP. [phone] JOSE STEVEN COTA
[2021-04-14 16:00] VITALS: BP 136/70
--- NOTE | 2021-04-14 19:05 | NUR ---
RECIEVED BEDSIDE SHIFT REPORT. ALERT AND ORIENTED WITH PERIODS OF CONFUSION. O2@ 4 LITERS PER HF. CVL TO RT CHEST WITH NS AT 50CC/HR. DENIES ANY NEEDS AT THIS TIME.
--- NOTE | 2021-04-14 20:34 | MORECARE ---
CASE MANAGEMENT DISCHARGE SUMMARY PATIENT: IWONA BIRCH UNIT: [id number] ADM DATE: 03/29/21 AGE: 71 : 49 SEX: M ROOM/BED: D.2102 AUTHOR: MIKAL,DOC PHYSICIAN: REFERRING PHYSICIAN: BRYANT BENITO MD DATE OF SERVICE: 04/14/21 Case Management Discharge Planning Summary COMMENTS ENTERED DATE: 04/14/21 20:23 CT COMMENT TYPE: Discharge Planning REVIEWER: Ivana Peterson Patient not a candidate for INPT Rehab. Spoke with Patient he agrees to SNF placement. CM sent referral to [facility]. CM will need to complete a GIRISH if accepted to [facility]. Awaiting auth for SNF by [facility]. CM will continue to follow and assist as needed. ENTERED DATE: 04/11/21 17:43 CT COMMENT TYPE: Discharge Planning REVIEWER: Ivana Peterson [facility]patient Re[facility] evaluating patient. Awaiting therapy note to send for auth. ENTERED DATE: 04/04/21 15:56 CT COMMENT TYPE: Discharge Planning REVIEWER: Kaila Cook with [facility] states they are capped on [facility] and cannot accept at this time. Joyce states we can check back when closer to [place]. ENTERED DATE: 04/04/21 14:33 CT COMMENT TYPE: Discharge Planning REVIEWER: Kaila Strickland CM received a call from [facility] [place] that they cannot accept because of psychiatric history. [facility] also declined because of [facility]. [facility] do not take [facility] insurance. I faxed clinical to [facility]. CM will continue to follow and assist with discharge planning/needs. ENTERED DATE: 04/04/21 14:04 CT COMMENT TYPE: Discharge Planning REVIEWER: Kaila Strickland DC PLAN: Home with home health ANTICIPATED DC NEEDS: IKE for [place] signed CM met with patient to complete initial dc planning assessment. CM educated patient on the CM role and verbal consent given by patient to complete assessment. CM verified patient's address, phone number, and emergency contact phone numbers. Patient lives at home alone. At discharge patient plans to return and feels this is a safe discharge. CM discussed availability of home health, rehab services, and medical equipment. Patient denied need for rehab. He states he has been there before and does not like it. He does consent to home health and [facility] for [facility] signed. He states he may need oxygen. I do not see a chronic lung diagnosis in his chart, but I will send clinical to [facility] and see if they can see anything that would qualify him for oxygen. Transportation provider at discharge will be his friend, Penny. He states he drives and has a neighbor, Indira, that can assist as needed. CM will continue to follow and will assist as needed with dc plans/needs. DCP REVIEW SUMMARY ANTICIPATED D/C DATE: EXPECTED LOS : CASE STATUS: DCP Initiated INITIAL REVIEW: 04/04/2021 INITIAL REVIEWER: Kaila Strickland FINAL DISCHARGE DISPOSITION: : FINAL REVIEWER: FINAL REVIEW DATE: DCP Focus Questions & Answers DCP Screen QUESTION: ANSWER High Risk Factors: : Poor social support DCP Evaluation QUESTION: ANSWER Patient and/or caregiver agree upon recommended discharge plan? : Yes Family / Caregiver's ability to cope with chronic illness: : a. Adequate (ability to meet patient's medical needs, ensures patient attends medical appts.) Patient's current cognitive status: : *Oriented to person, place, situation, time and present Patient gives permission to discuss discharge plans with: (name, relationship and number) : Penny Miller - friend - [phone] Patient's ability to cope with chronic illness : d. No chronic illness Does the patient have the ability to pay for or attain post discharge needs / services? : Yes Functional screen assessment: : Basic needs can adequately be met by self Family / Caregiver's ability to cope with chronic illness: : a. Adequate (ability to meet patient's medical needs, ensures patient attends medical appts.) Physical Status: : Independent with ADL's Equipment needed for post hospitalization: : Home Oxygen with Nasal Cannula Living Arrangements: : Home Alone with Support Partial Dependence, assistance required for: : Ambulation / Mobility Other Equipment comments: : May not qualify for oxygen, I do not see a chronic diagnosis Results of this evaluation have been discussed with: : Patient Patient with capacity for self-care or can be cared for in same environment as prior to hospitalization? : Yes Baseline cognitive status: : *Oriented to person, place, situation, time and present Physical environment modification needed / anticipated for discharge: : No Medication Management: : Patient states can afford medications Planned post hospital services available for patient? : Yes Pharmacy name(s): : [facility] [address] PCP is Mary Nair Does Patient have transportation to get home and to follow-up medical appointments when discharged from the hospital? : Yes Comments: : States he drives himself Would patient like to participate in any Care Coordination programs (if applicable): : Not applicable Equipment in use: : [place] - [place] Mental health screen: : Receiving treatment, not under the care of a mental health provider Abuse/Neglect: : None Resources / Services in place: : None DCP Re-evaluation QUESTION: ANSWER Would patient like to participate in any Care Coordination programs (if applicable): : Not applicable PATIENT: IWONA BIRCH ENCOUNTER: [id number] MEDICAL RECORD#: [id number] ADMISSION DATE: 03/29/2021 DISCHARGE DATE: ATTENDING MD: BRYANT VALDES : AGE: 71 MARITAL STATUS: S DC PLAN ID: [id number] FACILITY: [facility] PRINTED ON: 04/14/21 20:34 CT All edits/amendments must be made on the electronic document DICTATION DATE: 04/14/212033 NURSE: SUSAN 04/14/212033 [facility]#: [id number] DC DATE: STATUS: ADM IN [facility] [address] [place] [address] END OF REPORT
[2021-04-14 21:06] VITALS: BP 148/66
[2021-04-15 02:09] VITALS: BP 136/61
[2021-04-15 06:32] LABS: BASOPHILS 0.8 % (0-2); EOSINOPHILS 3.2 % (0-7); HEMATOCRIT 32.8 % (42.0-54.0); HEMOGLOBIN 10.4 g/dL (13.5-17.5); LYMPHOCYTES 14.1 % (15-50); MCH 27.7 pg (26.0-34.0); MCHC 31.9 g/dL (31.0-37.0); MCV 87.1 fL (80.0-100.0); MEAN PLATELET VOLUME 8.1 fL (7.4-10.4); MONOCYTES 9.6 % (2-11); NEUTROPHILS 72.3 % (40-80); PLATELET COUNT 372 10x3/uL (130-400); RBC 3.76 10x6/uL (4.20-6.10); RDW 17.4 % (11.5-14.5)
[2021-04-15 06:47] VITALS: BP 133/63
--- NOTE | 2021-04-15 07:00 | NUR ---
RECIEVED REPORT. ASSUMED CARE OF PATIENT. CALL LIGHT WITHIN REACH. RESTING WITH EYES CLOSED, EASILY AROUSED. BEDSIDE SHIFT REPORT COMPLETE, WHITE BOARD UPDATED. NO DISTRESS.
[2021-04-15 07:40] LABS: ALBUMIN 2.5 g/dL (3.4-5.0); ALKALINE PHOSPHATASE 95 U/L (30-120); ALT (SGPT) 63 U/L (10-68); BILIRUBIN - TOTAL 0.28 mg/dL (0.2-1.3); CALC OSMOLALITY 289 mosm/kg (275-300); CALCIUM 8.4 mg/dL (8.5-10.1); CARBON DIOXIDE 30.4 mmol/L (21.0-32.0); CHLORIDE - SERUM 107 mmol/L (98-107); POTASSIUM - SERUM 3.8 mmol/L (3.5-5.1); PROTEIN - SERUM 6.3 g/dL (6.4-8.2); SODIUM 145 mmol/L (136-145); UREA NITROGEN 17 mg/dL (7-18); eGFR NON AFRICAN AMERICAN 78 mL/min (90-120)
[2021-04-15 07:42] LABS: GLUCOSE 81 mg/dL (74-106)
[2021-04-15 09:11] VITALS: BP 148/77
--- NOTE | 2021-04-15 11:41 | NUR ---
FSBS 147. NO INSULIN PER SLIDING SCALE.
--- NOTE | 2021-04-15 15:06 | NUR ---
PATIENT SHAVED AT THIS TIME.
[2021-04-15 16:39] VITALS: BP 138/78
--- NOTE | 2021-04-15 16:41 | NUR ---
FSBS 292. 6 UNITS HUMULIN ADMINISTERED PER SLIDING SCALE.
[2021-04-15 20:59] VITALS: BP 192/69
--- NOTE | 2021-04-15 22:30 | NUR ---
REPORT RECEIVED. PATIENT LAYING IN BED WATCHING TV. A&O WITH SOME CONFUSION, UP WITH ASSIST, 4L HFNC, R SUB CVL NS @50, DRESSING CLEAN, DRY, INTACT WITH NO SIGNS OF REDNESS OR SWELLING. SR 85. BED LOCKED, LOW, CALL LIGHT, AND BEDSIDE TABLE WITHIN REACH. WILL CONTINUE PLAN OF CARE.
[2021-04-16] VITALS: BP 131/63
[2021-04-16 04:30] VITALS: BP 144/67
[2021-04-16 06:19] LABS: BASOPHILS 0.9 % (0-2); HEMATOCRIT 34.4 % (42.0-54.0); LYMPHOCYTES 18.2 % (15-50); MCH 27.8 pg (26.0-34.0); MCHC 31.9 g/dL (31.0-37.0); MCV 87.1 fL (80.0-100.0); MEAN PLATELET VOLUME 8.5 fL (7.4-10.4); MONOCYTES 9.1 % (2-11); NEUTROPHILS 67.8 % (40-80); PLATELET COUNT 359 10x3/uL (130-400); RBC 3.95 10x6/uL (4.20-6.10); RDW 17.8 % (11.5-14.5); WBC 8.1 10x3/uL (4.8-10.8)
[2021-04-16 06:38] LABS: ALBUMIN 2.5 g/dL (3.4-5.0); BILIRUBIN - TOTAL 0.18 mg/dL (0.2-1.3); CALCIUM 8.1 mg/dL (8.5-10.1); CARBON DIOXIDE 32.5 mmol/L (21.0-32.0); CREATININE - SERUM 1.1 mg/dL (0.6-1.3); POTASSIUM - SERUM 3.5 mmol/L (3.5-5.1); PROTEIN - SERUM 6.6 g/dL (6.4-8.2)
--- NOTE | 2021-04-16 07:00 | NUR ---
RECEIVED REPORT. ASSUMED CARE OF PATIENT. PATIENT RESTING IN BED WITH EYES CLOSED, EASILY AROUSED. RESP EVEN AND UNLABORED. WHITE BOARD UPDATED, BEDSIDE SHIFT REPORT COMPLETE. IV FLUIDS INFUSING ORDERED. NO DISTRESS.
[2021-04-16 08:55] VITALS: BP 121/60
--- NOTE | 2021-04-16 11:41 | NUR ---
ASSISTED OOB TO CHAIR AT BEDSIDE FOR NOON MEAL. NO DISTRESS. MINIMAL ASSISTANCE REQUIRED.
[2021-04-16 13:03] VITALS: BP 103/53
--- NOTE | 2021-04-16 15:39 | NUR ---
COMPLETE LINEN CHANGE. PATIENT REMAINS SITTING UP IN CHAIR AT BEDSIDE. DENIES NEEDS AT THIS TIME.
--- NOTE | 2021-04-16 16:32 | NUR ---
ASSISTED PATIENT BACK TO BED. RESTING COMFORTABLY. NO DISTRESS.
[2021-04-16 20:39] VITALS: BP 141/61
[2021-04-17 01:57] VITALS: BP 122/68
[2021-04-17 05:52] VITALS: BP 136/67
--- NOTE | 2021-04-17 07:00 | NUR ---
RECIEVED REPORT. ASSUMED CARE OF PATIENT. PATIENT RESTING WITH EYES CLOSED, EASILY AROUSED. RESP EVEN AND UNLABORED. CONTINUE TO AWAIT PLACEMENT. BEDSIDE SHIFT REPORT COMPLETE, WHITE BOARD UPDATED. NO DISTRESS.
[2021-04-17 07:09] LABS: BASOPHILS 1.3 % (0-2); EOSINOPHILS 4.3 % (0-7); HEMATOCRIT 31.4 % (42.0-54.0); HEMOGLOBIN 10.1 g/dL (13.5-17.5); LYMPHOCYTES 21.7 % (15-50); MCH 28.1 pg (26.0-34.0); MCHC 32.2 g/dL (31.0-37.0); MCV 87.5 fL (80.0-100.0); MEAN PLATELET VOLUME 8.5 fL (7.4-10.4); MONOCYTES 10.6 % (2-11); NEUTROPHILS 62.1 % (40-80); PLATELET COUNT 329 10x3/uL (130-400); RBC 3.59 10x6/uL (4.20-6.10); RDW 17.2 % (11.5-14.5); WBC 7.2 10x3/uL (4.8-10.8)
[2021-04-17 07:24] LABS: ALBUMIN 2.3 g/dL (3.4-5.0); ANION GAP 7.3 mmol/L (8-16); BILIRUBIN - TOTAL 0.2 mg/dL (0.2-1.3); CALCIUM 7.7 mg/dL (8.5-10.1); CARBON DIOXIDE 33.5 mmol/L (21.0-32.0); CREATININE - SERUM 1.1 mg/dL (0.6-1.3); POTASSIUM - SERUM 3.8 mmol/L (3.5-5.1); PROTEIN - SERUM 6.3 g/dL (6.4-8.2)
[2021-04-17 08:00] VITALS: BP 131/64
[2021-04-17 12:00] VITALS: BP 149/86
--- NOTE | 2021-04-17 14:09 | NUR ---
Nutrition Reassessment/Follow-up: Eating well. Awaiting placement. Diet: Carb Consistent PO intake: 75-100% No new wt; last wt: 149.2# (04/06) Labs noted: Glu 226, Ca 7.7, Alb 2.3 Meds reviewed -Nutrition needs, Dx, & goals unchanged. -Continue current diet as tolerated. -RD will follow up within 7 days if pt still admitted.
--- NOTE | 2021-04-17 15:41 | NUR ---
OT NOTE: PT UP IN CHAIR WITH FEET UP ON BS TABLE.. PT ABLE TO PERFORM SIT TO STAND WITH MIN ASSIST; AMB IN ROOM WITH WALKER AND CGA; ABLE TO WASH HANDS WITH CLOTH AND VERBAL CUES FOR THOROUGH CLEANING; FEEDING WITH SET UP; USE OF URINAL WITH SET UP. NEHA CUMMINGS, OTR/L
[2021-04-17 16:00] VITALS: BP 149/88
[2021-04-17 21:55] VITALS: BP 148/73
--- NOTE | 2021-04-17 22:57 | NUR ---
REPORT RECEIVED. PT A&O, UP IN BED WATCHING TV. NO S/S OF DISTRESS OBSERVED. RR EVEN & UNLABORED ON 2L. R CHEST CVL W/ NS @ 50 INFUSING. ORDERED TELE AT THIS TIME. BED LOCKED AND LOWERED, CL IN REACH. WILL CONT POC.
[2021-04-18 02:21] VITALS: BP 138/69
[2021-04-18 06:06] VITALS: BP 108/57
[2021-04-18 06:33] LABS: ALBUMIN 2.5 g/dL (3.4-5.0); ANION GAP 8.1 mmol/L (8-16); BILIRUBIN - TOTAL 0.19 mg/dL (0.2-1.3); CALCIUM 7.9 mg/dL (8.5-10.1); CARBON DIOXIDE 32.5 mmol/L (21.0-32.0); CREATININE - SERUM 1.3 mg/dL (0.6-1.3); PROTEIN - SERUM 6.1 g/dL (6.4-8.2)
[2021-04-18 06:35] LABS: POTASSIUM - SERUM 4.6 mmol/L (3.5-5.1)
[2021-04-18 07:31] LABS: BASOPHILS 1.1 % (0-2); EOSINOPHILS 3.4 % (0-7); HEMOGLOBIN 10.3 g/dL (13.5-17.5); LYMPHOCYTES 15.2 % (15-50); MCH 28.1 pg (26.0-34.0); MCHC 32.2 g/dL (31.0-37.0); MCV 87.2 fL (80.0-100.0); NEUTROPHILS 71.3 % (40-80); PLATELET COUNT 350 10x3/uL (130-400); RBC 3.67 10x6/uL (4.20-6.10); RDW 17.6 % (11.5-14.5); WBC 8.8 10x3/uL (4.8-10.8)
[2021-04-18 09:00] VITALS: BP 129/57
[2021-04-18 16:00] VITALS: BP 130/68
--- NOTE | 2021-04-18 16:24 | NUR ---
GT BELT, PATIENT WALKED 250 FEET WITH MIN ASST USING WALKER. O2 AT 2
--- NOTE | 2021-04-18 17:00 | NUR ---
OT NOTE: PT UP IN CHAIR WITH FEET ELEVATED ON TABLE. PT ABLE TO PERFORM SIMPLE GROOMING TASKS AND ADLS INCLUDING DONNING SOCKS/SHOES.. PT CONT TO EXHIBIT DECREASED INITIATION TOWARDS ALL ADLS EXCLUDING EATING. PT FRUSTRATED AT SITUATION.. WANTS TO LEAVE HOSPITAL (HOWEVER, HAS NO WHERE TO GO). CM CONTINUES TO WORK ON PLACEMENT. NEHA CUMMINGS, OTR/L
--- NOTE | 2021-04-18 18:25 | MORECARE ---
CASE MANAGEMENT DISCHARGE SUMMARY PATIENT: IWONA BIRCH UNIT: [id number] ADM DATE: 03/29/21 AGE: 71 : 49 SEX: M ROOM/BED: D.2102 AUTHOR: MIKAL,DOC PHYSICIAN: REFERRING PHYSICIAN: BRYANT BENITO MD DATE OF SERVICE: 04/18/21 Case Management Discharge Planning Summary COMMENTS ENTERED DATE: 04/18/21 18:18 CT COMMENT TYPE: Discharge Planning REVIEWER: Ivana Peterson CM notified that [facility] has accepted and have received auth from insurance. CM filled out GIRISH and sent to [facility] for review / approval late this evening. Hopefully will get approval and can d/c tomorrow. ENTERED DATE: 04/14/21 20:23 CT COMMENT TYPE: Discharge Planning REVIEWER: Ivana Peterson Patient not a candidate for INPT Rehab. Spoke with Patient he agrees to SNF placement. CM sent referral to [facility]. CM will need to complete a GIRISH if accepted to [facility]. Awaiting auth for SNF by [facility]. CM will continue to follow and assist as needed. ENTERED DATE: 04/11/21 17:43 CT COMMENT TYPE: Discharge Planning REVIEWER: Ivana Peterson Inpatient Rehab [facility] evaluating patient. Awaiting therapy note to send for auth. ENTERED DATE: 04/04/21 15:56 CT COMMENT TYPE: Discharge Planning REVIEWER: Kaila Cook with [facility] states they are capped on [facility] and cannot accept at this time. Joyce states we can check back when closer to [place]. ENTERED DATE: 04/04/21 14:33 CT COMMENT TYPE: Discharge Planning REVIEWER: Kaila Strickland CM received a call from [facility] that they cannot accept because of psychiatric history. [facility] also declined because of history. [facility] do not take [facility] insurance. I faxed clinical to [facility]. CM will continue to follow and assist with discharge planning/needs. ENTERED DATE: 04/04/21 14:04 CT COMMENT TYPE: Discharge Planning REVIEWER: Kaila Strickland DC PLAN: Home with home health ANTICIPATED DC NEEDS: [facility] signed CM met with patient to complete initial dc planning assessment. CM educated patient on the CM role and verbal consent given by patient to complete assessment. CM verified patient's address, phone number, and emergency contact phone numbers. Patient lives at home alone. At discharge patient plans to return and feels this is a safe discharge. CM discussed availability of home health, rehab services, and medical equipment. Patient denied need for rehab. He states he has been there before and does not like it. He does consent to home health and [facility] signed. He states he may need oxygen. I do not see a chronic lung diagnosis in his chart, but I will send clinical to [place] and see if they can see anything that would qualify him for oxygen. Transportation provider at discharge will be his friend, Pneny. He states he drives and has a neighbor, Indira, that can assist as needed. CM will continue to follow and will assist as needed with dc plans/needs. DCP REVIEW SUMMARY ANTICIPATED D/C DATE: EXPECTED LOS : CASE STATUS: DCP Initiated INITIAL REVIEW: 04/04/2021 INITIAL REVIEWER: Kaila Strickland FINAL DISCHARGE DISPOSITION: : FINAL REVIEWER: FINAL REVIEW DATE: DCP Focus Questions & Answers DCP Screen QUESTION: ANSWER High Risk Factors: : Poor social support DCP Evaluation QUESTION: ANSWER Patient and/or caregiver agree upon recommended discharge plan? : Yes Family / Caregiver's ability to cope with chronic illness: : a. Adequate (ability to meet patient's medical needs, ensures patient attends medical appts.) Patient's current cognitive status: : *Oriented to person, place, situation, time and present Patient gives permission to discuss discharge plans with: (name, relationship and number) : Penny robb - [phone] Patient's ability to cope with chronic illness : d. No chronic illness Does the patient have the ability to pay for or attain post discharge needs / services? : Yes Functional screen assessment: : Basic needs can adequately be met by self Family / Caregiver's ability to cope with chronic illness: : a. Adequate (ability to meet patient's medical needs, ensures patient attends medical appts.) Physical Status: : Independent with ADL's Equipment needed for post hospitalization: : Home Oxygen with Nasal Cannula Living Arrangements: : Home Alone with Support Partial Dependence, assistance required for: : Ambulation / Mobility Other Equipment comments: : May not qualify for oxygen, I do not see a chronic diagnosis Results of this evaluation have been discussed with: : Patient Patient with capacity for self-care or can be cared for in same environment as prior to hospitalization? : Yes Baseline cognitive status: : *Oriented to person, place, situation, time and present Physical environment modification needed / anticipated for discharge: : No Medication Management: : Patient states can afford medications Planned post hospital services available for patient? : Yes Pharmacy name(s): : [facility] on [address] PCP is Mary Nair Does Patient have transportation to get home and to follow-up medical appointments when discharged from the hospital? : Yes Comments: : States he drives himself Would patient like to participate in any Care Coordination programs (if applicable): : Not applicable Equipment in use: : Walker - [place] Mental health screen: : Receiving treatment, not under the care of a mental health provider Abuse/Neglect: : None Resources / Services in place: : None DCP Re-evaluation QUESTION: ANSWER Would patient like to participate in any Care Coordination programs (if applicable): : Not applicable PATIENT: IWONA BIRCH ENCOUNTER: [id number] MEDICAL RECORD#: [id number] ADMISSION DATE: 03/29/2021 DISCHARGE DATE: ATTENDING MD: BRYANT VALDES : AGE: 71 MARITAL STATUS: S DC PLAN ID: [id number] FACILITY: [facility] PRINTED ON: 04/18/21 18:25 CT All edits/amendments must be made on the electronic document DICTATION DATE: 04/18/211823 CENTRALIZED TRAFFIC CONTROL OPERATOR: SUSAN 04/18/211823 RPT#: [id number] DC DATE: STATUS: ADM IN [facility] [address] [place] [address] END OF REPORT
[2021-04-18 20:00] VITALS: BP 124/64
--- NOTE | 2021-04-19 01:04 | NUR ---
REPORT RECEIVED. PT A&O, UP IN BED WATCHING TV. NO S/S OF DISTRESS OBSERVED. RR EVEN & UNLABORED ON 2L. SR 76 ON TELE. R UA CVL W/ NS @ 50 ML/HR INFUSING. BED LOCKED AND LOWERED, CL IN REACH. WILL CONT POC.
[2021-04-19 02:03] VITALS: BP 133/57
[2021-04-19 06:33] LABS: ALBUMIN 2.6 g/dL (3.4-5.0); BILIRUBIN - TOTAL 0.25 mg/dL (0.2-1.3); CALCIUM 8.2 mg/dL (8.5-10.1); CARBON DIOXIDE 32.1 mmol/L (21.0-32.0); CREATININE - SERUM 1.2 mg/dL (0.6-1.3); PROTEIN - SERUM 6.6 g/dL (6.4-8.2)
[2021-04-19 06:39] LABS: ANION GAP 8.5 mmol/L (8-16); POTASSIUM - SERUM 3.6 mmol/L (3.5-5.1)
[2021-04-19 06:50] VITALS: BP 126/60
[2021-04-19 06:50] LABS: BASOPHILS 0.8 % (0-2); EOSINOPHILS 2.7 % (0-7); HEMATOCRIT 31.8 % (42.0-54.0); HEMOGLOBIN 10.4 g/dL (13.5-17.5); LYMPHOCYTES 13.1 % (15-50); MCH 28.5 pg (26.0-34.0); MCHC 32.8 g/dL (31.0-37.0); MCV 86.8 fL (80.0-100.0); MEAN PLATELET VOLUME 8.7 fL (7.4-10.4); MONOCYTES 8.5 % (2-11); NEUTROPHILS 74.9 % (40-80); PLATELET COUNT 343 10x3/uL (130-400); RBC 3.66 10x6/uL (4.20-6.10); RDW 17.4 % (11.5-14.5); WBC 10.7 10x3/uL (4.8-10.8)
[2021-04-19 07:34] VITALS: BP 126/60
[2021-04-19 09:00] VITALS: BP 106/47
--- NOTE | 2021-04-19 11:30 | NUR ---
GT BELT, PATIENT MIN ASST TO STAND AND TO WALK 250 FEET USING WALKER.
[2021-04-19] MEDS ORDERED: BUPROPION HCL100 M1 PO (11:50)
[2021-04-19] MEDS ORDERED: PROZAC10 MG PO (11:50)
[2021-04-19] MEDS ORDERED: TRAZODONE HCL50 MG PO (11:50)
[2021-04-19] MEDS ORDERED: FUROSEMIDE20 MG PO (11:51)
--- NOTE | 2021-04-19 12:17 | NUR ---
OT NOTE: BED MOB WITH SPV; ABLE TO JESICA SHOES WHILE SITTING ON EOB WITH SET UP; AMB TO SINK WITH MIN ASSIST; SINK HYGIENE WITH SBA; PT STATES THAT HE HAS NOT BEEN GETTING UP TO GO TO THE BATHROOM BECAUSE HE DOESNT KNOW WHEN HE HAS TO GO.. SITS UP IN CHAIR WITH URINAL BETWEEN LEGS. AMB WITH PT WITHOUT 02 FOR WALK TEST.. PT AMB 250 FT WITH WALKER AND CGA.. PTS 02 SATS CHECKED Q 50 FT.. STAYED AT 91-93% FOR FIRST 100 FT; DROPPED TO 90 AFTER APPROX 175' AND REMAINED AROUND THAT LEVEL. AFTER WALK, PT SAT UP IN CHAIR.. CHECKED 2 MORE TIMES AND SATS WERE 93% AND 95%..INFORMED MEMBERS OF [facility]. NEHA CUMMINGS, OTR/L 215
--- NOTE | 2021-04-20 17:32 | MORECARE ---
CASE MANAGEMENT DISCHARGE SUMMARY PATIENT: IWONA BIRCH UNIT: [id number] ADM DATE: 03/29/21 AGE: 71 : 49 SEX: M ROOM/BED: D.2102 AUTHOR: MIKAL,DOC PHYSICIAN: REFERRING PHYSICIAN: BRYANT BENITO MD DATE OF SERVICE: 04/20/21 Case Management Discharge Planning Summary COMMENTS ENTERED DATE: 04/18/21 18:18 CT COMMENT TYPE: Discharge Planning REVIEWER: Ivana Peterson CM notified that [facility] has accepted and have received auth from insurance. CM filled out GIRISH and sent to [facility] for review / approval late this evening. Hopefully will get approval and can d/c tomorrow. ENTERED DATE: 04/14/21 20:23 CT COMMENT TYPE: Discharge Planning REVIEWER: Ivana Peterson Patient not a candidate for INPT Rehab. Spoke with Patient he agrees to SNF placement. CM sent referral to [facility]. CM will need to complete a GIRISH if accepted to [facility]. Awaiting auth for SNF by [facility]. CM will continue to follow and assist as needed. ENTERED DATE: 04/11/21 17:43 CT COMMENT TYPE: Discharge Planning REVIEWER: Ivana Peterson Inpatient Rehab [facility] evaluating patient. Awaiting therapy note to send for auth. ENTERED DATE: 04/04/21 15:56 CT COMMENT TYPE: Discharge Planning REVIEWER: Kaila Cook with [facility] states they are capped on [facility] and cannot accept at this time. Joyce states we can check back when closer to [place]. ENTERED DATE: 04/04/21 14:33 CT COMMENT TYPE: Discharge Planning REVIEWER: Kaila Strickland CM received a call from [facility] at [facility] that they cannot accept because of psychiatric history. [facility] also declined because [facility]. [facility] do not take [facility] insurance. I faxed clinical to [facility]. CM will continue to follow and assist with discharge planning/needs. ENTERED DATE: 04/04/21 14:04 CT COMMENT TYPE: Discharge Planning REVIEWER: Kaila Strickland DC PLAN: Home with home health ANTICIPATED DC NEEDS: [facility] signed CM met with patient to complete initial dc planning assessment. CM educated patient on the CM role and verbal consent given by patient to complete assessment. CM verified patient's address, phone number, and emergency contact phone numbers. Patient lives at home alone. At discharge patient plans to return and feels this is a safe discharge. CM discussed availability of home health, rehab services, and medical equipment. Patient denied need for rehab. He states he has been there before and does not like it. He does consent to home health and [facility] signed. He states he may need oxygen. I do not see a chronic lung diagnosis in his chart, but I will send clinical to [place] and see if they can see anything that would qualify him for oxygen. Transportation provider at discharge will be his friend, Penny. He states he drives and has a neighbor, Indira, that can assist as needed. CM will continue to follow and will assist as needed with dc plans/needs. DCP REVIEW SUMMARY ANTICIPATED D/C DATE: EXPECTED LOS : CASE STATUS: DCP Initiated INITIAL REVIEW: 04/04/2021 INITIAL REVIEWER: Kaila Strickland FINAL DISCHARGE DISPOSITION: : FINAL REVIEWER: FINAL REVIEW DATE: DCP Focus Questions & Answers DCP Screen QUESTION: ANSWER High Risk Factors: : Poor social support DCP Evaluation QUESTION: ANSWER Patient and/or caregiver agree upon recommended discharge plan? : Yes Family / Caregiver's ability to cope with chronic illness: : a. Adequate (ability to meet patient's medical needs, ensures patient attends medical appts.) Patient's current cognitive status: : *Oriented to person, place, situation, time and present Patient gives permission to discuss discharge plans with: (name, relationship and number) : Penny robb - [phone] Patient's ability to cope with chronic illness : d. No chronic illness Does the patient have the ability to pay for or attain post discharge needs / services? : Yes Functional screen assessment: : Basic needs can adequately be met by self Family / Caregiver's ability to cope with chronic illness: : a. Adequate (ability to meet patient's medical needs, ensures patient attends medical appts.) Physical Status: : Independent with ADL's Equipment needed for post hospitalization: : Home Oxygen with Nasal Cannula Living Arrangements: : Home Alone with Support Partial Dependence, assistance required for: : Ambulation / Mobility Other Equipment comments: : May not qualify for oxygen, I do not see a chronic diagnosis Results of this evaluation have been discussed with: : Patient Patient with capacity for self-care or can be cared for in same environment as prior to hospitalization? : Yes Baseline cognitive status: : *Oriented to person, place, situation, time and present Physical environment modification needed / anticipated for discharge: : No Medication Management: : Patient states can afford medications Planned post hospital services available for patient? : Yes Pharmacy name(s): : [facility] on [address] [place] PCP is Mary Nair Does Patient have transportation to get home and to follow-up medical appointments when discharged from the hospital? : Yes Comments: : States he drives himself Would patient like to participate in any Care Coordination programs (if applicable): : Not applicable Equipment in use: : Walker - [place] Mental health screen: : Receiving treatment, not under the care of a mental health provider Abuse/Neglect: : None Resources / Services in place: : None DCP Re-evaluation QUESTION: ANSWER Would patient like to participate in any Care Coordination programs (if applicable): : Not applicable PATIENT: IWONA BIRCH ENCOUNTER: [id number] MEDICAL RECORD#: [id number] ADMISSION DATE: 03/29/2021 DISCHARGE DATE: 04/19/2021 ATTENDING MD: BRYANT VALDES : AGE: 71 MARITAL STATUS: S DC PLAN ID: [id number] FACILITY: [facility] PRINTED ON: 04/20/21 17:32 CT All edits/amendments must be made on the electronic document DICTATION DATE: 04/20/211731 DISK RECORDIST: SUSAN 04/20/211731 RPT#: [id number] DC DATE:04/19/21 STATUS: DIS IN [facility] [address] [place] [address] END OF REPORT
--- NOTE | 2021-04-21 13:17 | MORECARE ---
CASE MANAGEMENT DISCHARGE SUMMARY PATIENT: IWONA BIRCH UNIT: [id number] ADM DATE: 03/29/21 AGE: 71 : 49 SEX: M ROOM/BED: D.2102 AUTHOR: MIKAL,DOC PHYSICIAN: REFERRING PHYSICIAN: BRYANT BENITO MD DATE OF SERVICE: 04/21/21 Case Management Discharge Planning Summary COMMENTS ENTERED DATE: 04/18/21 18:18 CT COMMENT TYPE: Discharge Planning REVIEWER: Ivana Peterson CM notified that [facility] has accepted and have received auth from insurance. CM filled out GIRISH and sent to [facility] for review / approval late this evening. Hopefully will get approval and can d/c tomorrow. ENTERED DATE: 04/14/21 20:23 CT COMMENT TYPE: Discharge Planning REVIEWER: Ivana Peterson Patient not a candidate for INPT Rehab. Spoke with Patient he agrees to SNF placement. CM sent referral to [facility]. CM will need to complete a GIRISH if accepted to [facility]. Awaiting auth for SNF by [facility]. CM will continue to follow and assist as needed. ENTERED DATE: 04/11/21 17:43 CT COMMENT TYPE: Discharge Planning REVIEWER: Ivana Peterson Inpatient Rehab [facility] evaluating patient. Awaiting therapy note to send for auth. ENTERED DATE: 04/04/21 15:56 CT COMMENT TYPE: Discharge Planning REVIEWER: Kaila Cook with [facility] states they are capped on [facility] and cannot accept at this time. Joyce states we can check back when closer to [place]. ENTERED DATE: 04/04/21 14:33 CT COMMENT TYPE: Discharge Planning REVIEWER: Kaila Strickland CM received a call from [facility] at [facility] that they cannot accept because of psychiatric history. [facility] also declined because [facility]. [facility] do not take [facility] insurance. I faxed clinical to [facility]. CM will continue to follow and assist with discharge planning/needs. ENTERED DATE: 04/04/21 14:04 CT COMMENT TYPE: Discharge Planning REVIEWER: Kaila Strickland DC PLAN: Home with home health ANTICIPATED DC NEEDS: [facility] signed CM met with patient to complete initial dc planning assessment. CM educated patient on the CM role and verbal consent given by patient to complete assessment. CM verified patient's address, phone number, and emergency contact phone numbers. Patient lives at home alone. At discharge patient plans to return and feels this is a safe discharge. CM discussed availability of home health, rehab services, and medical equipment. Patient denied need for rehab. He states he has been there before and does not like it. He does consent to home health and [facility] signed. He states he may need oxygen. I do not see a chronic lung diagnosis in his chart, but I will send clinical to [place] and see if they can see anything that would qualify him for oxygen. Transportation provider at discharge will be his friend, Penny. He states he drives and has a neighbor, Indira, that can assist as needed. CM will continue to follow and will assist as needed with dc plans/needs. DCP REVIEW SUMMARY ANTICIPATED D/C DATE: EXPECTED LOS : CASE STATUS: DCP Initiated INITIAL REVIEW: 04/04/2021 INITIAL REVIEWER: Kaila Strickland FINAL DISCHARGE DISPOSITION: : FINAL REVIEWER: FINAL REVIEW DATE: DCP Focus Questions & Answers DCP Screen QUESTION: ANSWER High Risk Factors: : Poor social support DCP Evaluation QUESTION: ANSWER Patient and/or caregiver agree upon recommended discharge plan? : Yes Family / Caregiver's ability to cope with chronic illness: : a. Adequate (ability to meet patient's medical needs, ensures patient attends medical appts.) Patient's current cognitive status: : *Oriented to person, place, situation, time and present Patient gives permission to discuss discharge plans with: (name, relationship and number) : Penny robb - [phone] Patient's ability to cope with chronic illness : d. No chronic illness Does the patient have the ability to pay for or attain post discharge needs / services? : Yes Functional screen assessment: : Basic needs can adequately be met by self Family / Caregiver's ability to cope with chronic illness: : a. Adequate (ability to meet patient's medical needs, ensures patient attends medical appts.) Physical Status: : Independent with ADL's Equipment needed for post hospitalization: : Home Oxygen with Nasal Cannula Living Arrangements: : Home Alone with Support Partial Dependence, assistance required for: : Ambulation / Mobility Other Equipment comments: : May not qualify for oxygen, I do not see a chronic diagnosis Results of this evaluation have been discussed with: : Patient Patient with capacity for self-care or can be cared for in same environment as prior to hospitalization? : Yes Baseline cognitive status: : *Oriented to person, place, situation, time and present Physical environment modification needed / anticipated for discharge: : No Medication Management: : Patient states can afford medications Planned post hospital services available for patient? : Yes Pharmacy name(s): : [facility] on [address] PCP is Mary Nair Does Patient have transportation to get home and to follow-up medical appointments when discharged from the hospital? : Yes Comments: : States he drives himself Would patient like to participate in any Care Coordination programs (if applicable): : Not applicable Equipment in use: : [place] - [place] Mental health screen: : Receiving treatment, not under the care of a mental health provider Abuse/Neglect: : None Resources / Services in place: : None DCP Re-evaluation QUESTION: ANSWER Would patient like to participate in any Care Coordination programs (if applicable): : Not applicable PATIENT: IWONA BIRCH ENCOUNTER: [id number] MEDICAL RECORD#: [id number] ADMISSION DATE: 03/29/2021 DISCHARGE DATE: 04/19/2021 ATTENDING MD: BRYANT VALDES : AGE: 71 MARITAL STATUS: S DC PLAN ID: [id number] FACILITY: [facility] PRINTED ON: 04/21/21 13:16 CT All edits/amendments must be made on the electronic document DICTATION DATE: 04/21/216 GLASS INSTALLER TECHNICIAN: SUSAN 04/21/21 1316 RPT#: [id number] DC DATE:04/19/21 STATUS: DIS IN [facility] [address] [place] [address] END OF REPORT
== END 2021-04-19 15:00 | DRG 987 ==
LOC: D.ER 07:23 → D.M2 08:44
PROVIDERS: Family Medicine; Internal Medicine Pulmonary Disease; Radiology Vascular & Interventional Radiology; ADMIT Emergency Medicine; ATTEND Emergency Medicine
PROC: 05H533Z Insertion of Infusion Device into Right Subclavian Vein, Percutaneous Approach (ICD-10-PCS; 2021-04-02)
PROC: 07DR3ZX Extraction of Iliac Bone Marrow, Percutaneous Approach, Diagnostic (ICD-10-PCS; 2021-04-05)
PROC: 0QB23ZX Excision of Right Pelvic Bone, Percutaneous Approach, Diagnostic (ICD-10-PCS; principal; 2021-04-05 13:00)
DX: J18.9 Pneumonia, unspecified organism (principal); J96.01 Acute respiratory failure with hypoxia; G93.41 Metabolic encephalopathy; G91.9 Hydrocephalus, unspecified; N39.0 Urinary tract infection, site not specified; F33.9 Major depressive disorder, recurrent, unspecified; Z20.822 Contact with and (suspected) exposure to COVID-19; G62.9 Polyneuropathy, unspecified; R42 Dizziness and giddiness; E11.8 Type 2 diabetes mellitus with unspecified complications; Z79.4 Long term (current) use of insulin; G89.29 Other chronic pain; M54.9 Dorsalgia, unspecified; R62.7 Adult failure to thrive; Z68.22 Body mass index [BMI] 22.0-22.9, adult; D64.9 Anemia, unspecified; E87.6 Hypokalemia; E11.65 Type 2 diabetes mellitus with hyperglycemia; I25.10 Atherosclerotic heart disease of native coronary artery without angina pectoris; R33.9 Retention of urine, unspecified; Z87.891 Personal history of nicotine dependence; E11.21 Type 2 diabetes mellitus with diabetic nephropathy; E78.5 Hyperlipidemia, unspecified; K21.9 Gastro-esophageal reflux disease without esophagitis; M81.0 Age-related osteoporosis without current pathological fracture